=== PATIENT | male | born 1960 | race Caucasian/White ===

== ENCOUNTER 2018-03-22 18:27 | Inpatient (IN) ==
[2018-03-22 19:32] LABS: Basophils # (Auto) 0 K/mcL (0.0-0.3); Basophils % (Auto) 0.1 % (0.0-2.0); Eosinophils # (Auto) 0.5 K/mcL (0.0-0.7); Eosinophils % (Auto) 2.4 % (0.0-7.0); Granulocytes % (Auto) 85.9 % (38.0-78.0); Lymphocytes # (Auto) 0.9 K/mcL (1.5-4.8); Lymphocytes % (Auto) 4.5 % (15.5-49.0); Mean Corpuscular HGB Conc 33.3 g/dL (31.0-36.0); Mean Corpuscular Hemoglobin 30.9 pg (26.0-34.0); Monocytes # (Auto) 1.4 K/mcL (0.1-0.9); Monocytes % (Auto) 7.1 % (1.0-12.0); Platelet Count 204 K/mcL (140-440); RBC 4.67 M/mcL (4.50-5.90)
[2018-03-22 19:45] LABS: Appearance,Urine HAZY; Bacteria,Urine 0 /hpf (0); Bilirubin,Urine NEG (NEG); Color,Urine AMBER; Glucose,Urine (UA) NEGATIVE (NEG); Leukocyte Esterase,Urine 250 /uL (NEG); Mucus,Urine FEW /hpf (0); Protein,Urine 100 mg/dL (NEG); Specific Gravity,Urine 1.018 (1.000-1.035); Urine Blood 0.2 mg/dL (<0.03); Urine Hyaline Cast 5 /lpf (0-2); Urine RBC 10 /hpf (0-1); Urine Squamous Epithelial Cell 1 /hpf (0-4); Urine Transitional Epi Cells 1 /hpf (0-2); Urine WBC > 182 /hpf (0-4)
[2018-03-22 19:53] LABS: ALT/SGPT 20 U/l (0-40); Albumin 4.1 gm/dL (3.2-5.2); Albumin/Globulin Ratio 1.2 (1.0-2.3); Alkaline Phosphatase 54 U/L (39-117); Blood Urea Nitrogen 18 mg/dl (6-20)
[2018-03-22] MEDS ORDERED: 0.9 % SODIUM CHLORIDE 1,000 ML IV ONE ×2 (19:55→21:18)
[2018-03-22] MEDS ORDERED: cefTRIAXone 1 GM VIAL IV ONE ×2 (19:56→21:50)
--- NOTE | 2018-03-22 20:38 | Emergency Department Note ---
Male Urogenital HPI - General Chief complaint: Urogenital-Male Stated complaint: uti Time Seen by Provider: 03/22/18 18:35 Source: patient Mode of arrival: ambulatory Limitations: no limitations - History of Present Illness HPI Narrative: 57-year-old male presents with 3 day history of frequent urination but feeling like he needs to void more and cannot void. He is also been incontinent of urine and has had had to wear depends because the incontinence is so bad. He also has right flank pain. Denies dysuria. Positive chills, unknown fever. He does arrive very diaphoretic. No nausea or vomiting. No abdominal pain. Does like a severe distention in his bladder area. Has never had anything like this previously. Denies shortness of breath or difficulty breathing. States is just very hard to get comfortable. holding the right flank area. Improves with: none Worsens with: none Reports: incontinence. Denies: discharge, swelling, mass, urinary retention - Related Data Home Medications Medication Instructions Recorded Confirmed blood-glucose meter kit See Dose Instructions .ROUTE 07/13/15 03/02/18 .MEDSUPPLY isosorbide mononitrate ER 60 mg 60 mg PO BID tab 07/13/15 03/02/18 tablet,extended release 24 hr losartan 100 1 tab PO QDAY tab 07/13/15 03/02/18 mg-hydrochlorothiazide 25 mg tablet potassium chloride ER 20 mEq 20 meq PO QDAY tab 07/13/15 03/02/18 tablet,extended release(part/cryst) Previous Rx's Medication Instructions Recorded Truetest Test Strips See Dose Instructions .ROUTE 03/17/16 .MEDSUPPLY #100 each NS lancets 30 gauge See Dose Instructions .ROUTE 03/17/16 .MEDSUPPLY #100 each atorvastatin 20 mg tablet 20 mg PO QPM #90 tab 04/20/17 metoprolol tartrate 100 mg tablet 100 mg PO QDAY #90 tab 07/30/17 albuterol sulfate HFA 90 2 puff INHALATION Q4-6H PRN #18 g 09/28/17 mcg/actuation aerosol inhaler Lift Chair #1 ea 09/30/17 pantoprazole 40 mg tablet,delayed 40 mg PO QAM #90 tab 10/15/17 release metformin ER 500 mg 1,000 mg PO QAM #180 tab 02/10/18 tablet,extended release 24 hr gabapentin 300 mg capsule 600 mg PO TID #180 cap 02/22/18 hydrocodone 10 mg-acetaminophen 1 tab PO Q6H PRN #112 tab 03/03/18 325 mg tablet clonazepam 1 mg tablet 1 mg PO .COMPLEX #45 tab 03/19/18 Allergies Allergy/AdvReac Type Severity Reaction Status Date / Time codeine Allergy Unknown Rash Verified 03/02/18 13:06 latex Allergy Unknown Unknown Verified 03/02/18 13:06 morphine Allergy Unknown Rash Verified 03/02/18 13:06 Review of Systems All systems ED: reviewed and negative except as stated. Past Medical History - Past Medical History [facility] Narrative: Medical History (Last Reviewed 03/02/18 @ 13:05 by Kaley Collado CMA) Colon adenomas (Chronic) Neck Pain (Chronic) Onychomycosis (Chronic) Swelling (Chronic) Orthopnea (Chronic) Intentional weight loss (Chronic) Tobacco abuse (Resolved) Sleep apnea (Chronic) Shoulder impingement syndrome (Chronic) Sciatica (Chronic) Rheumatoid arthritis (Chronic) Osteoporosis (Chronic) Osteoarthritis, shoulder (Chronic) Osteoarthritis (Chronic) Obesity (Chronic) Myocardial infarction acute (Inactive) Muscle ache (Chronic) Low back pain (Chronic) Joint pain (Chronic) Insomnia (Chronic) Hypertension, essential (Chronic) Hyperlipidemia (Chronic) Heartburn (Chronic) Gastroesophageal reflux (Chronic) Fatigue (Chronic) Diabetes mellitus, type II (Chronic) Depressive disorder (Chronic) CAD (coronary artery disease) (Chronic) COPD (chronic obstructive pulmonary disease) (Chronic) Anxiety disorder (Chronic) Past Surgical History (Last Reviewed 03/02/18 @ 13:05 by Kaley Collado CMA) History of colonoscopy (Resolved) History of fusion of cervical spine (Resolved) Medical history: Reports: other (poor dentition) Psychiatric history: Reports: no psych history Surgical history ED: Reports: non-contributory - Social History smoking status: Former smoker Drug use: Reports: none Physical Exam Limitations: no limitations General appearance: alert, other (Diaphoretic) Head: atraumatic, normocephalic, normal inspection Eye: Present: normal appearance. Absent: conjunctival injection ENT: mucous membranes moist Neck: Present: normal inspection, trachea midline. Absent: tenderness, lymphadenopathy Chest: Present: normal inspection, symmetric chest wall rise Respiratory: Present: normal lung sounds bilaterally. Absent: respiratory distress, wheezes, accessory muscle use Cardiovascular: Present: regular rate, normal heart sounds Abdominal: Present: soft, normal bowel sounds. Absent: distention, tenderness Back: Present: CVA tenderness (R) Neurological: Present: alert, oriented X3 Psychiatric: Present: normal affect, normal mood Skin: Present: warm, intact, normal color, diaphoresis. Absent: rash Course Course Narrative: Dr. Liz called with radiology results. Patient has a lot of inflammation around the bladder with a severe cystitis as well as an enlarged prostate. [id number] I did speak with Dr. Horne, the hospitalist who agrees to admit the patient. Vital Signs Temperature 98.9 F 03/22/18 18:42 Pulse Rate 92 H 03/22/18 18:42 Respiratory Rate 24 H 03/22/18 18:42 Pulse Oximetry (%) 98 03/22/18 18:42 Temperature 98.9 F 03/22/18 18:42 Pulse Rate 92 H 03/22/18 18:42 Respiratory Rate 24 H 03/22/18 18:42 Pulse Oximetry (%) 98 03/22/18 18:42 Urogenital-Male - Lab Data Lab results reviewed: Yes I reviewed the patient's lab results. Result diagrams: 03/22/18 18:54 03/22/18 18:54 Lab Results 03/22/18 03/22/18 03/22/18 Range/Units 18:40 18:54 18:54 WBC 19.8 H (4.5-11.0) K/mcL RBC 4.67 (4.50-5.90) M/mcL Hgb 14.4 (13.5-16.5) g/dL Hct 43.4 (41.0-55.0) % MCV 93.0 (80.0-100.0) fL MCH 30.9 (26.0-34.0) pg MCHC 33.3 (31.0-36.0) g/dL RDW 13.0 (11.5-14.5) % Plt Count 204 (140-440) K/mcL MPV 8.5 (7.4-10.4) fL Gran % 85.9 H (38.0-78.0) % Lymph % (Auto) 4.5 L (15.5-49.0) % [place] % (Auto) 7.1 (1.0-12.0) % Eos % (Auto) 2.4 (0.0-7.0) % Baso % (Auto) 0.1 (0.0-2.0) % Gran # 17.0 H (1.8-8.0) K/mcL Lymph # (Auto) 0.9 L (1.5-4.8) K/mcL [place] # (Auto) 1.4 H (0.1-0.9) K/mcL Eos # (Auto) 0.5 (0.0-0.7) K/mcL Baso # (Auto) 0 (0.0-0.3) K/mcL VBG Lactic Acid (0.5-2.2) mmol/L Sodium 136 (133-145) mmol/L Potassium 3.6 (3.3-5.1) mmol/L Chloride 94 L (96-108) mmol/L Carbon Dioxide 26 (22-30) mmol/L Anion Gap 16.0 (8-16) BUN 18 (6-20) mg/dl Creatinine 1.3 H (0.7-1.2) mg/dl GFR Calculation 60 Glucose 155 H (70-105) mg/dL Calcium 9.3 (8.6-10.4) mg/dl Total Bilirubin 2.0 H (0.0-1.0) mg/dL AST 15 (0-37) U/l ALT 20 (0-40) U/l Alkaline Phosphatase 54 (39-117) U/L Total Protein 7.5 (5.9-8.4) gm/dL Albumin 4.1 (3.2-5.2) gm/dL Globulin 3.4 (2.2-3.7) gm/dL Albumin/Globulin Ratio 1.2 (1.0-2.3) Urine Color [place] Urine Appearance Hazy Urine pH 5.0 (5.0-9.0) Ur Specific [place] 1.018 (1.000-1.035) Urine Protein 100 A (NEG) mg/dL Urine Glucose (UA) Negative (NEG) mg/dL Urine Ketones Neg (NEG) mg/dL Urine Occult Blood 0.2 A (<0.03) mg/dL Urine Nitrate Neg (NEG) Urine Bilirubin Neg (NEG) mg/dL Urine Urobilinogen 2.0 A (NEG) mg/dL Ur Leukocyte Esterase 250 A (NEG) /uL Urine RBC 10 H (0-1) /hpf Urine WBC > 182 H (0-4) /hpf Ur Squamous Epith Cells 1 (0-4) /hpf Ur Transition Epith Cell 1 (0-2) /hpf Urine Bacteria 0 (0) /hpf Hyaline Casts 5 H (0-2) /lpf Urine Mucus Few (0) /hpf Ur Culture Indicated? Yes 03/22/18 Range/Units 20:08 WBC (4.5-11.0) K/mcL RBC (4.50-5.90) M/mcL Hgb (13.5-16.5) g/dL Hct (41.0-55.0) % MCV (80.0-100.0) fL MCH (26.0-34.0) pg MCHC (31.0-36.0) g/dL RDW (11.5-14.5) % Plt Count (140-440) K/mcL MPV (7.4-10.4) fL Gran % (38.0-78.0) % Lymph % (Auto) (15.5-49.0) % [place] % (Auto) (1.0-12.0) % Eos % (Auto) (0.0-7.0) % Baso % (Auto) (0.0-2.0) % Gran # (1.8-8.0) K/mcL Lymph # (Auto) (1.5-4.8) K/mcL [place] # (Auto) (0.1-0.9) K/mcL Eos # (Auto) (0.0-0.7) K/mcL Baso # (Auto) (0.0-0.3) K/mcL VBG Lactic Acid 2.4 H (0.5-2.2) mmol/L Sodium (133-145) mmol/L Potassium (3.3-5.1) mmol/L Chloride (96-108) mmol/L Carbon Dioxide (22-30) mmol/L Anion Gap (8-16) BUN (6-20) mg/dl Creatinine (0.7-1.2) mg/dl GFR Calculation Glucose (70-105) mg/dL Calcium (8.6-10.4) mg/dl Total Bilirubin (0.0-1.0) mg/dL AST (0-37) U/l ALT (0-40) U/l Alkaline Phosphatase (39-117) U/L Total Protein (5.9-8.4) gm/dL Albumin (3.2-5.2) gm/dL Globulin (2.2-3.7) gm/dL Albumin/Globulin Ratio (1.0-2.3) Urine Color Urine Appearance Urine pH (5.0-9.0) Ur Specific [place] (1.000-1.035) Urine Protein (NEG) mg/dL Urine Glucose (UA) (NEG) mg/dL Urine Ketones (NEG) mg/dL Urine Occult Blood (<0.03) mg/dL Urine Nitrate (NEG) Urine Bilirubin (NEG) mg/dL Urine Urobilinogen (NEG) mg/dL Ur Leukocyte Esterase (NEG) /uL Urine RBC (0-1) /hpf Urine WBC (0-4) /hpf Ur Squamous Epith Cells (0-4) /hpf Ur Transition Epith Cell (0-2) /hpf Urine Bacteria (0) /hpf Hyaline Casts (0-2) /lpf Urine Mucus (0) /hpf Ur Culture Indicated? - Radiology Data Radiology results reviewed: Yes I reviewed the patient's radiology results. Disposition Pt seen by INFUSION THERAPY NURSE/PA only: Yes Clinical Impression: Cystitis, Right flank pain Condition: Fair Referrals: Hadley Urbina MD [Primary Care Provider] - Time of Disposition: 21:25
[2018-03-22] MEDS ORDERED: cefTRIAXone 1 GM VIAL IM ONE (21:18)
[2018-03-22] MEDS ORDERED: LEVOFLOXACIN 750 MG/150 ML BAG IV ONE (21:18)
[2018-03-22] MEDS ORDERED: HYDROcodone/APAP 10/325MG TABLET PO ONE (22:31)
--- NOTE | 2018-03-22 22:45 | Internal Med History&Physical ---
Medical - H&P: [facility] Patient information: Note initiated : 03/22/18 at 10:45 pm Service Date, if different from initiated Date: [] Patient: Clifford Herbert a 57 y/o M admitted on for uti. Chief Complaint: [] Chief complaint: pain and chills History of present illness: Mr. Herbert is a 57 year old M with history of DM type II and morbid obesity who presents with three-day history of righ flank pain/incontinence. symptoms associated with increasing urinary frequency and lower abdominal discomfort. he describes pain as 6 out of 10-8 out of 10 mostly located in the right flank and epigastric area. He denies having prior similar events. He complains of low- grade fever with chills. Initial workup in the ER was significant for white count 20,000 along with tachycardia ,elevated venous lactate and pyuria. CT abdomen revealed cystitis with prostate enlargement possibly causing delayed urinary clearance. Hospitalist service was consulted in light of sepsis. patient was managed in ER per sepsis guidelines and received antibiotics crystalloids blood cultures. At the time of evaluation patient is alert oriented. he endorses to symptoms as above, he denies diarrhea or headache, photophobia, but endorses to myalgia and weakness. review of systems 10 point review systems was performed and is negative except once possible Medical - H&P: PMH Medical history: DM type II Anxiety disorder morbid obesity Neuropathy degenerative joint disease Coronary artery disease hyperlipidemia hypertension Pertinent family history: noncontributory Social history: quit smoking many years ago and lives with Drug use: none Alcohol use: none Medical - H&P: Meds Home Medications Medication Instructions Recorded Confirmed Type isosorbide mononitrate ER 60 mg 60 mg PO BID tab 07/13/15 03/23/18 History tablet,extended release 24 hr losartan 100 1 tab PO HS tab 07/13/15 03/23/18 History mg-hydrochlorothiazide 25 mg tablet potassium chloride ER 20 mEq 20 meq PO QDAY tab 07/13/15 03/23/18 History tablet,extended release(part/cryst) atorvastatin 20 mg tablet 20 mg PO QPM #90 tab 04/20/17 03/22/18 Rx metoprolol tartrate 100 mg tablet 100 mg PO QDAY #90 tab 07/30/17 03/23/18 Rx albuterol sulfate HFA 90 2 puff INHALATION Q4-6H PRN #18 g 10/30/17 04/23/18 Rx mcg/actuation aerosol inhaler metformin ER 500 mg 1,000 mg PO QAM #180 tab 02/10/18 03/23/18 Rx tablet,extended release 24 hr gabapentin 300 mg capsule 600 mg PO TID #180 cap 02/22/18 03/23/18 Rx hydrocodone 10 mg-acetaminophen 1 tab PO Q6H PRN #112 tab 03/03/18 03/23/18 Rx 325 mg tablet clonazePAM [Klonopin] 1 mg PO HS 03/22/18 03/22/18 History Nitroglycerin [Nitrostat] 0.4 mg SL Q5M PRN 03/23/18 03/23/18 History clonazePAM [KlonoPIN] 0.5 mg PO DAILY PRN 03/23/18 03/23/18 History Allergies Allergy/AdvReac Type Severity Reaction Status Date / Time codeine Allergy Intermediate Rash Verified 03/23/18 06:12 latex Allergy Intermediate Unknown Verified 03/23/18 06:12 morphine Allergy Intermediate Rash Verified 03/23/18 06:12 Medical - H&P: Exam - Constitutional Vitals: Temp Pulse Resp BP Pulse Ox 98.9 F 97 H 24 H 125/99 96 03/22/18 18:42 03/22/18 21:32 03/22/18 21:32 03/22/18 21:32 03/22/18 21:32 General appearance: morbidly obese Exam: Alert but anxious Pupils symmetric oral cavity dry No eardischarge Head normocephalic Neck lymphadenopathy S1-S2 regular rhythm tachycardia Systolic murmur nonlabored breathing,clear to auscultation abdomen softMinimally tender right flank and suprapubic area lower extremityno cyanosis clubbing, minimal edema Skin no suspicious lesion psych minimally anxious Neuro nonfocal Medical - H&P: Reslt - Labs CBC & Chem 7: 03/23/18 03:47 03/23/18 03:47 Labs: Short CBC 03/22/18 Range/Units 18:54 WBC 19.8 H (4.5-11.0) K/mcL Hgb 14.4 (13.5-16.5) g/dL Hct 43.4 (41.0-55.0) % Plt Count 204 (140-440) K/mcL BMP 03/22/18 18:54 Sodium 136 Potassium 3.6 Chloride 94 L Carbon Dioxide 26 BUN 18 Creatinine 1.3 H Glucose 155 H Calcium 9.3 Liver Function 03/22/18 Range/Units 18:54 Total Bilirubin 2.0 H (0.0-1.0) mg/dL AST 15 (0-37) U/l ALT 20 (0-40) U/l Alkaline Phosphatase 54 (39-117) U/L Albumin 4.1 (3.2-5.2) gm/dL Urine 03/22/18 Range/Units 18:40 Urine Color [place] Urine Appearance Hazy Urine pH 5.0 (5.0-9.0) Ur Specific [place] 1.018 (1.000-1.035) Urine Protein 100 A (NEG) mg/dL Urine Glucose (UA) Negative (NEG) mg/dL Medical - H&P: A/P (1) Sepsis Current visit: Yes Status: Acute * Sepsis secondary to complicated UTI-continue antibiotic coverage. Await cultures. * Complicated UTI likely secondary to delayed urinary clearance from prostate enlargement.continue antibiotic coverage. Await culture sensitivities * DM type II continue basal prandial insulin * history of coronary artery disease continueStatin/RYAN inhibitor/beta tania/ isosorbide * Anxiety disorder on clonazepam * neuropathy on gabapentin * Degenerative joint disease and hydrocodoneHome dose * Full code Plan * sepsis management per guidelines * antibiotic coverage * Lactate trending * Pre-existing medical condition management as above
[2018-03-22] MEDS ORDERED: LEVOFLOXACIN 750 MG/150 ML BAG IV SCH (23:43)
[2018-03-22] MEDS ORDERED: ACETAMINOPHEN 325 MG TABLET PO PRN (23:43)
[2018-03-22] MEDS ORDERED: MAGNESIUM SULFATE 2 GM/50 ML BAG IV PRN (23:43)
[2018-03-22] MEDS ORDERED: ACETAMINOPHEN 1,000 MG/100 ML BOTTLE IV PRN (23:43)
[2018-03-22] MEDS ORDERED: ONDANSETRON 4 MG/2 ML VIAL IV PRN (23:43)
[2018-03-22] MEDS ORDERED: POTASSIUM CHLORIDE 20 MEQ PACKET PO PRN (23:43)
[2018-03-22] MEDS ORDERED: 0.9 % SODIUM CHLORIDE 1,000 ML IV SCH (23:43)
[2018-03-22] MEDS: 0.9 % SODIUM CHLORIDE 10 ML SYRINGE IV SCH (23:46)
[2018-03-23] MEDS: cefTRIAXone 2 GM in DEXTROSE 5% IN WATER 50 ML IV SCH ×2 (00:15→09:32)
[2018-03-23] MEDS ORDERED: HYDROcodone/APAP 10/325MG TABLET PO PRN ×3 (01:52→10:23)
[2018-03-23] MEDS ORDERED: HYDROcodone/APAP 10/325MG TABLET PO ONE (03:23)
[2018-03-23 05:08] LABS: Mean Cell Volume 93.4 fL (80.0-100.0); Mean Corpuscular Hemoglobin 31.8 pg (26.0-34.0); Platelet Count 169 K/mcL (140-440); RBC 4.18 M/mcL (4.50-5.90); Red Cell Distribution Width 13.2 % (11.5-14.5)
[2018-03-23 05:14] LABS: ALT/SGPT 16 U/l (0-40); Albumin 3.5 gm/dL (3.2-5.2); Albumin/Globulin Ratio 1.1 (1.0-2.3); Alkaline Phosphatase 57 U/L (39-117); Bilirubin,Direct 0.2 mg/dL (0.0-0.3); Blood Urea Nitrogen 18 mg/dl (6-20); Gamma Glutamyl Transpeptidase 46 U/L (8-61); Uric Acid 7.6 mg/dL (2.5-8.0)
[2018-03-23] MEDS: 0.9 % SODIUM CHLORIDE 10 ML SYRINGE IV SCH ×3 (05:17→20:28)
--- NOTE | 2018-03-23 06:25 | XRay Report ---
CLINICAL INFORMATION: Elevated white blood cell count, fever and chills COMPARISON: 10/12/2017 two view chest. FINDINGS: Heart size, mediastinum and pulmonary vessels are unremarkable. There is minimal bibasilar airspace disease which is more likely atelectasis than developing infiltrate. No effusions . The bones and soft tissues tissues are normal IMPRESSION: Mild bibasilar airspace disease - likely atelectasis. If there is strong suspicion for pneumonia, suggest short-term radiographic follow-up Interpreted and Authenticated by: Jordon Liz 03/23/18
[2018-03-23 06:26] LABS: Band Neutrophils % 2 % (0-10); Lymphocytes % 6 % (15-49); Monocytes % (Manual) 11 % (1-12); Platelet Estimate NORMAL (NORMAL); RBC Morphology NORMAL (NORMAL); Segmented Neutrophils % 81 % (38-78)
--- NOTE | 2018-03-23 06:26 | Cat Scan Report ---
CLINICAL INFORMATION: Left flank pain and pyurea COMPARISON: None. TECHNIQUE: 0.625 mm helical slices were obtained from the mid heart through the subtrochanteric regions. Following reconstruction, 2.5 mm sagittal, coronal and axial reformatted images were processed and reviewed at bone and soft tissue windows.The exam was performed using radiation dose optimization techniques including, but not limited to, automated exposure control, adjustment of the mA and/or kV according to patient size and use of iterative reconstruction technique. FINDINGS: Both noncontrasted kidneys are normal and symmetric in size, position, configuration and attenuation: The right is 12.8 x 5.8 cm and the left is 12 x 5 cm. There is no evidence of abscess or other focal lesion in either kidney. There are no stones or hydronephrosis. The urinary bladder shows mild diffuse wall thickening, slight increased attenuation and mild inflammatory stranding in the pericystic fat. Findings suggest cystitis. The prostate is mildly enlarged: 5.4 x 6.1 x 5.3 cm Lung bases show no abnormality - no effusion. Visualized heart is normal in size: There is calcific plaque in the LAD coronary artery. Images through the abdomen show the noncontrasted liver, gallbladder and bile ducts, both adrenal glands, spleen, pancreas and aorta are normal in size, configuration and attenuation without focal lesion. There is no free air, free fluid and no adenopathy. Stomach, small and large bowel are grossly normal. Bone windows show only degenerative change in the lumbar spine IMPRESSION: Mild diffuse thickening and increased enhancement of the urinary bladder wall with inflammation in the adjacent fat. Findings compatible with the clinical diagnosis of cystitis. The prostate is mildly enlarged - especially for age. Patient could potentially have chronic bladder outlet obstruction with urinary stasis predisposing to infection. Interpreted and Authenticated by: Jordon Liz 03/23/18
[2018-03-23] MEDS ORDERED: GABAPENTIN 300 MG CAPSULE PO SCH (09:00)
[2018-03-23] MEDS ORDERED: ISOSORBIDE MONONITRATE 60 MG TAB.XL.24H PO SCH (09:00)
[2018-03-23] MEDS ORDERED: DOCUSATE SODIUM 100 MG CAPSULE PO SCH (09:00)
[2018-03-23] MEDS ORDERED: MULTIVIT,THER IRON,CA,FA & MIN 1 TABLET PO SCH (09:00)
[2018-03-23] MEDS ORDERED: METOPROLOL TARTRATE 50 MG TABLET PO SCH (09:00)
[2018-03-23] MEDS ORDERED: HEPARIN 5,000 UNIT/ML VIAL SQ SCH (09:00)
[2018-03-23] MEDS ORDERED: ALBUTEROL SULFATE 1 PUFF INHALER INH PRN ×2 (09:25→10:23)
[2018-03-23] MEDS ORDERED: clonazePAM 0.5 MG TABLET PO PRN ×2 (09:25→10:23)
[2018-03-23] MEDS ORDERED: NITROGLYCERIN 0.4 MG TAB.SUBL SL PRN ×2 (09:25→10:23)
[2018-03-23] MEDS ORDERED: DEXTROSE 31 GM ORAL.SUSP PO PRN ×2 (09:25→10:23)
[2018-03-23] MEDS ORDERED: DEXTROSE 50% 50 ML VIAL IV PRN ×2 (09:25→10:23)
--- NOTE | 2018-03-23 09:53 | Internal Med Progress Note ---
Medical - PN: Subj Patient information: Note initiated : 03/23/18 at 9:50 am Service Date, if different from initiated Date: [] Patient: Clifford Herbert a 57 y/o M admitted on 03/22/18 for uti. Chief Complaint: [] Interval history: Mr. Herbert is a 57 year old M with history of DM type II and morbid obesity who presents with three-day history of righ flank pain/incontinence. symptoms associated with increasing urinary frequency and lower abdominal discomfort. he describes pain as 6 out of 10-8 out of 10 mostly located in the right flank and epigastric area. He denies having prior similar events. He complains of low- grade fever with chills. Initial workup in the ER was significant for white count 20,000 along with tachycardia ,elevated venous lactate and pyuria. CT abdomen revealed cystitis with prostate enlargement possibly causing delayed urinary clearance. Hospitalist service was consulted in light of sepsis. patient was managed in ER per sepsis guidelines and received antibiotics crystalloids blood cultures. At the time of evaluation patient is alert oriented. he endorses to symptoms as above, he denies diarrhea or headache, photophobia, but endorses to myalgia and weakness. March 23-patient clinically improved. White count down from 20,000-15. Fever MAXIMUM TEMPERATURE 102.4. Abdominal pain improved. Lactate down trended. On broad antibiotic coverage. Cultures pending. Patient stable and transferring to medical floor. - Constitutional Vitals: Vital Signs Temp Pulse Resp BP Pulse Ox 97.6 F 98 H 15 150/90 96 03/23/18 07:19 03/23/18 03:33 03/23/18 09:22 03/23/18 07:19 03/23/18 07:22 Period Temp Pulse Resp BP Sys/Holbrook Pulse Ox Last 24 Hr 97.0 F-102.1 F 92-98 12-24 125-150/47-99 96-99 Intake and Output 03/22/18 03/23/18 03/23/18 21:59 05:59 13:59 Intake Total 1000 / 1000 1510 / 1510 240 / 240 Output Total Balance 1000 / 1000 1509 / 1509 240 / 240 Weight 317 lb 314 lb 6.08 oz Intake & Output: Intake & Output 04/23/18 04/24/18 04/24/18 21:59 05:59 13:59 Intake Total 1000 / 1000 1510 / 1510 240 / 240 Output Total Balance 1000 / 1000 1509 / 1509 240 / 240 Weight 317 lb 314 lb 6.08 oz Intake: IV 1000 / 1000 1150 / 1150 Sodium Chloride 0.9% 1,000 ml @ 1000 / 1000 1000 / 1000 Wide Open IV BOLUS ONE Rx#: [id number] Oral 360 / 360 240 / 240 Output: # of times incontinent of urine Other: Meal Breakfast Percent of Meal Consumed 75% Feeding Ability Assist with Tray Set Up General appearance: no acute distress Exam: alert oriented Nonlabored breathing nondistended abdomen Morbidly obese minimal anxiety Medical - PN: Obj Da - Labs CBC & Chem 7: 03/23/18 03:47 03/23/18 03:47 Labs: Abnormal Lab Results 03/23/18 03/23/18 03/22/18 03:47 03:47 20:08 WBC 16.1 H RBC 4.18 L Hgb 13.3 L Hct 39.0 L Gran % Lymph % (Auto) Gran # Lymph # (Auto) [place] # (Auto) Seg Neutrophils % 81 H Lymphocytes % 6 L WBC Morphology Abnorm A Vacuolated Monocytes 1+ A VBG Lactic Acid 2.4 H Chloride Creatinine 1.3 H Glucose 167 H Phosphorus 2.1 L Total Bilirubin 1.1 H Urine Protein Urine Occult Blood Urine Urobilinogen Ur Leukocyte Esterase Urine RBC Urine WBC Hyaline Casts 03/22/18 03/22/18 03/22/18 18:54 18:54 18:40 WBC 19.8 H RBC Hgb Hct Gran % 85.9 H Lymph % (Auto) 4.5 L Gran # 17.0 H Lymph # (Auto) 0.9 L [place] # (Auto) 1.4 H Seg Neutrophils % Lymphocytes % WBC Morphology Vacuolated Monocytes VBG Lactic Acid Chloride 94 L Creatinine 1.3 H Glucose 155 H Phosphorus Total Bilirubin 2.0 H Urine Protein 100 A Urine Occult Blood 0.2 A Urine Urobilinogen 2.0 A Ur Leukocyte Esterase 250 A Urine RBC 10 H Urine WBC > 182 H Hyaline Casts 5 H Meds: Medications Acetaminophen (Tylenol) 650 mg PO Q4-6HP PRN PRN Reason: PAIN/FEVER > 101 Hydrocodone Bitart/Acetaminophen ([place] 10/325mg) 1 tab PO Q6HP PRN PRN Reason: PAIN LEVEL 3-6 Last Admin: 03/23/18 09:47 Dose: 1 tab Hydrocodone Bitart/Acetaminophen ([place] 10/325mg) 1 tab PO Q6H PRN PRN Reason: Pain Albuterol Sulfate (Ventolin) 2 puff INH Q4-6H PRN PRN Reason: shortness of breath Atorvastatin Calcium (Lipitor) 20 mg PO QPM [facility] Clonazepam (Klonopin) 0.5 mg PO DAILY PRN PRN Reason: Anxiety Clonazepam (Klonopin) 1 mg PO HS [facility] Dextrose (Dextrose 50%) 0 ml IV UD PRN PRN Reason: Hypoglycemia Diagnostic Test (Pha) (Accu-Chek) 1 each FS ACHS [facility] Docusate Sodium (Colace) 100 mg PO BID [facility] Last Admin: 03/23/18 09:32 Dose: 100 mg Gabapentin (Neurontin) 600 mg PO TID [facility] Last Admin: 03/23/18 09:47 Dose: 600 mg Glucose (Insta-Glucose) 15 gm PO PRN PRN PRN Reason: Hypoglycemia Heparin Sodium (Porcine) (Heparin) 5,000 unit SQ Q12 [facility] Last Admin: 03/23/18 09:32 Dose: 5,000 unit Hydrochlorothiazide (Oretic) 25 mg PO HS [facility] Ceftriaxone Sodium 2 gm/ (Dextrose) 50 mls @ 100 mls/hr IV Q24H [facility] Last Admin: 03/23/18 09:32 Dose: 100 mls/hr Levofloxacin (Levaquin) 750 mg in 150 mls @ 100 mls/hr IV Q24H [facility] Last Admin: 03/22/18 23:46 Dose: Not Given Magnesium Sulfate (Magnesium Sulfate) 2 gm in 50 mls @ 50 mls/hr IV UD PRN PRN Reason: MG = or < 1.7 Sodium Chloride (Sodium Chloride 0.9%) 1,000 mls @ 50 mls/hr IV .Q20H [facility] Stop: 03/25/18 11:42 Last Admin: 03/23/18 00:23 Dose: 50 mls/hr Acetaminophen (Ofirmev) 1,000 mg in 100 mls @ 200 mls/hr IV Q6HP PRN PRN Reason: PAIN/FEVER > 101 Insulin Human Lispro (Humalog) 0 unit SQ ACHS [facility] PRN Reason: Protocol Iron Carb/Multivit/[place]ec[place]/Folic Acid (Multivitamin W/Minerals) 1 tab PO DAILY [facility] Last Admin: 03/23/18 09:32 Dose: 1 tab Isosorbide Mononitrate (Imdur) 60 mg PO BID [facility] Last Admin: 03/23/18 09:46 Dose: 60 mg Losartan Potassium (Cozaar) 100 mg PO [facility] Metformin HCl (Glucophage) 1,000 mg PO [facility] Metoprolol Tartrate (Lopressor) 100 mg PO DAILY [facility] Last Admin: 03/23/18 09:45 Dose: 100 mg Nitroglycerin (Nitrostat) 0.4 mg SL Q5M PRN PRN Reason: Chest Pain Ondansetron HCl (Zofran) 4 mg IV Q4-6HP PRN PRN Reason: Nausea And Vomiting Potassium Chloride (Klor-Con) 40 meq PO DAILYP PRN PRN Reason: K+ < 3.5 Potassium Chloride (Kdur) 20 meq PO [facility] Senna/Docusate Sodium (Senna Plus Tablet) 1 tab PO [facility] Sodium Chloride (Saline Flush) 10 ml IV Q8 [facility] Last Admin: 03/23/18 05:17 Dose: 10 ml Medical - PN: A/P - Time Spent With Patient Total time spent is greater than 50% in coordination of care (as documented) at patient's floor/unit and/or counseling patient: 15 - 24 minutes (1) Sepsis Status: Acute Assessment and plan: * Sepsis secondary to complicated UTI-Improving clinically with downtrending leukocytosis to 15,000.continue antibiotic coverage. Await urine and blood cultures. * Complicated UTI -clinical improvement noted. Improved dysuria/incontinence * DM type II continue basal prandial insulin. blood sugars around 150 * history of coronary artery disease continueStatin/RYAN inhibitor/beta tania/ isosorbide * Anxiety disorder on clonazepam * neuropathy on gabapentin * Degenerative joint disease and hydrocodone * Full code Plan * transfer to medical floor * Continue sepsis management per guidelines * antibiotic coverage * Pre-existing medical condition management as above Current Visit: Yes
[2018-03-23] MEDS ORDERED: ACETAMINOPHEN 1,000 MG/100 ML BOTTLE IV PRN (10:23)
[2018-03-23] MEDS ORDERED: POTASSIUM CHLORIDE 20 MEQ PACKET PO PRN (10:23)
[2018-03-23] MEDS ORDERED: ONDANSETRON 4 MG/2 ML VIAL IV PRN (10:23)
[2018-03-23] MEDS ORDERED: MAGNESIUM SULFATE 2 GM/50 ML BAG IV PRN (10:23)
[2018-03-23] MEDS ORDERED: ACETAMINOPHEN 325 MG TABLET PO PRN (10:23)
[2018-03-23] MEDS: 0.9 % SODIUM CHLORIDE 1,000 ML IV SCH (10:50)
[2018-03-23] MEDS ORDERED: INSULIN LISPRO 1 UNIT/0.01 ML UNIT SQ SCH (11:30)
[2018-03-23] MEDS: INSULIN LISPRO 1 UNIT/0.01 ML UNIT SQ SCH ×3 (11:53→20:42)
[2018-03-23] MEDS: GABAPENTIN 300 MG CAPSULE PO SCH ×2 (14:38→20:27)
[2018-03-23] MEDS: LEVOFLOXACIN 750 MG/150 ML BAG IV SCH (17:12)
[2018-03-23] MEDS: HYDROcodone/APAP 10/325MG TABLET PO PRN (17:17)
[2018-03-23] MEDS: clonazePAM 1 MG TABLET PO SCH (20:26)
[2018-03-23] MEDS: HYDROCHLOROTHIAZIDE 25 MG TABLET PO SCH (20:26)
[2018-03-23] MEDS: ATORVASTATIN 20 MG TABLET PO SCH (20:26)
[2018-03-23] MEDS: SENNOSIDES/DOCUSATE SODIUM 1 TAB TABLET PO SCH (20:26)
[2018-03-23] MEDS: ISOSORBIDE MONONITRATE 60 MG TAB.XL.24H PO SCH (20:26)
[2018-03-23] MEDS: HEPARIN 5,000 UNIT/ML VIAL SQ SCH (20:27)
[2018-03-23] MEDS: LOSARTAN 50 MG TABLET PO SCH (20:27)
[2018-03-23] MEDS: DOCUSATE SODIUM 100 MG CAPSULE PO SCH (20:27)
[2018-03-23] MEDS ORDERED: ATORVASTATIN 20 MG TABLET PO SCH (21:00)
[2018-03-23] MEDS ORDERED: LOSARTAN/HCTZ 100/25 TABLET PO SCH (21:00)
[2018-03-23] MEDS ORDERED: HYDROCHLOROTHIAZIDE 25 MG TABLET PO SCH (21:00)
[2018-03-23] MEDS ORDERED: clonazePAM 1 MG TABLET PO SCH (21:00)
[2018-03-23] MEDS ORDERED: SENNOSIDES/DOCUSATE SODIUM 1 TAB TABLET PO SCH (21:00)
[2018-03-23] MEDS ORDERED: LOSARTAN 50 MG TABLET PO SCH (21:00)
[2018-03-24] MEDS: 0.9 % SODIUM CHLORIDE 1,000 ML IV SCH ×3 (00:20→21:40)
[2018-03-24] MEDS: 0.9 % SODIUM CHLORIDE 10 ML SYRINGE IV SCH ×3 (04:50→20:34)
[2018-03-24 06:31] LABS: Mean Cell Volume 92.9 fL (80.0-100.0); Mean Corpuscular HGB Conc 33.8 g/dL (31.0-36.0); Mean Corpuscular Hemoglobin 31.4 pg (26.0-34.0); Platelet Count 182 K/mcL (140-440); RBC 4.11 M/mcL (4.50-5.90); Red Cell Distribution Width 12.9 % (11.5-14.5)
[2018-03-24] MEDS: HYDROcodone/APAP 10/325MG TABLET PO PRN ×2 (06:35→15:50)
[2018-03-24 06:56] LABS: ALT/SGPT 17 U/l (0-40); Albumin 3.6 gm/dL (3.2-5.2); Albumin/Globulin Ratio 1.1 (1.0-2.3); Alkaline Phosphatase 65 U/L (39-117); Bilirubin,Direct < 0.2 mg/dL (0.0-0.3); Blood Urea Nitrogen 18 mg/dl (6-20); Gamma Glutamyl Transpeptidase 48 U/L (8-61)
[2018-03-24] MEDS: metFORMIN 500 MG TAB.XL.24H PO SCH (07:36)
[2018-03-24] MEDS: INSULIN LISPRO 1 UNIT/0.01 ML UNIT SQ SCH ×4 (07:36→20:34)
[2018-03-24] MEDS: POTASSIUM CHLORIDE 20 MEQ TABLET PO SCH (07:37)
[2018-03-24] MEDS ORDERED: POTASSIUM CHLORIDE 20 MEQ TABLET PO SCH (08:00)
[2018-03-24] MEDS ORDERED: metFORMIN 500 MG TAB.XL.24H PO SCH (08:00)
[2018-03-24 08:41] LABS: Lymphocytes % 11 % (15-49); Monocytes % (Manual) 4 % (1-12); Platelet Estimate NORMAL (NORMAL); RBC Morphology NORMAL (NORMAL); Segmented Neutrophils % 85 % (38-78)
[2018-03-24] MEDS ORDERED: TAMSULOSIN 0.4 MG CAPSULE PO ONE (08:44)
[2018-03-24] MEDS: HEPARIN 5,000 UNIT/ML VIAL SQ SCH ×2 (08:51→20:32)
[2018-03-24] MEDS: MULTIVIT,THER IRON,CA,FA & MIN 1 TABLET PO SCH (08:52)
[2018-03-24] MEDS: METOPROLOL TARTRATE 50 MG TABLET PO SCH (08:52)
[2018-03-24] MEDS: ISOSORBIDE MONONITRATE 60 MG TAB.XL.24H PO SCH ×2 (08:52→20:33)
[2018-03-24] MEDS: GABAPENTIN 300 MG CAPSULE PO SCH ×3 (08:53→20:33)
[2018-03-24] MEDS: DOCUSATE SODIUM 100 MG CAPSULE PO SCH ×2 (08:53→20:34)
[2018-03-24] MEDS ORDERED: cefTRIAXone 2 GM VIAL ONE (08:58)
[2018-03-24] MEDS: cefTRIAXone 2 GM in DEXTROSE 5% IN WATER 50 ML IV SCH (09:00)
--- NOTE | 2018-03-24 09:31 | Internal Med Progress Note ---
Medical - PN: Subj Patient information: Note initiated : 03/24/18 at 9:27 am Service Date, if different from initiated Date: [] Patient: Clifford Herbert a 57 y/o M admitted on 03/22/18 for UTI, Sepsis. Chief Complaint: [] Interval history: Mr. Herbert is a 57 year old M with history of DM type II and morbid obesity who presents with three-day history of righ flank pain/incontinence. symptoms associated with increasing urinary frequency and lower abdominal discomfort. he describes pain as 6 out of 10-8 out of 10 mostly located in the right flank and epigastric area. He denies having prior similar events. He complains of low- grade fever with chills. Initial workup in the ER was significant for white count 20,000 along with tachycardia ,elevated venous lactate and pyuria. CT abdomen revealed cystitis with prostate enlargement possibly causing delayed urinary clearance. Hospitalist service was consulted in light of sepsis. patient was managed in ER per sepsis guidelines and received antibiotics crystalloids blood cultures. At the time of evaluation patient is alert oriented. he endorses to symptoms as above, he denies diarrhea or headache, photophobia, but endorses to myalgia and weakness. March 23-patient clinically improved. White count down from 20,000-15. Fever MAXIMUM TEMPERATURE 102.4. Abdominal pain improved. Lactate down trended. On broad antibiotic coverage. Cultures pending. Patient stable and transferring to medical floor. March 24-patient doing remarkably better. Abdominal pain resolved. Afebrile. White count down to 8000 from 19.8.creatinine down from 1.3-1. Cultures negative so far. Stable hemodynamics. On IV antibiotics.anticipate discharge in 24 hours. Can you physical therapy.blood sugars improving to 139 fasting. - Constitutional Vitals: Vital Signs Temp Pulse Resp BP Pulse Ox 96.8 F L 95 H 16 121/77 94 03/24/18 08:00 03/24/18 08:00 03/24/18 08:00 03/24/18 08:00 03/24/18 08:00 Period Temp Pulse Resp BP Sys/Holbrook Pulse Ox Last 24 Hr 96.8 F-99.0 F 82-105 16-22 121-169/71-92 94-96 Intake and Output 03/23/18 03/24/18 03/24/18 21:59 05:59 13:59 Intake Total 1040 / 1040 100 / 100 Output Total 53 / 53 351 / 351 200 / 200 Balance 987 / 987 -251 / -251 -200 / -200 Weight 317 lb Intake & Output: Intake & Output 03/23/18 03/24/18 03/24/18 21:59 05:59 13:59 Intake Total 1040 / 1040 100 / 100 Output Total 53 / 53 351 / 351 200 / 200 Balance 987 / 987 -251 / -251 -200 / -200 Weight 317 lb Intake: Oral 1040 / 1040 100 / 100 Output: Void Amount 50 / 50 350 / 350 200 / 200 # of times incontinent of urine 3 / 3 Other: Meal Dinner Percent of Meal Consumed 100% # Voids 3 1 General appearance: morbidly obese, no acute distress Exam: alert oriented nonlabored breathing Nontender abdomen No anxiety Ambulating Medical - PN: Obj Da - Labs CBC & Chem 7: 03/24/18 04:33 03/24/18 04:33 Labs: Abnormal Lab Results 03/24/18 03/24/18 03/23/18 04:33 04:33 03:47 WBC RBC 4.11 L Hgb 12.9 L Hct 38.2 L Gran % Lymph % (Auto) Gran # Lymph # (Auto) [place] # (Auto) Seg Neutrophils % 85 H Lymphocytes % 11 L WBC Morphology Vacuolated Monocytes VBG Lactic Acid Chloride Creatinine 1.3 H Glucose 139 H 167 H Phosphorus 2.1 L Total Bilirubin 1.1 H Urine Protein Urine Occult Blood Urine Urobilinogen Ur Leukocyte Esterase Urine RBC Urine WBC Hyaline Casts 03/23/18 03/22/18 03/22/18 03:47 20:08 18:54 WBC 16.1 H RBC 4.18 L Hgb 13.3 L Hct 39.0 L Gran % Lymph % (Auto) Gran # Lymph # (Auto) [place] # (Auto) Seg Neutrophils % 81 H Lymphocytes % 6 L WBC Morphology Abnorm A Vacuolated Monocytes 1+ A VBG Lactic Acid 2.4 H Chloride 94 L Creatinine 1.3 H Glucose 155 H Phosphorus Total Bilirubin 2.0 H Urine Protein Urine Occult Blood Urine Urobilinogen Ur Leukocyte Esterase Urine RBC Urine WBC Hyaline Casts 03/22/18 03/22/18 18:54 18:40 WBC 19.8 H RBC Hgb Hct Gran % 85.9 H Lymph % (Auto) 4.5 L Gran # 17.0 H Lymph # (Auto) 0.9 L [place] # (Auto) 1.4 H Seg Neutrophils % Lymphocytes % WBC Morphology Vacuolated Monocytes VBG Lactic Acid Chloride Creatinine Glucose Phosphorus Total Bilirubin Urine Protein 100 A Urine Occult Blood 0.2 A Urine Urobilinogen 2.0 A Ur Leukocyte Esterase 250 A Urine RBC 10 H Urine WBC > 182 H Hyaline Casts 5 H Meds: Medications Acetaminophen (Tylenol) 650 mg PO Q4-6HP PRN PRN Reason: PAIN/FEVER > 101 Hydrocodone Bitart/Acetaminophen ([place] 10/325mg) 1 tab PO Q6H PRN PRN Reason: Pain Last Admin: 03/24/18 06:35 Dose: 1 tab Albuterol Sulfate (Ventolin) 2 puff INH Q4-6H PRN PRN Reason: shortness of breath Atorvastatin Calcium (Lipitor) 20 mg PO QPM [facility] Last Admin: 03/23/18 20:26 Dose: 20 mg Clonazepam (Klonopin) 0.5 mg PO DAILY PRN PRN Reason: Anxiety Clonazepam (Klonopin) 1 mg PO HS [facility] Last Admin: 03/23/18 20:26 Dose: 1 mg Dextrose (Dextrose 50%) 0 ml IV UD PRN PRN Reason: Hypoglycemia Diagnostic Test (Pha) (Accu-Chek) 1 each FS ACHS [facility] Last Admin: 03/24/18 07:31 Dose: 1 each Docusate Sodium (Colace) 100 mg PO BID [facility] Last Admin: 03/24/18 08:53 Dose: 100 mg Gabapentin (Neurontin) 600 mg PO TID [facility] Last Admin: 03/24/18 08:53 Dose: 600 mg Glucose (Insta-Glucose) 15 gm PO PRN PRN PRN Reason: Hypoglycemia Heparin Sodium (Porcine) (Heparin) 5,000 unit SQ Q12 [facility] Last Admin: 03/24/18 08:51 Dose: 5,000 unit Hydrochlorothiazide (Oretic) 25 mg PO HS [facility] Last Admin: 03/23/18 20:26 Dose: 25 mg Ceftriaxone Sodium 2 gm/ (Dextrose) 50 mls @ 100 mls/hr IV Q24H [facility] Last Admin: 03/24/18 09:00 Dose: 100 mls/hr Levofloxacin (Levaquin) 750 mg in 150 mls @ 100 mls/hr IV Q24H [facility] Last Admin: 03/23/18 17:12 Dose: 100 mls/hr Magnesium Sulfate (Magnesium Sulfate) 2 gm in 50 mls @ 50 mls/hr IV UD PRN PRN Reason: MG = or < 1.7 Last Admin: 03/23/18 12:12 Dose: 50 mls/hr Sodium Chloride (Sodium Chloride 0.9%) 1,000 mls @ 50 mls/hr IV .Q20H [facility] Stop: 03/25/18 11:42 Last Admin: 03/24/18 04:50 Dose: Not Given Acetaminophen (Ofirmev) 1,000 mg in 100 mls @ 200 mls/hr IV Q6HP PRN PRN Reason: PAIN/FEVER > 101 Insulin Human Lispro (Humalog) 0 unit SQ ACHS [facility] PRN Reason: Protocol Last Admin: 03/24/18 07:36 Dose: 1 unit Iron Carb/Multivit/Treating Engineer/Folic Acid (Multivitamin W/Minerals) 1 tab PO DAILY [facility] Last Admin: 03/24/18 08:52 Dose: 1 tab Isosorbide Mononitrate (Imdur) 60 mg PO BID [facility] Last Admin: 03/24/18 08:52 Dose: 60 mg Losartan Potassium (Cozaar) 100 mg PO [facility] Last Admin: 03/23/18 20:27 Dose: 100 mg Metformin HCl (Glucophage) 1,000 mg PO [facility] Last Admin: 03/24/18 07:36 Dose: 1,000 mg Metoprolol Tartrate (Lopressor) 100 mg PO DAILY [facility] Last Admin: 03/24/18 08:52 Dose: 100 mg Nitroglycerin (Nitrostat) 0.4 mg SL Q5M PRN PRN Reason: Chest Pain Ondansetron HCl (Zofran) 4 mg IV Q4-6HP PRN PRN Reason: Nausea And Vomiting Potassium Chloride (Klor-Con) 40 meq PO DAILYP PRN PRN Reason: K+ < 3.5 Potassium Chloride (Kdur) 20 meq PO [facility] Last Admin: 03/24/18 07:37 Dose: 20 meq Senna/Docusate Sodium (Senna Plus Tablet) 1 tab PO [facility] Last Admin: 03/23/18 20:26 Dose: 1 tab Sodium Chloride (Saline Flush) 10 ml IV Q8 [facility] Last Admin: 03/24/18 04:50 Dose: Not Given Tamsulosin HCl (Flomax) 0.4 mg PO HS [facility] Medical - PN: A/P - Time Spent With Patient Total time spent is greater than 50% in coordination of care (as documented) at patient's floor/unit and/or counseling patient: 15 - 24 minutes (1) Sepsis Status: Acute Assessment and plan: * Sepsis secondary to complicated UTI-clinical improvement noted. White count down to 8000 from 20 * Complicated UTI -clinically improved. Cultures negative to date. Continue additional 5 days antibiotic * DM type II continue basal prandial insulin. blood sugars around 140 * history of coronary artery disease continue Statin/RYAN inhibitor/beta tania/ isosorbide * Anxiety disorder stable on clonazepam * neuropathy at baseline on gabapentin * Degenerative joint disease and hydrocodone * Full code Plan * continue antibiotics for additional 5 days * pre-existing medical condition management as above * possible discharge in 24 hours Current Visit: Yes
[2018-03-24] MEDS: LEVOFLOXACIN 750 MG/150 ML BAG IV SCH (10:35)
[2018-03-24] MEDS: LOSARTAN 50 MG TABLET PO SCH (20:33)
[2018-03-24] MEDS: HYDROCHLOROTHIAZIDE 25 MG TABLET PO SCH (20:33)
[2018-03-24] MEDS: SENNOSIDES/DOCUSATE SODIUM 1 TAB TABLET PO SCH (20:33)
[2018-03-24] MEDS: clonazePAM 1 MG TABLET PO SCH (20:33)
[2018-03-24] MEDS: ATORVASTATIN 20 MG TABLET PO SCH (20:33)
[2018-03-24] MEDS ORDERED: TAMSULOSIN 0.4 MG CAPSULE PO SCH (21:00)
[2018-03-25] MEDS: 0.9 % SODIUM CHLORIDE 1,000 ML IV SCH (06:19)
[2018-03-25] MEDS: 0.9 % SODIUM CHLORIDE 10 ML SYRINGE IV SCH (06:19)
[2018-03-25 06:42] LABS: Mean Cell Volume 93.2 fL (80.0-100.0); Mean Corpuscular HGB Conc 33.7 g/dL (31.0-36.0); Mean Corpuscular Hemoglobin 31.3 pg (26.0-34.0); Platelet Count 197 K/mcL (140-440); RBC 4.08 M/mcL (4.50-5.90); Red Cell Distribution Width 13.1 % (11.5-14.5)
[2018-03-25 07:03] LABS: ALT/SGPT 26 U/l (0-40); Albumin 3.4 gm/dL (3.2-5.2); Alkaline Phosphatase 58 U/L (39-117); Bilirubin,Direct < 0.2 mg/dL (0.0-0.3); Blood Urea Nitrogen 19 mg/dl (6-20); Gamma Glutamyl Transpeptidase 56 U/L (8-61); Uric Acid 6.9 mg/dL (2.5-8.0)
[2018-03-25] MEDS: INSULIN LISPRO 1 UNIT/0.01 ML UNIT SQ SCH ×2 (08:05→11:29)
[2018-03-25] MEDS: POTASSIUM CHLORIDE 20 MEQ TABLET PO SCH (08:07)
[2018-03-25] MEDS: metFORMIN 500 MG TAB.XL.24H PO SCH (08:08)
[2018-03-25] MEDS: HEPARIN 5,000 UNIT/ML VIAL SQ SCH (08:25)
[2018-03-25] MEDS: METOPROLOL TARTRATE 50 MG TABLET PO SCH (08:26)
[2018-03-25] MEDS: ISOSORBIDE MONONITRATE 60 MG TAB.XL.24H PO SCH (08:27)
[2018-03-25] MEDS: GABAPENTIN 300 MG CAPSULE PO SCH (08:27)
[2018-03-25] MEDS: HYDROcodone/APAP 10/325MG TABLET PO PRN (08:28)
[2018-03-25] MEDS: MULTIVIT,THER IRON,CA,FA & MIN 1 TABLET PO SCH (08:30)
[2018-03-25] MEDS: DOCUSATE SODIUM 100 MG CAPSULE PO SCH (08:30)
[2018-03-25] MEDS: cefTRIAXone 2 GM in DEXTROSE 5% IN WATER 50 ML IV SCH (08:55)
--- NOTE | 2018-03-25 09:16 | Discharge Summary ---
Medical - DS: Prov Patient information: Note initiated : 03/25/18 at 9:13 am Service Date, if different from initiated Date: [] Patient: Clifford Herbert 57 y/o M admitted on 03/22/18 for UTI, Sepsis. Chief Complaint: [] Date of admission: 03/22/18 23:34 Discharge date: 03/25/18 Primary care physician: Hadley Urbina Consults: 03/22/18 21:32 Consult to Physician [CONS] Stat Comment: Consulting Provider: Andres Rodriguez Reason For Exam: Physician to Consult Medical - DS: Meds - Discharge Medications Prescriptions: Ciprofloxacin HCl [Cipro] 500 mg PO BID #10 tab Tamsulosin [Flomax] 0.4 mg PO HS #30 cap Active and Home Medications: Home Medications isosorbide mononitrate ER 60 mg tablet,extended release 24 hr 60 mg PO BID tab 07/13/15 [History Confirmed 03/23/18 Last Taken 03/22/18 08:00] losartan 100 mg-hydrochlorothiazide 25 mg tablet 1 tab PO HS tab 07/13/15 [ History Confirmed 03/23/18 Last Taken 03/22/18 08:00] potassium chloride ER 20 mEq tablet,extended release(part/cryst) 20 meq PO QDAY tab 07/13/15 [History Confirmed 03/23/18 Last Taken 03/22/18 08:00] atorvastatin 20 mg tablet 20 mg PO QPM #90 tab 04/20/17 [Rx Confirmed 03/22/18 Last Taken 03/21/18 20:00] metoprolol tartrate 100 mg tablet 100 mg PO QDAY #90 tab 07/30/17 [Rx Confirmed 03/23/18 Last Taken 03/22/18 08:00] albuterol sulfate HFA 90 mcg/actuation aerosol inhaler 2 puff INHALATION Q4-6H PRN #18 g 09/28/17 [Rx Confirmed 03/22/18 Last Taken Unknown] metformin ER 500 mg tablet,extended release 24 hr 1,000 mg PO QAM #180 tab 02/10 [Rx Confirmed 03/23/18 Last Taken 03/22/18 08:00] gabapentin 300 mg capsule 600 mg PO TID #180 cap 02/22/18 [Rx Confirmed Last Taken 03/22/18 10:00] hydrocodone 10 mg-acetaminophen 325 mg tablet 1 tab PO Q6H PRN #112 tab [Rx Confirmed 03/23/18 Last Taken 03/22/18 22:40] clonazePAM [Klonopin] 1 mg PO HS 03/22/18 [History Confirmed 03/22/18 Last Taken 03/21/18 20:00] Nitroglycerin [Nitrostat] 0.4 mg SL Q5M PRN 03/23/18 [History Confirmed Last Taken Unknown] clonazePAM [Klonopin] 0.5 mg PO DAILY PRN 03/23/18 [History Confirmed 03/23/18 Last Taken Unknown] Ciprofloxacin HCl [Cipro] 500 mg PO BID #10 tab 03/25/18 [Rx Last Taken Unknown] Tamsulosin [Flomax] 0.4 mg PO HS #30 cap 03/25/18 [Rx Last Taken Unknown] Medical - DS: Hosp Hospital course: DISCHARGE DIAGNOSIS * Sepsis clinically resolved. White count normalized. * Complicated Escherichia coli UTI -current resolved. Continue medication 5 days oral ciprofloxacin * DM type II continue basal prandial insulin. blood sugars abdomen: * history of coronary artery disease continue Statin/RYAN inhibitor/beta tania/ isosorbide * Anxiety disorder stable on clonazepam * neuropathy at baseline on gabapentin * Degenerative joint disease and hydrocodone [facility] Mr. Herbert is a 57 year old M with history of DM type II and morbid obesity who presents with three-day history of righ flank pain/incontinence. symptoms associated with increasing urinary frequency and lower abdominal discomfort. he describes pain as 6 out of 10-8 out of 10 mostly located in the right flank and epigastric area. He denies having prior similar events. He complains of low- grade fever with chills. Initial workup in the ER was significant for white count 20,000 along with tachycardia ,elevated venous lactate and pyuria. CT abdomen revealed cystitis with prostate enlargement possibly causing delayed urinary clearance. Hospitalist service was consulted in light of sepsis. patient was managed in ER per sepsis guidelines and received antibiotics crystalloids blood cultures. At the time of evaluation patient is alert oriented. he endorses to symptoms as above, he denies diarrhea or headache, photophobia, but endorses to myalgia and weakness. March 23-patient clinically improved. White count down from 20,000-15. Fever MAXIMUM TEMPERATURE 102.4. Abdominal pain improved. Lactate down trended. On broad antibiotic coverage. Cultures pending. Patient stable and transferring to medical floor. March 24-patient doing remarkably better. Abdominal pain resolved. Afebrile. White count down to 8000 from 19.8.creatinine down from 1.3-1. Cultures negative so far. Stable hemodynamics. On IV antibiotics.anticipate discharge in 24 hours. Can you physical therapy.blood sugars improving to 139 fasting. March 25-patient discharging home. Clinically improved. Sepsis resolved. Cultures pansensitive Escherichia coli. Continue additional 5 days oral ciprofloxacin. Urinary retention much improved on Flomax. Follow up primary care physician and urology as outpatient. Discharge diagnosis: . - Time Spent with Patient Total time spent providing and/or coordinating discharge services: Greater than 30 minutes Medical - DS: Exam - Constitutional Vitals: Vital Signs Temp Pulse Pulse Resp BP Pulse Ox 03/25/18 07:22 98.6 F 80 80 16 138/82 96 03/25/18 07:04 80 03/25/18 04:00 98.5 F 96 H 20 128/77 95 03/25/18 00:00 97.8 F 96 H 18 102/63 97 03/24/18 19:59 97.9 F 79 18 131/82 96 03/24/18 16:00 97.9 F 82 20 117/78 96 03/24/18 11:55 97.3 F 20 145/88 97 Intake and Output 03/24/18 03/25/18 03/25/18 21:59 05:59 13:59 Intake Total 2200 / 2200 650 / 650 Output Total 900 / 900 Balance 2200 / 2200 650 / 650 -900 / -900 Intake: IV 1000 / 1000 Sodium Chloride 0.9% 1,000 ml @ 1000 / 1000 50 mls/hr IV .Q20H [facility] Rx#: [id number] Oral 1200 / 1200 650 / 650 Output: Void Amount 900 / 900 Other: Meal Dinner Percent of Meal Consumed 75% Feeding Ability Independent # Voids 1 1 1 Weight 316 lb Medical - DS: Data Labs on day of discharge: Labs from last 24 hours 03/25/18 03/25/18 04:46 04:46 WBC 6.2 RBC 4.08 L Hgb 12.8 L Hct 38.0 L MCV 93.2 MCH 31.3 MCHC 33.7 RDW 13.1 Plt Count 197 MPV 8.5 Total Counted Pending Band Neutrophils % Not Reportable Platelet Estimate Pending RBC Morphology Pending Sodium 136 Potassium 3.3 Chloride 96 Carbon Dioxide 25 Anion Gap 15.0 BUN 19 Creatinine 1.0 GFR Calculation 83 Glucose 147 H Uric Acid 6.9 Calcium 8.8 Phosphorus 3.2 Magnesium 1.9 Total Bilirubin 0.7 Direct Bilirubin < 0.2 GGT 56 AST 37 ALT 26 Alkaline Phosphatase 58 Lactate Dehydrogenase 220 Total Protein 6.9 Albumin 3.4 Globulin 3.5 Albumin/Globulin Ratio 1.0 Triglycerides 194 H Preliminary micro results at discharge 03/22/18 20:08 Blood Culture - Preliminary Blood 03/22/18 20:14 Blood Culture - Preliminary Blood Medical - DS: A/P - Patient/Caregiver Discharge Instructions Activity: increase activity as tolerated Diet: Consistent Carbohydrate Additional Instructions: Follow-up PCP in 5 days follow-up urology for evaluation of urinary retention/BPH I recommend primary care physician to check CBC BMP UA as a posthospital follow- up in 2 weeks. Antibiotics for additional 5 days Continue aggressive bowel regimen to prevent constipation Continue fall precautions Return to ER if worsening fever chills shortness of breath, diarrhea, bleeding Review risk and side effect profile of medications including antibiotics. Side effect may include mild to severe reaction including rash, diarrhea, cdiff and even which can be prevented by close follow-up with PCP and monitoring for side effects Continue diet and activity as advised Discussed importance of medication adherence Please review medication list with patient prior to discharge Please schedule follow-up with PCP/Providers prior to discharge and provide printouts Portions of this chart may have been created with [employer] voice recognition software. Occasional wrong-word or ?sound-like? substitutions may have occurred due to the inherent limitations of voice recognition software. Please read the chart carefully and recognize, using context, where the substitutions have occurred. CC- PCP Prescriptions: Ciprofloxacin HCl [Cipro] 500 mg PO BID #10 tab Tamsulosin [Flomax] 0.4 mg PO HS #30 cap - Problem Maintenance (1) Sepsis Status: Acute Qualifiers: Sepsis type: Escherichia coli Qualified Code(s): A41.51 - Sepsis due to Escherichia coli [E. coli] - Follow up Plan Follow up with: Hadley Urbina MD [Primary Care Provider] - Luis Felipe Paris MD [Physician] - Disposition: Home, Self-Care Prognosis: Fair Rehab Potential: Fair I certify that the patient requires SNF services: No Overall status at discharge: patient is progressing back to baseline
[2018-03-25] MEDS: LEVOFLOXACIN 750 MG/150 ML BAG IV SCH (09:45)
[2018-03-25 10:00] LABS: Basophils % (Manual) 1 % (0-2); Lymphocytes % 12 % (15-49); Monocytes % (Manual) 14 % (1-12); Platelet Estimate NORMAL (NORMAL); RBC Morphology NORMAL (NORMAL); Segmented Neutrophils % 71 % (38-78)
== END 2018-03-25 12:00 | disposition home or self-care (01) | DRG 872 ==
LOC: ED 18:27 → ICU 23:34 → MEDSUR 03-23 11:24
PROVIDERS: ADMIT Internal Medicine; ATTEND Internal Medicine

== ENCOUNTER 2022-10-18 13:41 | Inpatient (IN) ==
[2022-10-18] MEDS ORDERED: IOPAMIDOL 100 ML BOTTLE IV ONE (13:42)
[2022-10-18] MEDS ORDERED: LACTATED RINGERS 1,000 ML IV ONE (13:57)
[2022-10-18] MEDS ORDERED: PIPERACILLIN SODIUM/TAZOBACTAM 4.5 GM in DEXTROSE 5% IN WATER 50 ML IV ONE (13:58)
[2022-10-18] MEDS ORDERED: VANCOMYCIN 1,000 MG in 0.9 % SODIUM CHLORIDE 250 ML IV ONE (13:58)
[2022-10-18] MEDS ORDERED: 0.9 % SODIUM CHLORIDE 1,000 ML IV ONE (14:01)
[2022-10-18 14:07] LABS: POC INR 1.2 (0.8-1.2); POC Pro Time 14.4 (11.9-14.5)
--- NOTE | 2022-10-18 14:21 | Cat Scan Report ---
CLINICAL INFORMATION: Code stroke COMPARISON: None. TECHNIQUE: 2.5 mm helical slices were obtained in the skull base to vertex. Following reconstruction, axial reformatted images were reviewed at bone and parenchymal windows. The exam was performed using radiation dose optimization techniques including, but not limited to, automated exposure control, adjustment of the mA and/or kV according to patient size and use of iterative reconstruction technique. FINDINGS: The ventricles, sulci, fissures, and cisterns are symmetrically enlarged compatible with mild age-related atrophy. No extra-axial fluid collections are identified. Mild patchy chronic ischemic changes, in the deep cerebral white matter, are expected for age. There is no hemorrhage, mass effect, or edema. Bone windows show no osseous abnormality. IMPRESSION: Mild atrophy and chronic ischemic changes in the deep cerebral white matter-expected for age. No acute findings Interpreted and Authenticated by: Jordon Liz 10/18/22
--- NOTE | 2022-10-18 14:39 | XRay Report ---
CLINICAL INFORMATION: Weakness COMPARISON: 05/05/2022 TECHNIQUE: Portable FINDINGS: The heart size, mediastinum and pulmonary vessels are unremarkable. The lungs are clear. There are no effusions. The bones and soft tissues are within normal limits. IMPRESSION: Normal chest. Interpreted and Authenticated by: Jordon Liz 10/18/22
[2022-10-18 14:49] LABS: Basophils # (Auto) 0.03 K/mcL (0.00-0.30); Basophils % (Auto) 0.2 % (0.0-2.0); Eosinophils # (Auto) 0 K/mcL (0.00-0.70); Eosinophils % (Auto) 0 % (0.0-7.0); Hematocrit 41.5 % (40.1-51.0); Lymphocytes # (Auto) 0.38 K/mcL (1.50-4.80); Lymphocytes % (Auto) 1.9 % (15.5-49.0); Mean Cell Volume 87.7 fL (80.0-100.0); Mean Corpuscular HGB Conc 33.7 g/dL (31.0-36.0); Monocytes # (Auto) 0.82 K/mcL (0.10-0.90); Monocytes % (Auto) 4.1 % (1.0-12.0); Neutrophils % (Auto) 93.1 % (38.0-78.0); Platelet Count 190 K/mcL (140-440); RBC 4.73 M/mcL (4.63-6.08); Red Cell Distribution Width 12.5 % (11.5-14.5)
--- NOTE | 2022-10-18 14:57 | Cat Scan Report ---
CLINICAL INFORMATION: Code stroke COMPARISON: None. TECHNIQUE: 80 cc of Isovue-300 were injected intravenously followed by 40 cc of normal saline flush. Using SmartPrep, 0.625 helical slices were obtained from the thoracic aortic arch through the [place]. Following reconstruction, 2.5 mm sagittal, coronal and axial reformatted images were processed. MIPS , 3-D volume rendering and CPR images were also constructed. The exam was performed using radiation dose optimization techniques including, but not limited to, automated exposure control, adjustment of the mA and/or kV according to patient size and use of iterative reconstruction technique. FINDINGS: The thoracic aortic arch is normal diameter with minimal intimal thickening and conventional aortic branching. The brachiocephalic, both subclavian, both common, internal and external carotid and both vertebral arteries are widely patent without significant abnormality. No soft tissue abnormality. Anterior fusion changes C4-5 and C6-7 are solid. At C3-4 moderate broad disc protrusion and facet arthropathy result in moderate bilateral lateral recess and central canal narrowing. At the C6-7 fusion level, there is severe left IV foraminal narrowing with impingement of the exiting left C7 nerve root. Moderate central canal stenosis IMPRESSION: Thoracic aortic arch brachycephalic subclavian carotid and vertebral arteries are widely patent. Degenerative stenosis in the cervical spine-as described Interpreted and Authenticated by: Jordon Liz 10/18/22
--- NOTE | 2022-10-18 14:59 | Emergency Department Note ---
Weakness HPI General Chief complaint: Weakness Stated complaint: weakness Time Seen by Provider: 10/18/22 13:57 Source: patient and EMS Mode of arrival: EMS History of Present Illness HPI Narrative: 62-year-old male with a history of COPD, CAD, diabetes, venous stasis, lower extremity edema, chronic back pain presents the ED with generalized weakness concern for possible stroke. Last known well was about 10 PM yesterday. History obtained from mostly the family member at bedside. Patient woke up this morning already feeling weak, he made it to his bathroom and sit on the toilet but then was even weaker and unable to get up, EMS were called they came to the house helped him up and back to bed, they noted he was leaning somewhat to the left but patient did not want to come to the ER at that time. They subsequently left however they were called back to the house for progression of his weakness this afternoon and was conveyed to the ER. Here in the ER initially patient is oriented x2-3 but really not able to answer detailed questions but does easily answer yes or no questions. He denies fever, chest pain, shortness of breath, abdominal pain nausea vomiting diarrhea. He does endorse generalized whole body weakness, he is unsure if he is particularly more weak on one side or the other. Denies any vision change. Patient does have obvious erythema and induration to his left leg, patient denies any new leg pain he was not aware of these findings denies any acute complaints to his leg. Related Data Home Medications Medication Instructions Recorded Confirmed isosorbide mononitrate 60 mg 60 mg PO BID 07/13/15 10/18/22 tablet,extended release 24 hr potassium chloride 20 mEq 20 meq PO QDAY 07/13/15 10/18/22 tablet,extended release(part/cryst) aspirin 81 mg tablet,delayed 81 mg PO DAILY 01/18/19 09/01/22 release amlodipine 10 mg tablet 10 mg PO QDAY 01/08/22 10/18/22 losartan 100 mg tablet 100 mg PO QDAY 01/08/22 10/18/22 furosemide 20 mg tablet 20 mg PO QDAY 04/17/22 09/01/22 famotidine 40 mg tablet 40 mg PO QDAY 10/18/22 10/18/22 metoprolol tartrate 50 mg tablet 50 mg PO BID 10/18/22 10/18/22 Previous Rx's Medication Instructions Recorded atorvastatin 20 mg tablet 20 mg PO QPM #90 tabs 05/24/18 naloxone 4 mg/actuation nasal spray 1 spray intranasal Q2-3M PRN 07/06/19 opioid overdose #2 ea nebulizer machine #1 ea 11/24/19 nebulizer accessories #1 ea 02/02/20 ipratropium 0.5 mg-albuterol 3 mg 3 ml inhalation Q6H PRN shortness 10/23/20 (2.5 mg base)/3 mL nebulization of breath or wheezing #180 mL soln Compression stockings #2 ea 12/31/20 hydralazine 25 mg tablet 25 mg PO BID #180 tabs 01/08/22 nitroglycerin 0.4 mg sublingual 0.4 mg sublingual Q5M PRN Chest 01/08/22 tablet Pain #7 tabs ipratropium bromide 0.02 % 0.5 mg (2.5 mL) inhalation Q6H PRN 02/18/22 solution for inhalation shortness of breath or wheezing #75 mL albuterol sulfate 90 mcg/actuation 2 puff inhalation Q4-6HP PRN 05/28/22 aerosol inhaler Wheezing #8.5 grams Diabetic shoes #1 ea 08/07/22 tamsulosin 0.4 mg capsule 0.8 mg PO QDAY BPH #60 caps 08/26/22 metformin 500 mg tablet,extended 1,000 mg PO QAM #180 tabs 09/17/22 release 24 hr diclofenac sodium 75 mg 75 mg PO BID #180 tabs 09/23/22 tablet,delayed release oxycodone-acetaminophen 7.5 mg-325 1 tab PO Q4H PRN pain #168 tabs 10/07/22 mg tablet gabapentin 300 mg capsule 600 mg PO TID #180 caps 10/14/22 Allergies Allergy/AdvReac Type Severity Reaction Status Date / Time codeine Allergy Intermediate Rash Verified 09/01/22 09:24 latex Allergy Intermediate Unknown Verified 09/01/22 09:24 morphine Allergy Intermediate Rash Verified 09/01/22 09:24 Review of Systems ROS ROS Narrative: Narrative: All systems ED: reviewed and negative except as stated. [facility] Narr[facility] Patient History Narrative: Narrative: Medical/Surgical/Family History All Active Problems (Updated 10/18/22 @ 15:36 by Luisito Aguirre DO) Sepsis (Acute) Cellulitis of left leg (Acute) Encephalopathy acute (Acute) Ulcer of left fifth toe due to diabetes mellitus (Acute) Anxiety disorder (Chronic) COPD (chronic obstructive pulmonary disease) (Chronic) CAD (coronary artery disease) (Chronic) Depressive disorder (Chronic) Diabetes mellitus, type II (Chronic) Fatigue (Chronic) Gastroesophageal reflux (Chronic) Heartburn (Chronic) Hyperlipidemia (Chronic) Hypertension, essential (Chronic) Insomnia (Chronic) Joint pain (Chronic) Low back pain (Chronic) Muscle ache (Chronic) Obesity (Chronic) Osteoarthritis (Chronic) Osteoarthritis, shoulder (Chronic) Osteoporosis (Chronic) Rheumatoid arthritis (Chronic) Sciatica (Chronic) Shoulder impingement syndrome (Chronic) Sleep apnea (Chronic) History of colonoscopy (Chronic) Intentional weight loss (Chronic) Orthopnea (Chronic) Swelling (Chronic) Neck Pain (Chronic) Bilateral shoulder pain (Chronic) Colon adenomas (Chronic) Spinal stenosis (Chronic) Foraminal stenosis of lumbar region (Chronic) Gastroparesis (Chronic) Metabolic syndrome (Chronic) Joint pain (Chronic) Recurrent bacterial cystitis (Acute) Morbid obesity with BMI of 40.0-44.9, adult (Chronic) Major depressive disorder, recurrent severe without psychotic features (Chronic) 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) Pain and swelling of left lower extremity (Acute) Chronic use of opiate for therapeutic purpose (Chronic) Acute exacerbation of chronic obstructive airways disease (Acute) Respiratory distress (Acute) Dental infection (Acute) Contusion of hand (Acute) Abrasion of multiple sites of left upper arm (Acute) Neck injury (Acute) Cervical disc disorder with radiculopathy (Acute) Hx of fusion of cervical spine (Acute) Lower urinary tract symptoms (LUTS) (Acute) Prostate cancer screening (Acute) H/O cervical spine surgery (Acute) H/O cervical discectomy (Chronic ~11/02/20) Cellulitis (Acute) Bilateral lower extremity edema (Acute) Acute dyspnea (Acute) Ulcer of left heel (Acute) Cervical disc disease (Chronic) BPH loc w urin obs/LUTS (Acute) Fall (Acute) Generalized weakness (Acute) Multiple falls (Acute) COVID-19 virus infection (Acute) Obesity with alveolar hypoventilation and body mass index (BMI) of 40 or greater (Acute) Cough (Acute) Pharyngitis (Acute) Elevated PSA, less than 10 ng/ml (Acute) Medical History Anxiety disorder Bilateral shoulder pain CAD (coronary artery disease) 1998 chronically occluded RCA. No anginal symptoms currently. Medically optimized. Follows with cardiology. Cellulitis of left lower extremity Responded to Bactrim, after failing Keflex Chest pain Pain at rest. Nitro improved pain. Chronic use of opiate for therapeutic purpose Colon adenomas 02/10/17-3 year follow-up COPD (chronic obstructive pulmonary disease) Mild without hypoxia Uses duo nebs as needed Cystitis Dental abscess Dental infection Depressive disorder Diabetes mellitus, type II Since 02/14/2015 Well-controlled on metformin ER 1000 mg daily. Diabetic foot exam today. No numbness, but does have a lot of callus. Palpable pulses. He follows with podiatry about every 2 months. Weight loss, exercise, and diabetic diet recommended. Diabetic eye exam up-to-date Fatigue Foraminal stenosis of lumbar region Worst at L4-S1 Gastroesophageal reflux Gastroparesis On EGD 12/08/17 Greater trochanteric bursitis of right hip Heartburn Hyperlipidemia Hypertension, essential Typically well controlled on hydralazine 25 mg twice daily, isosorbide 60 mg twice daily, metoprolol tartrate 100 mg daily, losartan 100 mg daily, hydrochlorothiazide 25 mg daily, and amlodipine 10 mg daily A little bit low today. He has been monitoring blood pressure at home, but forgot to bring his logs in Insomnia Intentional weight loss 31 pounds since August Joint pain Joint pain Leukocytosis Low back pain Mild pain radiating to limbs, but pain is mostly in the back. Major depressive disorder, recurrent severe without psychotic features Metabolic syndrome Morbid obesity with BMI of 40.0-44.9, adult Muscle ache Myocardial infarction acute 1998 Neck injury Neck Pain Prior fusion Obesity Onychomycosis nails are cut very short Orthopnea Osteoarthritis Osteoarthritis cervical spine 1991 ACDF Osteoarthritis, shoulder LT LOC Osteoporosis LS Pain and swelling of left lower extremity likely cellulitis Panic disorder with agoraphobia Recurrent bacterial cystitis Rheumatoid arthritis H/O Right flank pain Sciatica right Sepsis Shoulder impingement syndrome bilateral Sleep apnea CPAP not tolerated Spinal stenosis Worst at L2-3 Swelling lower extremities likely due to amlodipine Tobacco abuse Former smoker Urinary tract infection UTI (urinary tract infection) Surgical History Abnormal findings on esophagogastroduodenoscopy (EGD) 12/08/17 Gastroparesis. Dysphagia. Suspect esophageal dysmotility. H/O cervical discectomy (~11/02/20) History of colonoscopy per phone call from GI clinic colonoscopy due 12/31/2014. 02/10/17 adenomas. 3 year follow up. History of fusion of cervical spine [address] Kemp History of neck surgery 11/2020 Family History Father Anemia Rheumatoid arthritis Dementia Family history of arthritis Gout Essential hypertension Acute myocardial infarction Osteoarthritis Mother Chronic Kidney Disease Family history of arthritis Mother Family history of arthritis Essential hypertension Disorder of liver Migraine Other Bilateral shoulder pain Colon adenomas Foraminal stenosis of lumbar region Greater trochanteric bursitis of right hip Neck Pain Onychomycosis Orthopnea Sepsis Spinal stenosis Swelling Social History Smoking Status: Former smoker Alcohol Intake Frequency: does not drink Substance Use: former substance user and marijuana Exam Narrative Narrative: Narrative: Constitutional: Normally developed, obese, patient is ill-appearing initial blood pressure is mildly hypotensive in the 90s. No tachycardia Head: Normocephalic, atraumatic, Eyes: No Icterus, PERRLA EOMI, visual [place] intact ENT: Moist mucus membranes, Neck: Supple, Cardiac: Bradycardic heart sounds, palpable radial pulses, 2+ lower extremity edema Pulmonary: Normal respiratory effort. Coarse breath sounds diminished at the bases Gastrointestinal: Abdomen soft, non-distended, non-tender, Musculoskeletal: No gross deformities, patient has bilateral lower extremity edema he has venous stasis to left lower extremity he has significant erythema and induration to the left lower extremity consistent with cellulitis to his lower leg and then appears to have proximal lymphangitic streaking up his medial thigh but not all the way to the groin. No crepitus no necrosis. Skin: warm, dry Neuro: Arousable to voice, orientedx2-3, patient has generalized weakness, both legs unable to raise off bed against gravity, both arms he has no drift in his right upper extremity left upper extremity has mild drift does not hit bed. No [id number] ataxia, PERRLA, extraocular movements intact. Initially does appear to have some slight left lower facial droop and perhaps a bit of dysarthria no obvious aphasia. No extinction. Symmetric sensation. I calculate an initial NIH of 11 Course Vital Signs Vital signs: Vital Signs Temperature 37.2 C 10/18/22 13:42 Pulse Rate 61 10/18/22 13:42 Respiratory Rate 16 10/18/22 13:42 Blood Pressure 91/79 10/18/22 13:42 Pulse Oximetry (%) 97 10/18/22 13:42 Oxygen Delivery Method 10/18/22 13:42 Temperature 37.8 C H 10/18/22 14:01 Pulse Rate 98 H 10/18/22 16:46 Respiratory Rate 19 10/18/22 16:46 Blood Pressure 111/66 10/18/22 16:46 Pulse Oximetry (%) 95 10/18/22 16:46 Oxygen Delivery Method 10/18/22 14:45 MDM MDM Narrative Medical decision making narrative: Narrative: 62-year-old male who presents as above last known well was 10 PM last night primary issue is generalized weakness. However was initial concern for possible CVA as his weakness seemed mildly asymmetric more so on the left. Given the time sensitive nature we did proceed down initial code stroke protocol. Patient is well outside the tPA window but theoretically if he had an LVO he may potentially be a thrombectomy patient. However overall picture I suspect this is more likely encephalopathy secondary to non-neurologic cause such as sepsis or metabolic derangement etc. So simultaneously given the obvious cellulitis to his left lower extremity we did start him on septic work-up and management with broad-spectrum antibiotics vancomycin, Zosyn. Gave him 1 L of IV fluids as he is already very edematous, concern for volume overload. So did not receive 30 cc/kg. We we will obtain blood cultures, urine and chest x-ray as well as his stroke work-up. Did speak with stroke neurologist/telemetry neurologist who also agrees with this plan. Subsequently after patient was back from the scanner the family member showed up and was able to provide more thorough history as detailed in the HPI Reevaluation when he is back from the scanner he is receiving some IV fluids he already seems improved he is more alert and perked up, the initial left lower facial droop seems resolved. His presenting hypotension has now resolved. CBC does show leukocytosis of 20, no anemia, coags within normal CT head is negative for bleed or acute process, CT angio head and neck negative for acute thrombosis or other pathology per radiologist and telestroke neurologist. Once again spoke with telestroke neurologist. This is unlikely stroke, this is likely encephalopathy secondary to primary cause such as sepsis etc. Continue non- stroke management Blood gas shows normal pH 7.41 with mild lactic acidosis 2.6. PCO2 of 44, PO2 of 32 with a bicarb of 28 LFTs no significant abnormality nor bilirubin Chest x-ray no acute finding Electrolytes no significant abnormality trop neg [id number] urine small blood, negative for infection Twelve-lead EKG we have repeated twice, patient is tremulous/difficult to obtain however EKG at 1509 sinus tachycardic 97 SD QRS within normal QTC is calculated as prolonged 531 however I think a lot of this is artifact, when you look at the lead V4, V5, V6 with less artifact looks less like prolonged QT but will obtain mag level otherwise does have PVCs, ventricular trigeminy pattern no STEMI criteria 1545: Repeat exam patient feels much better he is now briskly alert and oriented, the slight facial droop has resolved, he no longer has any drift to his left upper extremity. Still weak bilaterally to his lower extremities but some movement against gravity on both sides. Repeat NIH is 4, simply with IV fluids and antibiotics. VSS, well perfused. will give 500cc further bolus. Will speak with hospitalist for sepsis/cellulitis. We will also obtain duplex ultrasound to evaluate for DVT in that left leg Hospitalist was agreeable to admitting, oxygen equipment technician reports no evidence of DVT or obvious soft tissue abscess on duplex ultrasound Critical Care Time Total CriticalCare time was at least 45 minutes, excluding separately reportable procedures. There was a high probability of clinically significant/life threatening deterioration in the patient's condition which required my urgent intervention. Lab Data Result diagrams: 10/18/22 14:06 Labs: Lab Results 10/18/22 10/18/22 10/18/22 Range/Units 14:04 14:06 14:06 WBC 20.0 H (4.5-11.0) K/mcL RBC 4.73 (4.63-6.08) M/mcL Hgb 14.0 (13.7-17.5) g/dL Hct 41.5 (40.1-51.0) % POC Hct (41-55) MCV 87.7 (80.0-100.0) fL MCH 29.6 (26.0-34.0) pg MCHC 33.7 (31.0-36.0) g/dL RDW 12.5 (11.5-14.5) % Plt Count 190 (140-440) K/mcL MPV 10.0 (8.8-12.5) fL Immature Gran % (Auto) 0.7 H (0.0-0.5) % Neut % (Auto) 93.1 H (38.0-78.0) % Lymph % (Auto) 1.9 L (15.5-49.0) % [place] % (Auto) 4.1 (1.0-12.0) % Eos % (Auto) 0 (0.0-7.0) % Baso % (Auto) 0.2 (0.0-2.0) % Lymph # (Auto) 0.38 L (1.50-4.80) K/mcL [place] # (Auto) 0.82 (0.10-0.90) K/mcL Eos # (Auto) 0 (0.00-0.70) K/mcL Baso # (Auto) 0.03 (0.00-0.30) K/mcL Immature Gran # 0.13 H (0.00-0.05) K/mcl Absolute Neutrophils 18.62 H (1.80-8.00) K/mcL POC PT 14.4 (11.9-14.5) POC INR 1.2 (0.8-1.2) APTT 35.9 (20.0-37.0) sec POC VBG pH (7.32-7.42) POC VBG pCO2 at Temp (41-51) POC VBG pO2 (25-40) POC VBG HCO3 (24-28) POC VBG Total CO2 (25-29) POC Venous O2 Sat (40-70) POC VBG Base Excess (-2-2) VBG Lactic Acid (0.5-2) POC Sodium (133-145) POC Potassium (3.3-5.1) POC Chloride (96-108) POC Total CO2 (22-30) POC BUN (6-20) POC Creatinine (0.6-1.2) POC Glucose (70-105) POC WB Ioniz Calcium (1.16-1.32) Magnesium (1.6-2.5) mg/dL Total Bilirubin (0.1-1.0) mg/dL Direct Bilirubin (<0.3) mg/dL AST (<40) U/L ALT (<40) U/L Alkaline Phosphatase (39-117) U/L Total Protein (5.9-8.4) gm/dL Albumin (3.2-5.2) gm/dL Globulin (2.2-3.7) gm/dL Urine Color Urine Appearance (Clear) Urine pH (5.0-9.0) Ur Specific [place] (1.000-1.035) Urine Protein (Negative) mg/dL Urine Glucose (UA) (Negative) mg/dL Urine Ketones (Negative) mg/dL Urine Occult Blood (Negative) zack/mcL Urine Nitrate (Negative) Urine Bilirubin (Negative) mg/dL Urine Urobilinogen mg/dL Ur Leukocyte Esterase (Negative) /uL Urine RBC (0-3) /hpf Urine WBC (0-4) /hpf Ur Squamous Epith Cells (0-4) /hpf Urine Bacteria (0) /hpf Hyaline Casts (0-2) /lph Broad Casts (0-0) /lph Urine Mucus (None) /hpf Ur Culture Indicated? POC Troponin I (0.00-0.08) 10/18/22 10/18/22 10/18/22 Range/Units 14:06 14:07 15:00 WBC (4.5-11.0) K/mcL RBC (4.63-6.08) M/mcL Hgb (13.7-17.5) g/dL Hct (40.1-51.0) % POC Hct (41-55) MCV (80.0-100.0) fL MCH (26.0-34.0) pg MCHC (31.0-36.0) g/dL RDW (11.5-14.5) % Plt Count (140-440) K/mcL MPV (8.8-12.5) fL Immature Gran % (Auto) (0.0-0.5) % Neut % (Auto) (38.0-78.0) % Lymph % (Auto) (15.5-49.0) % [place] % (Auto) (1.0-12.0) % Eos % (Auto) (0.0-7.0) % Baso % (Auto) (0.0-2.0) % Lymph # (Auto) (1.50-4.80) K/mcL [place] # (Auto) (0.10-0.90) K/mcL Eos # (Auto) (0.00-0.70) K/mcL Baso # (Auto) (0.00-0.30) K/mcL Immature Gran # (0.00-0.05) K/mcl Absolute Neutrophils (1.80-8.00) K/mcL POC PT (11.9-14.5) POC INR (0.8-1.2) APTT (20.0-37.0) sec POC VBG pH 7.41 (7.32-7.42) POC VBG pCO2 at Temp 44.0 (41-51) POC VBG pO2 32 (25-40) POC VBG HCO3 28.2 H (24-28) POC VBG Total CO2 29.0 (25-29) POC Venous O2 Sat 62.0 (40-70) POC VBG Base Excess 4.0 H* (-2-2) VBG Lactic Acid 2.6 H (0.5-2) POC Sodium (133-145) POC Potassium (3.3-5.1) POC Chloride (96-108) POC Total CO2 (22-30) POC BUN (6-20) POC Creatinine (0.6-1.2) POC Glucose (70-105) POC WB Ioniz Calcium (1.16-1.32) Magnesium (1.6-2.5) mg/dL Total Bilirubin 0.6 (0.1-1.0) mg/dL Direct Bilirubin 0.2 (<0.3) mg/dL AST 52 H (<40) U/L ALT 15 (<40) U/L Alkaline Phosphatase 75 (39-117) U/L Total Protein 7.1 (5.9-8.4) gm/dL Albumin 3.9 (3.2-5.2) gm/dL Globulin 3.2 (2.2-3.7) gm/dL Urine Color Yellow Urine Appearance Clear (Clear) Urine pH 6.0 (5.0-9.0) Ur Specific [place] 1.015 (1.000-1.035) Urine Protein Trace A (Negative) mg/dL Urine Glucose (UA) Negative (Negative) mg/dL Urine Ketones Negative (Negative) mg/dL Urine Occult Blood Small A (Negative) zack/mcL Urine Nitrate Negative (Negative) Urine Bilirubin Negative (Negative) mg/dL Urine Urobilinogen Normal mg/dL Ur Leukocyte Esterase Negative (Negative) /uL Urine RBC 1 (0-3) /hpf Urine WBC 3 (0-4) /hpf Ur Squamous Epith Cells 1 (0-4) /hpf Urine Bacteria None (0) /hpf Hyaline Casts 1 (0-2) /lph Broad Casts 1 H (0-0) /lph Urine Mucus Few A (None) /hpf Ur Culture Indicated? No POC Troponin I (0.00-0.08) 10/18/22 10/18/22 10/18/22 Range/Units 15:18 15:20 16:05 WBC (4.5-11.0) K/mcL RBC (4.63-6.08) M/mcL Hgb (13.7-17.5) g/dL Hct (40.1-51.0) % POC Hct 38.0 L (41-55) MCV (80.0-100.0) fL MCH (26.0-34.0) pg MCHC (31.0-36.0) g/dL RDW (11.5-14.5) % Plt Count (140-440) K/mcL MPV (8.8-12.5) fL Immature Gran % (Auto) (0.0-0.5) % Neut % (Auto) (38.0-78.0) % Lymph % (Auto) (15.5-49.0) % [place] % (Auto) (1.0-12.0) % Eos % (Auto) (0.0-7.0) % Baso % (Auto) (0.0-2.0) % Lymph # (Auto) (1.50-4.80) K/mcL [place] # (Auto) (0.10-0.90) K/mcL Eos # (Auto) (0.00-0.70) K/mcL Baso # (Auto) (0.00-0.30) K/mcL Immature Gran # (0.00-0.05) K/mcl Absolute Neutrophils (1.80-8.00) K/mcL POC PT (11.9-14.5) POC INR (0.8-1.2) APTT (20.0-37.0) sec POC VBG pH (7.32-7.42) POC VBG pCO2 at Temp (41-51) POC VBG pO2 (25-40) POC VBG HCO3 (24-28) POC VBG Total CO2 (25-29) POC Venous O2 Sat (40-70) POC VBG Base Excess (-2-2) VBG Lactic Acid (0.5-2) POC Sodium 137 (133-145) POC Potassium 4.0 (3.3-5.1) POC Chloride 99 (96-108) POC Total CO2 27.0 (22-30) POC BUN 16 (6-20) POC Creatinine 0.9 (0.6-1.2) POC Glucose 131 H (70-105) POC WB Ioniz Calcium 1.17 (1.16-1.32) Magnesium 1.6 (1.6-2.5) mg/dL Total Bilirubin (0.1-1.0) mg/dL Direct Bilirubin (<0.3) mg/dL AST (<40) U/L ALT (<40) U/L Alkaline Phosphatase (39-117) U/L Total Protein (5.9-8.4) gm/dL Albumin (3.2-5.2) gm/dL Globulin (2.2-3.7) gm/dL Urine Color Urine Appearance (Clear) Urine pH (5.0-9.0) Ur Specific [place] (1.000-1.035) Urine Protein (Negative) mg/dL Urine Glucose (UA) (Negative) mg/dL Urine Ketones (Negative) mg/dL Urine Occult Blood (Negative) zack/mcL Urine Nitrate (Negative) Urine Bilirubin (Negative) mg/dL Urine Urobilinogen mg/dL Ur Leukocyte Esterase (Negative) /uL Urine RBC (0-3) /hpf Urine WBC (0-4) /hpf Ur Squamous Epith Cells (0-4) /hpf Urine Bacteria (0) /hpf Hyaline Casts (0-2) /lph Broad Casts (0-0) /lph Urine Mucus (None) /hpf Ur Culture Indicated? POC Troponin I < 0.02 (0.00-0.08) Discharge Plan Patient/Caregiver Discharge Instructions Pt seen by [employer] INSTALLER/PA only: No Clinical Impression: Sepsis, Cellulitis of left leg, Encephalopathy acute Patient Disposition: Xfer Acute Care Hospital Condition: Serious Follow up with: Jordon Clark DO [Primary Care Provider] - Prescriptions: No Action atorvastatin 20 mg tablet 20 mg PO QPM Qty: 90 3RF (DME) nebulizer accessories Kit See Rx Instructions .ROUTE .MEDSUPPLY Qty: 1 0RF Rx Instructions: Use daily as needed ipratropium-albuterol 0.5 mg-3 mg(2.5 mg base)/3 mL solution for nebulization 3 ml INHALATION Q6H PRN (Reason: shortness of breath or wheezing) Qty: 180 3RF (DME) Compression stockings 20 mmHg Qty: 2 0RF Rx Instructions: 20 mmHg compression hose, appropriate size for patient hydralazine 25 mg tablet 25 mg PO BID Qty: 180 3RF albuterol sulfate 90 mcg/actuation HFA aerosol inhaler 2 puff inhalation Q4-6HP PRN (Reason: Wheezing) Qty: 8.5 5RF (DME) Diabetic shoes See Rx Instructions .Route .MEDSUPPLY Qty: 1 0RF Rx Instructions: As directed, order to [facility] tamsulosin 0.4 mg capsule 0.8 mg PO QDAY Qty: 60 11RF metformin 500 mg tablet extended release 24 hr 1,000 mg PO QAM Qty: 180 3RF diclofenac sodium 75 mg tablet,delayed release (DR/EC) 75 mg PO BID Qty: 180 1RF oxycodone-acetaminophen 7.5-325 mg tablet 1 tab PO Q4H PRN (Reason: pain) Qty: 168 0RF gabapentin 300 mg capsule 600 mg PO TID Qty: 180 5RF isosorbide mononitrate 60 mg tablet extended release 24 hr 60 mg PO BID Label Comments: stated takes two tabs in Am, unsure if the dose is 30 =60mg or 60= 120mg Rx Instructions: swallow whole with glass of water; do not crush/chew/dissolve/cut/break potassium chloride 20 mEq tablet,ER particles/crystals 20 meq PO QDAY Label Comments: with food naloxone 4 mg/actuation spray,non-aerosol 1 spray INTRANASAL Q2-3M PRN (Reason: opioid overdose) Qty: 2 1RF Rx Instructions: 1 dose into ONE nostril; alternate nostrils w each dose until assistance arrives (DME) nebulizer machine Qty: 1 0RF Rx Instructions: As directed amlodipine 10 mg tablet 10 mg PO QDAY nitroglycerin 0.4 mg tablet, sublingual 0.4 mg sublingual Q5M PRN (Reason: Chest Pain) Qty: 7 1RF losartan 100 mg tablet 100 mg PO QDAY ipratropium bromide 0.02 % solution 0.5 mg inhalation Q6H PRN (Reason: shortness of breath or wheezing) Qty: 75 0RF aspirin 81 MG tablet,delayed release (DR/EC) 81 mg PO DAILY metoprolol tartrate 50 mg tablet 50 mg PO BID famotidine 40 mg Tablet 40 mg PO QDAY furosemide 20 mg tablet 20 mg PO QDAY
--- NOTE | 2022-10-18 15:00 | Cat Scan Report ---
CLINICAL INFORMATION: Code stroke COMPARISON: None. TECHNIQUE: 80 cc of Isovue-370 were injected intravenously , and using SmartPrep to maximize cerebral arterial opacification, 0.625 mm helical slices were obtained from the skull base through the cerebral vertex. Following reconstruction , sagittal, coronal and axial reformatted images were processed and reviewed at multiple windows and levels. 3D volume rendered and MIP images were acquired at a independent workstation. The exam was performed using radiation dose optimization techniques including, but not limited to, automated exposure control, adjustment of the mA and/or kV according to patient size and use of iterative reconstruction technique. FINDINGS: The intracranial internal carotid, vertebral, basilar, anterior, middle and posterior cerebral arteries and their branches are well-opacified and normal in contour and caliber without significant stenosis, occlusion or other pathology. Superficial/deep cerebral veins and deep venous sinuses are widely patent IMPRESSION: Normal exam Interpreted and Authenticated by: Jordon Liz 10/18/22
[2022-10-18 15:07] LABS: ALT/SGPT 15 U/L (<40); AST/SGOT 52 U/L (<40); Albumin 3.9 gm/dL (3.2-5.2); Alkaline Phosphatase 75 U/L (39-117); Bilirubin,Direct 0.2 mg/dL (<0.3); Bilirubin,Total 0.6 mg/dL (0.1-1.0); Globulin 3.2 gm/dL (2.2-3.7)
[2022-10-18 15:22] LABS: POC Calcium, Ionized 1.17 (1.16-1.32); POC Creatinine 0.9 (0.6-1.2)
[2022-10-18 15:48] LABS: Appearance,Urine CLEAR (Clear); Bilirubin,Urine NEGATIVE (Negative); Color,Urine YELLOW; Culture Indicated,Urine No; Glucose,Urine (UA) NEGATIVE (Negative); Ketones,Urine NEGATIVE (Negative); Leukocyte Esterase,Urine NEGATIVE /uL (Negative); Mucus,Urine FEW /hpf; Nitrate,Urine NEGATIVE (Negative); Protein,Urine TRACE mg/dL (Negative); Specific Gravity,Urine 1.015 (1.000-1.035); Urine Blood SMALL ery/mcL (Negative); Urine Broad Cast 1 /lph (0-0); Urine Hyaline Cast 1 /lph (0-2); Urine RBC 1 /hpf (0-3); Urine Squamous Epithelial Cell 1 /hpf (0-4); Urine WBC 3 /hpf (0-4); Urobilinogen,Urine Normal
[2022-10-18] MEDS ORDERED: 0.9 % SODIUM CHLORIDE 500 ML IV ONE (15:58)
--- NOTE | 2022-10-18 17:27 | Internal Med History&Physical ---
HPI History of Present Illness Patient information: Note initiated : 10/18/22 at 5:23 pm Service Date, if different from initiated Date: [] Patient: Clifford Herbert 62 y/o M admitted on for weakness. Chief Complaint: [] History of present illness: Mr. Herbert is a 62 year old male with multiple comorbidities who presented to the emergency department for concern of a stroke. In the emergency department, the patient underwent an initial stroke work-up with noncontrast CT head, CTA head and neck which was unremarkable. The patient was found to be septic secondary to left lower extremity cellulitis. He was started on IV fluid and IV antibiotics, hospital medicine was consulted for admission. Review of systems: Unable to obtain due to altered mental status Physical exam Head: Atraumatic, normal inspection. Eyes: normal appearance, no scleral icterus. Neck: full ROM Respiratory: no respiratory distress. Cardiovascular: normal rate and rhythm, S1, S2. GI/Abdominal: soft, nontender, no guarding. Extremities: Left lower extremity wound, healing wound on plantar aspect of left foot, bilateral lower extremity pitting edema. Neurological: CN II-XII intact, intact motor, intact sensation. Psychiatric: Impaired cognition Skin: Warmth, redness, tenderness in left lower extremity extending from wound, down to foot and up to groin. PFSH PFSH All Active Problems (Updated 10/18/22 @ 15:36 by Luisito Aguirre DO) Sepsis (Acute) Cellulitis of left leg (Acute) Encephalopathy acute (Acute) Ulcer of left fifth toe due to diabetes mellitus (Acute) Anxiety disorder (Chronic) COPD (chronic obstructive pulmonary disease) (Chronic) CAD (coronary artery disease) (Chronic) Depressive disorder (Chronic) Diabetes mellitus, type II (Chronic) Fatigue (Chronic) Gastroesophageal reflux (Chronic) Heartburn (Chronic) Hyperlipidemia (Chronic) Hypertension, essential (Chronic) Insomnia (Chronic) Joint pain (Chronic) Low back pain (Chronic) Muscle ache (Chronic) Obesity (Chronic) Osteoarthritis (Chronic) Osteoarthritis, shoulder (Chronic) Osteoporosis (Chronic) Rheumatoid arthritis (Chronic) Sciatica (Chronic) Shoulder impingement syndrome (Chronic) Sleep apnea (Chronic) History of colonoscopy (Chronic) Intentional weight loss (Chronic) Orthopnea (Chronic) Swelling (Chronic) Neck Pain (Chronic) Bilateral shoulder pain (Chronic) Colon adenomas (Chronic) Spinal stenosis (Chronic) Foraminal stenosis of lumbar region (Chronic) Gastroparesis (Chronic) Metabolic syndrome (Chronic) Joint pain (Chronic) Recurrent bacterial cystitis (Acute) Morbid obesity with BMI of 40.0-44.9, adult (Chronic) Major depressive disorder, recurrent severe without psychotic features (Chronic) 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) Pain and swelling of left lower extremity (Acute) Chronic use of opiate for therapeutic purpose (Chronic) Acute exacerbation of chronic obstructive airways disease (Acute) Respiratory distress (Acute) Dental infection (Acute) Contusion of hand (Acute) Abrasion of multiple sites of left upper arm (Acute) Neck injury (Acute) Cervical disc disorder with radiculopathy (Acute) Hx of fusion of cervical spine (Acute) Lower urinary tract symptoms (LUTS) (Acute) Prostate cancer screening (Acute) H/O cervical spine surgery (Acute) H/O cervical discectomy (Chronic ~11/02/20) Cellulitis (Acute) Bilateral lower extremity edema (Acute) Acute dyspnea (Acute) Ulcer of left heel (Acute) Cervical disc disease (Chronic) BPH loc w urin obs/LUTS (Acute) Fall (Acute) Generalized weakness (Acute) Multiple falls (Acute) COVID-19 virus infection (Acute) Obesity with alveolar hypoventilation and body mass index (BMI) of 40 or greater (Acute) Cough (Acute) Pharyngitis (Acute) Elevated PSA, less than 10 ng/ml (Acute) Medical History Anxiety disorder Bilateral shoulder pain CAD (coronary artery disease) 1998 chronically occluded RCA. No anginal symptoms currently. Medically optimized. Follows with cardiology. Cellulitis of left lower extremity Responded to Bactrim, after failing Keflex Chest pain Pain at rest. Nitro improved pain. Chronic use of opiate for therapeutic purpose Colon adenomas 02/10/17-3 year follow-up COPD (chronic obstructive pulmonary disease) Mild without hypoxia Uses duo nebs as needed Cystitis Dental abscess Dental infection Depressive disorder Diabetes mellitus, type II Since 02/14/2015 Well-controlled on metformin ER 1000 mg daily. Diabetic foot exam today. No numbness, but does have a lot of callus. Palpable pulses. He follows with podiatry about every 2 months. Weight loss, exercise, and diabetic diet recommended. Diabetic eye exam up-to-date Fatigue Foraminal stenosis of lumbar region Worst at L4-S1 Gastroesophageal reflux Gastroparesis On EGD 12/08/17 Greater trochanteric bursitis of right hip Heartburn Hyperlipidemia Hypertension, essential Typically well controlled on hydralazine 25 mg twice daily, isosorbide 60 mg twice daily, metoprolol tartrate 100 mg daily, losartan 100 mg daily, hydrochlorothiazide 25 mg daily, and amlodipine 10 mg daily A little bit low today. He has been monitoring blood pressure at home, but forgot to bring his logs in Insomnia Intentional weight loss 31 pounds since August Joint pain Joint pain Leukocytosis Low back pain Mild pain radiating to limbs, but pain is mostly in the back. Major depressive disorder, recurrent severe without psychotic features Metabolic syndrome Morbid obesity with BMI of 40.0-44.9, adult Muscle ache Myocardial infarction acute 1998 Neck injury Neck Pain Prior fusion Obesity Onychomycosis nails are cut very short Orthopnea Osteoarthritis Osteoarthritis cervical spine 1991 ACDF Osteoarthritis, shoulder LT LOC Osteoporosis LS Pain and swelling of left lower extremity likely cellulitis Panic disorder with agoraphobia Recurrent bacterial cystitis Rheumatoid arthritis H/O Right flank pain Sciatica right Sepsis Shoulder impingement syndrome bilateral Sleep apnea CPAP not tolerated Spinal stenosis Worst at L2-3 Swelling lower extremities likely due to amlodipine Tobacco abuse Former smoker Urinary tract infection UTI (urinary tract infection) Surgical History Abnormal findings on esophagogastroduodenoscopy (EGD) 12/08/17 Gastroparesis. Dysphagia. Suspect esophageal dysmotility. H/O cervical discectomy (~11/02/20) History of colonoscopy per phone call from GI clinic colonoscopy due 12/31/2014. 02/10/17 adenomas. 3 year follow up. History of fusion of cervical spine [address] Kemp History of neck surgery 11/2020 Family History Father Anemia Rheumatoid arthritis Dementia Family history of arthritis Gout Essential hypertension Acute myocardial infarction Osteoarthritis Mother Chronic Kidney Disease Family history of arthritis Mother Family history of arthritis Essential hypertension Disorder of liver Migraine Other Bilateral shoulder pain Colon adenomas Foraminal stenosis of lumbar region Greater trochanteric bursitis of right hip Neck Pain Onychomycosis Orthopnea Sepsis Spinal stenosis Swelling Social History household members: spouse housing: house lives independently: Yes marital status: education level: high school service: Yes occupational status: disabled smoking status: Former smoker alcohol intake frequency: does not drink substance use type: former substance user and marijuana MEDS/ALLERGIES Home Medications and Allergies Home Medications Medication Instructions Recorded Confirmed Type isosorbide mononitrate 60 mg 60 mg PO BID 07/13/15 10/18/22 History tablet,extended release 24 hr potassium chloride 20 mEq 20 meq PO QDAY 07/13/15 10/18/22 History tablet,extended release(part/cryst) atorvastatin 20 mg tablet 20 mg PO QPM #90 tabs 05/24/18 10/18/22 Rx aspirin 81 mg tablet,delayed 81 mg PO DAILY 01/18/19 09/01/22 History release naloxone 4 mg/actuation nasal spray 1 spray intranasal Q2-3M PRN 07/06/19 09/01/22 Rx opioid overdose #2 ea nebulizer machine #1 ea 11/24/19 09/01/22 Rx nebulizer accessories #1 ea 02/02/20 09/01/22 Rx ipratropium 0.5 mg-albuterol 3 mg 3 ml inhalation Q6H PRN shortness 10/23/20 09/01/22 Rx (2.5 mg base)/3 mL nebulization of breath or wheezing #180 mL soln Compression stockings #2 ea 12/31/20 09/01/22 Rx amlodipine 10 mg tablet 10 mg PO QDAY 01/08/22 10/18/22 History hydralazine 25 mg tablet 25 mg PO BID #180 tabs 01/08/22 10/18/22 Rx losartan 100 mg tablet 100 mg PO QDAY 01/08/22 10/18/22 History nitroglycerin 0.4 mg sublingual 0.4 mg sublingual Q5M PRN Chest 01/08/22 09/01/22 Rx tablet Pain #7 tabs ipratropium bromide 0.02 % 0.5 mg (2.5 mL) inhalation Q6H PRN 02/18/22 09/01/22 Rx solution for inhalation shortness of breath or wheezing #75 mL furosemide 20 mg tablet 20 mg PO QDAY 04/17/22 09/01/22 History albuterol sulfate 90 mcg/actuation 2 puff inhalation Q4-6HP PRN 05/28/22 10/18/22 Rx aerosol inhaler Wheezing #8.5 grams Diabetic shoes #1 ea 08/07/22 09/01/22 Rx tamsulosin 0.4 mg capsule 0.8 mg PO QDAY BPH #60 caps 08/26/22 10/18/22 Rx metformin 500 mg tablet,extended 1,000 mg PO QAM #180 tabs 09/17/22 10/18/22 Rx release 24 hr diclofenac sodium 75 mg 75 mg PO BID #180 tabs 09/23/22 Rx tablet,delayed release oxycodone-acetaminophen 7.5 mg-325 1 tab PO Q4H PRN pain #168 tabs 10/07/22 10/18/22 Rx mg tablet gabapentin 300 mg capsule 600 mg PO TID #180 caps 10/14/22 10/18/22 Rx famotidine 40 mg tablet 40 mg PO QDAY 10/18/22 10/18/22 History metoprolol tartrate 50 mg tablet 50 mg PO BID 10/18/22 10/18/22 History Allergies Allergy/AdvReac Type Severity Reaction Status Date / Time codeine Allergy Intermediate Rash Verified 09/01/22 09:24 latex Allergy Intermediate Unknown Verified 09/01/22 09:24 morphine Allergy Intermediate Rash Verified 09/01/22 09:24 EXAM Constitutional Vitals: Temp Pulse Resp BP Pulse Ox O2 Del Method 100.0 F H 103 H 19 129/70 98 10/18/22 14:01 10/18/22 17:16 10/18/22 17:16 10/18/22 17:16 10/18/22 17:16 10/18/22 14:45 DATA Data Completed and Pending Labs: Labs from last 24 hours 10/18/22 10/18/22 10/18/22 16:05 15:20 15:18 WBC RBC Hgb Hct POC Hct 38.0 L MCV MCH MCHC RDW Plt Count MPV Immature Gran % (Auto) Neut % (Auto) Lymph % (Auto) [place] % (Auto) Eos % (Auto) Baso % (Auto) Lymph # (Auto) [place] # (Auto) Eos # (Auto) Baso # (Auto) Immature Gran # Absolute Neutrophils POC PT POC INR APTT POC VBG pH POC VBG pCO2 at Temp POC VBG pO2 POC VBG HCO3 POC VBG Total CO2 POC Venous O2 Sat POC VBG Base Excess VBG Lactic Acid POC Sodium 137 POC Potassium 4.0 POC Chloride 99 POC Total CO2 27.0 POC BUN 16 POC Creatinine 0.9 POC Glucose 131 H POC WB Ioniz Calcium 1.17 Magnesium 1.6 Total Bilirubin Direct Bilirubin AST ALT Alkaline Phosphatase Total Protein Albumin Globulin Urine Color Urine Appearance Urine pH Ur Specific [place] Urine Protein Urine Glucose (UA) Urine Ketones Urine Occult Blood Urine Nitrate Urine Bilirubin Urine Urobilinogen Ur Leukocyte Esterase Urine RBC Urine WBC Ur Squamous Epith Cells Urine Bacteria Hyaline Casts Broad Casts Urine Mucus Ur Culture Indicated? POC Troponin I < 0.02 10/18/22 10/18/22 10/18/22 15:00 14:07 14:06 WBC RBC Hgb Hct POC Hct MCV MCH MCHC RDW Plt Count MPV Immature Gran % (Auto) Neut % (Auto) Lymph % (Auto) [place] % (Auto) Eos % (Auto) Baso % (Auto) Lymph # (Auto) [place] # (Auto) Eos # (Auto) Baso # (Auto) Immature Gran # Absolute Neutrophils POC PT POC INR APTT POC VBG pH 7.41 POC VBG pCO2 at Temp 44.0 POC VBG pO2 32 POC VBG HCO3 28.2 H POC VBG Total CO2 29.0 POC Venous O2 Sat 62.0 POC VBG Base Excess 4.0 H* VBG Lactic Acid 2.6 H POC Sodium POC Potassium POC Chloride POC Total CO2 POC BUN POC Creatinine POC Glucose POC WB Ioniz Calcium Magnesium Total Bilirubin 0.6 Direct Bilirubin 0.2 AST 52 H ALT 15 Alkaline Phosphatase 75 Total Protein 7.1 Albumin 3.9 Globulin 3.2 Urine Color Yellow Urine Appearance Clear Urine pH 6.0 Ur Specific [place] 1.015 Urine Protein Trace A Urine Glucose (UA) Negative Urine Ketones Negative Urine Occult Blood Small A Urine Nitrate Negative Urine Bilirubin Negative Urine Urobilinogen Normal Ur Leukocyte Esterase Negative Urine RBC 1 Urine WBC 3 Ur Squamous Epith Cells 1 Urine Bacteria None Hyaline Casts 1 Broad Casts 1 H Urine Mucus Few A Ur Culture Indicated? No POC Troponin I 10/18/22 10/18/22 10/18/22 14:06 14:06 14:04 WBC 20.0 H RBC 4.73 Hgb 14.0 Hct 41.5 POC Hct MCV 87.7 MCH 29.6 MCHC 33.7 RDW 12.5 Plt Count 190 MPV 10.0 Immature Gran % (Auto) 0.7 H Neut % (Auto) 93.1 H Lymph % (Auto) 1.9 L [place] % (Auto) 4.1 Eos % (Auto) 0 Baso % (Auto) 0.2 Lymph # (Auto) 0.38 L [place] # (Auto) 0.82 Eos # (Auto) 0 Baso # (Auto) 0.03 Immature Gran # 0.13 H Absolute Neutrophils 18.62 H POC PT 14.4 POC INR 1.2 APTT 35.9 POC VBG pH POC VBG pCO2 at Temp POC VBG pO2 POC VBG HCO3 POC VBG Total CO2 POC Venous O2 Sat POC VBG Base Excess VBG Lactic Acid POC Sodium POC Potassium POC Chloride POC Total CO2 POC BUN POC Creatinine POC Glucose POC WB Ioniz Calcium Magnesium Total Bilirubin Direct Bilirubin AST ALT Alkaline Phosphatase Total Protein Albumin Globulin Urine Color Urine Appearance Urine pH Ur Specific [place] Urine Protein Urine Glucose (UA) Urine Ketones Urine Occult Blood Urine Nitrate Urine Bilirubin Urine Urobilinogen Ur Leukocyte Esterase Urine RBC Urine WBC Ur Squamous Epith Cells Urine Bacteria Hyaline Casts Broad Casts Urine Mucus Ur Culture Indicated? POC Troponin I A/P Narrative A/P Narrative: Assessment:62-year-old male with multiple comorbidities admitted for sepsis secondary to left lower extremity cellulitis. Patient has a left lower extremity wound secondary to venous stasis dermatitis which is the reason for cellulitis. #Sepsis secondary to left lower extremity cellulitis #Left lower extremity wounds secondary to venous stasis #Multiple risk factors for MRSA #Volume overload, suspect due to heart failure #Encephalopathy secondary to sepsis #Type 2 diabetes mellitus #Coronary artery disease, stable #Hypertension #Hyperlipidemia #Chronic back pain on long-term opioid #Obstructive sleep apnea not on CPAP #Obesity with BMI 40 Plan -Vancomycin IV and ceftriaxone for now. -Received IV fluids in the ED, monitor volume status. -Repeat lactic acid until downtrending. -Follow blood cultures x2. -MRSA nasal PCR. -Follow CBC and IPP. -Check hemoglobin A1c. -Check BNP, urine protein creatinine ratio. -Follow-up left lower extremity venous duplex. -Humalog SSIlow dose. -Analgesics as needed. -The patient will require diuresis after sepsis physiology resolves. -Home medication reconciliation, continue important meds. -Consistent carbohydrate diet. -PT and OT consult. -bus driver/monitor. -Consider TTE. -DVT prophylaxis: Lovenox -CODE STATUS: Full -Disposition: Home when stable. Consider SGLT2 inhibitor if it is covered by insurance. Time Spent With Patient Time: Total time spent is greater than 50% in coordination of care (as documented) at patient's floor/unit and/or counseling patient:
[2022-10-18] MEDS ORDERED: DEXTROSE 50% 50 ML VIAL IV PRN (17:43)
[2022-10-18] MEDS ORDERED: ONDANSETRON 4 MG/2 ML VIAL IV PRN (17:43)
[2022-10-18] MEDS ORDERED: NON FORMULARY MEDICATION 1 DOSE MISCELL (Oxycodone-Acetaminophen 7.5-325 mg tablet) PO PRN (17:43)
[2022-10-18] MEDS ORDERED: NITROGLYCERIN 0.4 MG TAB.SUBL SL PRN (17:43)
[2022-10-18] MEDS ORDERED: LACTULOSE 20 GM/30 ML ORAL.SOL PO PRN (17:43)
[2022-10-18] MEDS ORDERED: IPRATROPIUM/ALBUTEROL 3 ML AMPUL.NEB NEB PRN (17:43)
[2022-10-18] MEDS ORDERED: ACETAMINOPHEN 325 MG TABLET PO PRN (17:43)
[2022-10-18] MEDS ORDERED: DEXTROSE 31 GM ORAL.SUSP PO PRN (17:43)
[2022-10-18] MEDS ORDERED: SENNOSIDES 1 TABLET PO PRN (17:43)
[2022-10-18] MEDS ORDERED: VANCOMYCIN PER PHARMACY IV SCH (17:43)
[2022-10-18 18:20] LABS: Hemoglobin A1C 5.3 % Hgb (4.0-6.0)
[2022-10-18 18:24] LABS: Creatinine, Spot Urine 157.4 mg/dL (39.0-259.0); Pro:Crea Ratio 0.18 (<0.20)
[2022-10-18] MEDS ORDERED: KETOROLAC 15 MG/ML VIAL IV PRN (18:27)
[2022-10-18] MEDS ORDERED: VANCOMYCIN 500 MG in 0.9 % SODIUM CHLORIDE 100 ML IV ONE (18:30)
[2022-10-18] MEDS: cefTRIAXone 2 GM in DEXTROSE 5% IN WATER 50 ML IV SCH (19:35)
[2022-10-18] MEDS ORDERED: cefTRIAXone 2 GM VIAL ONE (19:42)
[2022-10-18] MEDS: HYDROCODONE/APAP 7.5/325MG TABLET PO PRN (19:53)
[2022-10-18] MEDS: INSULIN LISPRO 1 UNIT/0.01 ML UNIT SQ SCH (20:52)
[2022-10-18] MEDS: GABAPENTIN 300 MG CAPSULE PO SCH (21:12)
[2022-10-18] MEDS: hydrALAZINE 25 MG TABLET PO SCH (21:12)
[2022-10-18] MEDS: ATORVASTATIN 20 MG TABLET PO SCH (21:12)
[2022-10-18] MEDS: ISOSORBIDE MONONITRATE 60 MG TAB.XL.24H PO SCH (21:12)
[2022-10-18] MEDS: 0.9 % SODIUM CHLORIDE 10 ML SYRINGE IV SCH (21:12)
[2022-10-18] MEDS: DOCUSATE SODIUM 100 MG CAPSULE PO SCH (21:12)
[2022-10-18] MEDS: METOPROLOL TARTRATE 50 MG TABLET PO SCH (21:12)
[2022-10-19] MEDS: VANCOMYCIN 1,500 MG in 0.9 % SODIUM CHLORIDE 500 ML IV SCH ×3 (02:34→20:56)
--- NOTE | 2022-10-19 04:51 | Ultrasound Report ---
CLINICAL INFORMATION: Left lower extremity edema and pain COMPARISON: None. FINDINGS: The common femoral, superficial femoral, and popliteal veins are easily compressible and show normal venous blood flow on color and spectral Doppler. The paired calf veins, lesser saphenous and greater saphenous veins could not be visualized due to edema. IMPRESSION: No evidence of deep vein thrombosis in the thigh region. The calf veins were not visualized Interpreted and Authenticated by: Jordon Liz 10/19/22
[2022-10-19] MEDS: 0.9 % SODIUM CHLORIDE 10 ML SYRINGE IV SCH ×3 (06:03→20:56)
[2022-10-19 06:40] LABS: Basophils # (Auto) 0.04 K/mcL (0.00-0.30); Basophils % (Auto) 0.3 % (0.0-2.0); Eosinophils # (Auto) 0.01 K/mcL (0.00-0.70); Eosinophils % (Auto) 0.1 % (0.0-7.0); Hematocrit 38.2 % (40.1-51.0); Hemoglobin 12.9 g/dL (13.7-17.5); Lymphocytes % (Auto) 6.5 % (15.5-49.0); Mean Cell Volume 90.5 fL (80.0-100.0); Mean Corpuscular HGB Conc 33.8 g/dL (31.0-36.0); Mean Platelet Volume 10.1 fL (8.8-12.5); Monocytes # (Auto) 1.13 K/mcL (0.10-0.90); Monocytes % (Auto) 7.3 % (1.0-12.0); Platelet Count 178 K/mcL (140-440); RBC 4.22 M/mcL (4.63-6.08); Red Cell Distribution Width 12.9 % (11.5-14.5); WBC 15.5 K/mcL (4.5-11.0)
[2022-10-19 06:51] LABS: ALT/SGPT 17 U/L (<40); AST/SGOT 61 U/L (<40); Albumin 3.2 gm/dL (3.2-5.2); Albumin/Globulin Ratio 1.2 (1.0-2.3); Alkaline Phosphatase 64 U/L (39-117); Bilirubin,Direct < 0.2 mg/dL (0-0.3); Bilirubin,Total 0.5 mg/dL (0.1-1.0); Blood Urea Nitrogen 15 mg/dL (8-23); Calcium 8.5 mg/dL (8.6-10.4); Carbon Dioxide 23 mmol/L (22-30); Chloride 102 mmol/L (96-108); Globulin 2.7 gm/dL (2.2-3.7); Glomerular Filtration Rate 91; Glucose 117 mg/dL (70-105); Lactate Dehydrogenase 187 U/L (135-225); Phosphorous 2.7 mg/dL (2.5-4.5); Triglycerides 82 mg/dL (<150); Uric Acid 5.5 mg/dL (2.5-8.0)
[2022-10-19] MEDS: INSULIN LISPRO 1 UNIT/0.01 ML UNIT SQ SCH ×4 (07:27→20:28)
[2022-10-19] MEDS: DOCUSATE SODIUM 100 MG CAPSULE PO SCH ×2 (09:03→20:55)
[2022-10-19] MEDS: ASPIRIN 81 MG TAB.CHEW PO SCH (09:03)
[2022-10-19] MEDS: ENOXAPARIN 40 MG/0.4 ML SYRINGE SQ SCH (09:04)
[2022-10-19] MEDS: TAMSULOSIN 0.4 MG CAPSULE PO SCH (09:04)
[2022-10-19] MEDS: FAMOTIDINE 20 MG TABLET PO SCH (09:05)
[2022-10-19] MEDS: GABAPENTIN 300 MG CAPSULE PO SCH ×3 (09:05→20:55)
[2022-10-19] MEDS: cefTRIAXone 2 GM in DEXTROSE 5% IN WATER 50 ML IV SCH (09:22)
[2022-10-19] MEDS: hydrALAZINE 25 MG TABLET PO SCH (09:24)
[2022-10-19] MEDS: ISOSORBIDE MONONITRATE 60 MG TAB.XL.24H PO SCH (09:24)
[2022-10-19] MEDS: METOPROLOL TARTRATE 50 MG TABLET PO SCH (09:24)
[2022-10-19] MEDS: METOPROLOL TARTRATE 25 MG TABLET PO SCH ×2 (09:46→20:54)
[2022-10-19] MEDS: ISOSORBIDE MONONITRATE 30 MG TAB.XL.24H PO SCH ×2 (09:46→20:54)
--- NOTE | 2022-10-19 14:19 | Internal Med Progress Note ---
SUBJECTIVE Subjective Patient information: Note initiated : 10/19/22 at 2:17 pm Service Date, if different from initiated Date: [] Patient: Clifford Herbert 62 y/o M admitted on 10/18/22 for weakness. Chief Complaint: [] Interval history: Mr. Herbert is a 62 year old male with multiple comorbidities who presented to the emergency department for concern of a stroke. In the emergency department, the patient underwent an initial stroke work-up with noncontrast CT head, CTA head and neck which was unremarkable. The patient was found to be septic secondary to left lower extremity cellulitis. He was started on IV fluid and IV antibiotics, hospital medicine was consulted for admission. 10/19 Patient had fevers overnight, hemodynamically stable with soft BP, leukocytosis improving, lactic acid normal. Cellulitis improved since admission. Reduced home beta-tania, Imdur, holding home amlodipine, hydralazine, losartan. Continues on vancomycin IV and ceftriaxone. Blood cultures pending. NT proBNP elevated at 940, urine protein creatinine ratio was normal. Left lower extremity venous duplex was negative for DVT in thigh region, the calf veins were not visualized. Transthoracic echocardiogram ordered. Physical exam Head: Atraumatic, normal inspection. Eyes: normal appearance, no scleral icterus. Neck: full ROM Respiratory: no respiratory distress. Cardiovascular: normal rate and rhythm, S1, S2. GI/Abdominal: soft, nontender, no guarding. Extremities: Left lower extremity wound, healing wound on plantar aspect of left foot, bilateral lower extremity pitting edema. Neurological: CN II-XII intact, intact motor, intact sensation. Psychiatric: Impaired cognition Skin: Warmth, redness, tenderness in left lower extremity extending from wound, down to foot and up to groin. Constitutional Vitals: Vital Signs Temp Pulse Resp BP Pulse Ox O2 Del Method O2 Flow Rate 99.1 F H 79 17 120/70 99 2 10/19/22 12:01 10/19/22 13:38 10/19/22 12:09 10/19/22 12:01 10/19/22 12:09 10/19/22 12:01 10/19/22 12:01 Period Temp Pulse Resp BP Sys/Holbrook Pulse Ox O2 Del Method O2 Flow Rate Last 24 Hr 97.8 F-102.2 F 76-109 13-36 107-151/52-103 92-99 Nasal Cannula-Room Air 2-3 Intake and Output 10/19/22 10/19/22 10/19/22 03:59 11:59 19:59 Intake Total 650 530 500 Output Total 325 126 Balance 325 404 500 Intake & Output: Intake & Output 10/19/22 10/19/22 10/19/22 03:59 11:59 19:59 Intake Total 650 530 500 Output Total 325 126 Balance 325 404 500 Intake: IV 650 50 500 Vancomycin 500 mg In Sodium 100 Chloride 0.9% 100 ml @ 100 mls/ hr IV ONCE ONE Rx#:[id number] Vancomycin 1,500 mg In Sodium 500 500 Chloride 0.9% 500 ml @ 333.3 mls/hr IV Q12H [facility] Rx#: [id number] Rocephin 2 gm In Dextrose 5% in 50 50 Water 50 ml @ 100 mls/hr IV Q24H [facility] Rx#:[id number] Oral 480 Output: Void Amount 325 125 # of times incontinent of urine 1 Other: Meal Dinner Percent of Meal Consumed 50% Urine Appearance Clear Clear Urine Color Light [place] Light [place] # Voids 1 # of times incontinent of 2 Bowels OBJ DATA Labs CBC & Chem 7: 10/19/22 05:25 10/19/22 05:25 Labs: Abnormal Lab Results 10/19/22 10/19/22 10/18/22 05:25 05:25 17:22 WBC 15.5 H RBC 4.22 L Hgb 12.9 L Hct 38.2 L POC Hct Immature Gran % (Auto) 0.8 H Neut % (Auto) 85.0 H Lymph % (Auto) 6.5 L Lymph # (Auto) 1.00 L [place] # (Auto) 1.13 H Immature Gran # 0.12 H Absolute Neutrophils 13.19 H POC VBG pO2 23 L POC VBG HCO3 POC VBG Base Excess 3.0 H VBG Lactic Acid Glucose 117 H POC Glucose Calcium 8.5 L AST 61 H NT-Pro-B Natriuret Pep 940.0 H Urine Protein Urine Occult Blood Broad Casts Urine Mucus 10/18/22 10/18/22 10/18/22 15:18 15:00 14:07 WBC RBC Hgb Hct POC Hct 38.0 L Immature Gran % (Auto) Neut % (Auto) Lymph % (Auto) Lymph # (Auto) [place] # (Auto) Immature Gran # Absolute Neutrophils POC VBG pO2 POC VBG HCO3 28.2 H POC VBG Base Excess 4.0 H* VBG Lactic Acid 2.6 H Glucose POC Glucose 131 H Calcium AST NT-Pro-B Natriuret Pep Urine Protein Trace A Urine Occult Blood Small A Broad Casts 1 H Urine Mucus Few A 10/18/22 10/18/22 14:06 14:06 WBC 20.0 H RBC Hgb Hct POC Hct Immature Gran % (Auto) 0.7 H Neut % (Auto) 93.1 H Lymph % (Auto) 1.9 L Lymph # (Auto) 0.38 L [place] # (Auto) Immature Gran # 0.13 H Absolute Neutrophils 18.62 H POC VBG pO2 POC VBG HCO3 POC VBG Base Excess VBG Lactic Acid Glucose POC Glucose Calcium AST 52 H NT-Pro-B Natriuret Pep Urine Protein Urine Occult Blood Broad Casts Urine Mucus Meds: Medications Acetaminophen (Acetaminophen 325 Mg Tablet) 650 mg PO Q6HP PRN; Protocol PRN Reason: Per Pain Protocol/Fever > 101 Last Admin: 10/19/22 02:34 Dose: 650 mg Hydrocodone Bitart/Acetaminophen (Hydrocodone/Apap 7.5/325mg Tablet) 1 tab PO Q4HP PRN; Protocol PRN Reason: Per Pain Protocol Last Admin: 10/18/22 19:53 Dose: 1 tab Albuterol/Ipratropium (Ipratropium/Albuterol 3 Ml Ampul.Neb) 3 ml NEB Q4HP PRN PRN Reason: shortness of breath or wheezing Aspirin (Aspirin 81 Mg Tab.Chew) 81 mg PO DAILY [facility] Last Admin: 10/19/22 09:03 Dose: 81 mg Atorvastatin Calcium (Atorvastatin 20 Mg Tablet) 20 mg PO QPM [facility] Last Admin: 10/18/22 21:12 Dose: 20 mg Dextrose (Dextrose 50% 50 Ml Vial) 0 ml IV UD PRN PRN Reason: Per Sliding Scale Diagnostic Test (Pha) (Accu-Chek 1 Each Strip) 1 each FS ACHS [facility] Last Admin: 10/19/22 11:43 Dose: 1 each Docusate Sodium (Docusate Sodium 100 Mg Capsule) 100 mg PO BID [facility] Last Admin: 10/19/22 09:03 Dose: 100 mg Enoxaparin Sodium (Enoxaparin 40 Mg/0.4 Ml Syringe) 40 mg SQ DAILY [facility] Last Admin: 10/19/22 09:04 Dose: 40 mg Famotidine (Famotidine 20 Mg Tablet) 40 mg PO QDAY [facility] Last Admin: 10/19/22 09:05 Dose: 40 mg Gabapentin (Gabapentin 300 Mg Capsule) 600 mg PO TID [facility] Last Admin: 10/19/22 09:05 Dose: 600 mg Glucose (Dextrose 31 Gm Oral.Susp) 15 gm PO PRN PRN PRN Reason: Hypoglycemia Ceftriaxone Sodium 2 gm/ (Dextrose) 50 mls @ 100 mls/hr IV Q24H [facility]; Protocol Last Infusion: 10/19/22 09:55 Dose: Infused Vancomycin HCl 1,500 mg/ (Sodium Chloride) 500 mls @ 333.3 mls/hr IV Q12H [facility] Last Infusion: 10/19/22 13:07 Dose: Infused Insulin Human Lispro (Insulin Lispro 1 Unit/0.01 Ml Unit) 0 unit SQ ACHS [facility]; Protocol Last Admin: 10/19/22 11:43 Dose: Not Given Isosorbide Mononitrate (Isosorbide Mononitrate 30 Mg Tab.Xl.24h) 30 mg PO BID [facility] Last Admin: 10/19/22 09:46 Dose: 30 mg Ketorolac Tromethamine (Ketorolac 15 Mg/Ml Vial) 15 mg IV Q6HP PRN PRN Reason: Pain Stop: 10/20/22 18:26 Lactulose (Lactulose 20 Gm/30 Ml Oral.Simona) 10 gm PO DAILYP PRN PRN Reason: Constipation Metoprolol Tartrate (Metoprolol Tartrate 25 Mg Tablet) 12.5 mg PO BID [facility] Last Admin: 10/19/22 09:46 Dose: 12.5 mg Nitroglycerin (Nitroglycerin 0.4 Mg Tab.Subl) 0.4 mg SL Q5MINP PRN PRN Reason: Chest Pain Ondansetron HCl (Ondansetron 4 Mg/2 Ml Vial) 4 mg IV Q4HP PRN; Protocol PRN Reason: Nausea And Vomiting Senna (Sennosides 1 Tablet) 2 tab PO HSP PRN PRN Reason: Constipation Sodium Chloride (0.9 % Sodium Chloride 10 Ml Syringe) 10 ml IV Q8 [facility] Last Admin: 10/19/22 13:11 Dose: 10 ml Tamsulosin HCl (Tamsulosin 0.4 Mg Capsule) 0.8 mg PO QDAY [facility] Last Admin: 10/19/22 09:04 Dose: 0.8 mg Vancomycin HCl (Vancomycin Per Pharmacy) 1 order IV [facility]; Protocol A/P Narrative A/P Narrative: Assessment:62-year-old male with multiple comorbidities admitted for sepsis secondary to left lower extremity cellulitis. Patient has a left lower extremity wound secondary to venous stasis dermatitis which is the reason for cellulitis. #Sepsis secondary to left lower extremity cellulitis #Left lower extremity wounds secondary to venous stasis #Multiple risk factors for MRSA #Volume overload, suspect due to heart failure #Encephalopathy secondary to sepsis #Type 2 diabetes mellitus #Coronary artery disease, stable #Hypertension #Hyperlipidemia #Chronic back pain on long-term opioid #Obstructive sleep apnea not on CPAP #Obesity with BMI 40 Plan -Vancomycin IV and ceftriaxone for now. -Hold off on further IV fluids due to volume overload. -Follow blood cultures x2. -Follow CBC and IPP. -Transthoracic echocardiogram. -Humalog SSIlow dose. -Analgesics as needed. -The patient will probably require diuresis after sepsis physiology resolves. -Continue home Aspirin, atorvastatin, Pepcid, Neurontin, Flomax, nitro SL as needed. -Continue reduced doses of home metoprolol, Imdur. -Holding home Norvasc, hydralazine, losartan for soft BP. -Consistent carbohydrate diet. -PT and OT consult. -desk monitor. -DVT prophylaxis: Lovenox -CODE STATUS: Full -Disposition: Home when stable. Consider higher dose of loop diuretic at discharge. Consider SGLT2 inhibitor if it is covered by insurance. Time Spent With Patient Time: Total time spent is greater than 50% in coordination of care (as documented) at patient's floor/unit and/or counseling patient:
[2022-10-19] MEDS: ATORVASTATIN 20 MG TABLET PO SCH (20:54)
[2022-10-19] MEDS: HYDROCODONE/APAP 7.5/325MG TABLET PO PRN (20:55)
[2022-10-20] MEDS: 0.9 % SODIUM CHLORIDE 10 ML SYRINGE IV SCH ×3 (05:24→21:12)
[2022-10-20 06:09] LABS: Basophils # (Auto) 0.05 K/mcL (0.00-0.30); Basophils % (Auto) 0.5 % (0.0-2.0); Eosinophils # (Auto) 0.18 K/mcL (0.00-0.70); Eosinophils % (Auto) 1.8 % (0.0-7.0); Hematocrit 35.3 % (40.1-51.0); Hemoglobin 11.8 g/dL (13.7-17.5); Lymphocytes # (Auto) 1.44 K/mcL (1.50-4.80); Lymphocytes % (Auto) 14.3 % (15.5-49.0); Mean Cell Volume 88.9 fL (80.0-100.0); Mean Corpuscular HGB Conc 33.4 g/dL (31.0-36.0); Monocytes # (Auto) 0.93 K/mcL (0.10-0.90); Monocytes % (Auto) 9.2 % (1.0-12.0); Neutrophils % (Auto) 73.7 % (38.0-78.0); Platelet Count 174 K/mcL (140-440); RBC 3.97 M/mcL (4.63-6.08); WBC 10.1 K/mcL (4.5-11.0)
[2022-10-20 06:36] LABS: ALT/SGPT 14 U/L (<40); AST/SGOT 38 U/L (<40); Albumin 2.9 gm/dL (3.2-5.2); Alkaline Phosphatase 60 U/L (39-117); Bilirubin,Direct < 0.2 mg/dL (0-0.3); Bilirubin,Total 0.5 mg/dL (0.1-1.0); Blood Urea Nitrogen 16 mg/dL (8-23); Calcium 8.6 mg/dL (8.6-10.4); Carbon Dioxide 25 mmol/L (22-30); Chloride 104 mmol/L (96-108); Globulin 2.9 gm/dL (2.2-3.7); Glomerular Filtration Rate 95; Glucose 115 mg/dL (70-105); Lactate Dehydrogenase 185 U/L (135-225); Phosphorous 2.4 mg/dL (2.5-4.5); Triglycerides 112 mg/dL (<150); Uric Acid 5.4 mg/dL (2.5-8.0)
[2022-10-20] MEDS: HYDROCODONE/APAP 7.5/325MG TABLET PO PRN ×2 (06:44→13:26)
[2022-10-20] MEDS: INSULIN LISPRO 1 UNIT/0.01 ML UNIT SQ SCH ×4 (08:11→20:27)
--- NOTE | 2022-10-20 08:11 | Magnetic Resonance Report ---
History: Code stroke on 10/18/22 with persistent weakness TECHNIQUE: Stroke protocol was performed. FINDINGS: The T2 FLAIR sequences reveal the presence of multiple small scattered high signal lesions in the white matter, predominantly involving the frontal and parietal lobes with milder involvement in the posterior temporal and occipital lobes. These have no restricted diffusion or mass effect. There is no evidence of an infarct, hemorrhage or neoplasm. Mild generalized atrophy is present. The ventricles are prominent but proportionate to the atrophy. No abnormal extra-axial fluid collection is present. Allowing for differences in technique, there is been little change from the head CT performed on 10/18/22. IMPRESSION: Age-related degenerative changes and no evidence of infarct or hemorrhage Interpreted and Authenticated by: Blake Molina 10/20/22
[2022-10-20] MEDS: ASPIRIN 81 MG TAB.CHEW PO SCH (08:18)
[2022-10-20] MEDS: METOPROLOL TARTRATE 25 MG TABLET PO SCH ×2 (08:18→21:11)
[2022-10-20] MEDS: DOCUSATE SODIUM 100 MG CAPSULE PO SCH ×2 (08:18→21:12)
[2022-10-20] MEDS: TAMSULOSIN 0.4 MG CAPSULE PO SCH (08:18)
[2022-10-20] MEDS: ISOSORBIDE MONONITRATE 30 MG TAB.XL.24H PO SCH ×2 (08:18→21:11)
[2022-10-20] MEDS: ENOXAPARIN 40 MG/0.4 ML SYRINGE SQ SCH (08:19)
[2022-10-20] MEDS: FAMOTIDINE 20 MG TABLET PO SCH (08:19)
[2022-10-20] MEDS: GABAPENTIN 300 MG CAPSULE PO SCH ×3 (08:19→21:11)
[2022-10-20] MEDS: cefTRIAXone 2 GM in DEXTROSE 5% IN WATER 50 ML IV SCH (08:20)
--- NOTE | 2022-10-20 08:35 | Internal Med Progress Note ---
SUBJECTIVE Subjective Patient information: Note initiated : 10/20/22 at 8:32 am Service Date, if different from initiated Date: [] Patient: Clifford Herbert 62 y/o M admitted on 10/18/22 for weakness. Chief Complaint: [] Interval history: Mr. Herbert is a 62 year old male with multiple comorbidities who presented to the emergency department for concern of a stroke. In the emergency department, the patient underwent an initial stroke work-up with noncontrast CT head, CTA head and neck which was unremarkable. The patient was found to be septic secondary to left lower extremity cellulitis. He was started on IV fluid and IV antibiotics, hospital medicine was consulted for admission. 10/19 Patient had fevers overnight, hemodynamically stable with soft BP, leukocytosis improving, lactic acid normal. Cellulitis improved since admission. Reduced home beta-tania, Imdur, holding home amlodipine, hydralazine, losartan. Continues on vancomycin IV and ceftriaxone. Blood cultures pending. NT proBNP elevated at 940, urine protein creatinine ratio was normal. Left lower extremity venous duplex was negative for DVT in thigh region, the calf veins were not visualized. Transthoracic echocardiogram ordered. 10/20 The patient is alert and oriented today, mild facial droop noted. MRI brain ordered. Cellulitis improving on antibiotics. Transthoracic echocardiogram report pending. The patient did not tolerate CPAP well overnight. Physical exam Head: Atraumatic, normal inspection. Eyes: normal appearance, no scleral icterus. Neck: full ROM Respiratory: no respiratory distress. Cardiovascular: normal rate and rhythm, S1, S2. GI/Abdominal: soft, nontender, no guarding. Extremities: Left lower extremity wound, healing wound on plantar aspect of left foot, bilateral lower extremity pitting edema. Neurological: Mild facial droop, CN II-XII intact, intact motor, intact sensation. Psychiatric: Normal mood, normal cognition. Skin: Warmth, redness, tenderness in left lower extremity extending from wound, down to foot and up to groin. Constitutional Vitals: Vital Signs Temp Pulse Resp BP Pulse Ox O2 Del Method O2 Flow Rate 99.4 F H 84 22 123/54 94 2 10/20/22 04:01 10/20/22 06:00 10/20/22 06:00 10/20/22 04:01 10/20/22 06:00 10/20/22 04:01 10/20/22 00:01 Period Temp Pulse Resp BP Sys/[place] Pulse Ox O2 Del Method O2 Flow Rate Last 24 Hr 99.1 F-99.9 F 76-93 7-36 108-130/54-70 90-99 Nasal Cannula- Room Air 2-3 Intake and Output 10/19/22 10/20/22 10/20/22 19:59 03:59 11:59 Intake Total 740 500 Output Total 1100 750 Balance -360 -250 Weight 129.773 kg Intake & Output: Intake & Output 10/19/22 10/20/22 10/20/22 19:59 03:59 11:59 Intake Total 740 500 Output Total 1100 750 Balance -360 -250 Weight 129.773 kg Intake: IV 500 500 Vancomycin 1,500 mg In Sodium 500 500 Chloride 0.9% 500 ml @ 333.3 mls/hr IV Q12H [facility] Rx#: [id number] Oral 240 Output: Void Amount 1100 750 Other: Meal Lunch Percent of Meal Consumed 100% Feeding Ability Assist with Tray Set Up Urine Appearance Clear Clear Urine Color Pale Pale OBJ DATA Labs CBC & Chem 7: 10/20/22 05:18 10/20/22 05:18 Labs: Abnormal Lab Results 10/20/22 10/20/22 10/19/22 05:18 05:18 05:25 WBC RBC 3.97 L Hgb 11.8 L Hct 35.3 L POC Hct Immature Gran % (Auto) Neut % (Auto) Lymph % (Auto) 14.3 L Lymph # (Auto) 1.44 L [place] # (Auto) 0.93 H Immature Gran # Absolute Neutrophils POC VBG pO2 POC VBG HCO3 POC VBG Base Excess VBG Lactic Acid Glucose 115 H 117 H POC Glucose Calcium 8.5 L Phosphorus 2.4 L AST 61 H NT-Pro-B Natriuret Pep 940.0 H Total Protein 5.8 L Albumin 2.9 L Urine Protein Urine Occult Blood Broad Casts Urine Mucus 10/19/22 10/18/22 10/18/22 05:25 17:22 15:18 WBC 15.5 H RBC 4.22 L Hgb 12.9 L Hct 38.2 L POC Hct 38.0 L Immature Gran % (Auto) 0.8 H Neut % (Auto) 85.0 H Lymph % (Auto) 6.5 L Lymph # (Auto) 1.00 L [place] # (Auto) 1.13 H Immature Gran # 0.12 H Absolute Neutrophils 13.19 H POC VBG pO2 23 L POC VBG HCO3 POC VBG Base Excess 3.0 H VBG Lactic Acid Glucose POC Glucose 131 H Calcium Phosphorus AST NT-Pro-B Natriuret Pep Total Protein Albumin Urine Protein Urine Occult Blood Broad Casts Urine Mucus 10/18/22 10/18/22 10/18/22 15:00 14:07 14:06 WBC RBC Hgb Hct POC Hct Immature Gran % (Auto) Neut % (Auto) Lymph % (Auto) Lymph # (Auto) [place] # (Auto) Immature Gran # Absolute Neutrophils POC VBG pO2 POC VBG HCO3 28.2 H POC VBG Base Excess 4.0 H* VBG Lactic Acid 2.6 H Glucose POC Glucose Calcium Phosphorus AST 52 H NT-Pro-B Natriuret Pep Total Protein Albumin Urine Protein Trace A Urine Occult Blood Small A Broad Casts 1 H Urine Mucus Few A 10/18/22 14:06 WBC 20.0 H RBC Hgb Hct POC Hct Immature Gran % (Auto) 0.7 H Neut % (Auto) 93.1 H Lymph % (Auto) 1.9 L Lymph # (Auto) 0.38 L [place] # (Auto) Immature Gran # 0.13 H Absolute Neutrophils 18.62 H POC VBG pO2 POC VBG HCO3 POC VBG Base Excess VBG Lactic Acid Glucose POC Glucose Calcium Phosphorus AST NT-Pro-B Natriuret Pep Total Protein Albumin Urine Protein Urine Occult Blood Broad Casts Urine Mucus Meds: Medications Acetaminophen (Acetaminophen 325 Mg Tablet) 650 mg PO Q6HP PRN; Protocol PRN Reason: Per Pain Protocol/Fever > 101 Last Admin: 10/19/22 02:34 Dose: 650 mg Hydrocodone Bitart/Acetaminophen (Hydrocodone/Apap 7.5/325mg Tablet) 1 tab PO Q4HP PRN; Protocol PRN Reason: Per Pain Protocol Last Admin: 10/20/22 06:44 Dose: 1 tab Albuterol/Ipratropium (Ipratropium/Albuterol 3 Ml Ampul.Neb) 3 ml NEB Q4HP PRN PRN Reason: shortness of breath or wheezing Aspirin (Aspirin 81 Mg Tab.Chew) 81 mg PO DAILY [facility] Last Admin: 10/20/22 08:18 Dose: 81 mg Atorvastatin Calcium (Atorvastatin 20 Mg Tablet) 20 mg PO QPM [facility] Last Admin: 10/19/22 20:54 Dose: 20 mg Dextrose (Dextrose 50% 50 Ml Vial) 0 ml IV UD PRN PRN Reason: Per Sliding Scale Diagnostic Test (Pha) (Accu-Chek 1 Each Strip) 1 each FS ACHS [facility] Last Admin: 10/20/22 08:11 Dose: 1 each Docusate Sodium (Docusate Sodium 100 Mg Capsule) 100 mg PO BID [facility] Last Admin: 10/20/22 08:18 Dose: 100 mg Enoxaparin Sodium (Enoxaparin 40 Mg/0.4 Ml Syringe) 40 mg SQ DAILY [facility] Last Admin: 10/20/22 08:19 Dose: 40 mg Famotidine (Famotidine 20 Mg Tablet) 40 mg PO QDAY [facility] Last Admin: 10/20/22 08:19 Dose: 40 mg Gabapentin (Gabapentin 300 Mg Capsule) 600 mg PO TID [facility] Last Admin: 10/20/22 08:19 Dose: 600 mg Glucose (Dextrose 31 Gm Oral.Susp) 15 gm PO PRN PRN PRN Reason: Hypoglycemia Ceftriaxone Sodium 2 gm/ (Dextrose) 50 mls @ 100 mls/hr IV Q24H [facility]; Protocol Last Admin: 10/20/22 08:20 Dose: 100 mls/hr Vancomycin HCl 1,500 mg/ (Sodium Chloride) 500 mls @ 333.3 mls/hr IV Q12H [facility] Last Infusion: 10/19/22 23:57 Dose: Infused Insulin Human Lispro (Insulin Lispro 1 Unit/0.01 Ml Unit) 0 unit SQ [facility]; Protocol Last Admin: 10/20/22 08:11 Dose: Not Given Isosorbide Mononitrate (Isosorbide Mononitrate 30 Mg Tab.Xl.24h) 30 mg PO BID [facility] Last Admin: 10/20/22 08:18 Dose: 30 mg Ketorolac Tromethamine (Ketorolac 15 Mg/Ml Vial) 15 mg IV Q6HP PRN PRN Reason: Pain Stop: 10/20/22 18:26 Lactulose (Lactulose 20 Gm/30 Ml Oral.Simona) 10 gm PO DAILYP PRN PRN Reason: Constipation Metoprolol Tartrate (Metoprolol Tartrate 25 Mg Tablet) 12.5 mg PO BID [facility] Last Admin: 10/20/22 08:18 Dose: 12.5 mg Nitroglycerin (Nitroglycerin 0.4 Mg Tab.Subl) 0.4 mg SL Q5MINP PRN PRN Reason: Chest Pain Ondansetron HCl (Ondansetron 4 Mg/2 Ml Vial) 4 mg IV Q4HP PRN; Protocol PRN Reason: Nausea And Vomiting Senna (Sennosides 1 Tablet) 2 tab PO HSP PRN PRN Reason: Constipation Sodium Chloride (0.9 % Sodium Chloride 10 Ml Syringe) 10 ml IV Q8 [facility] Last Admin: 10/20/22 05:24 Dose: 10 ml Tamsulosin HCl (Tamsulosin 0.4 Mg Capsule) 0.8 mg PO QDAY [facility] Last Admin: 10/20/22 08:18 Dose: 0.8 mg Vancomycin HCl (Vancomycin Per Pharmacy) 1 order IV UD [facility]; Protocol A/P Narrative A/P Narrative: Assessment:62-year-old male with multiple comorbidities admitted for sepsis secondary to left lower extremity cellulitis. Patient has a left lower extremity wound secondary to venous stasis dermatitis which is the reason for cellulitis. #Sepsis secondary to left lower extremity cellulitis #Left lower extremity wounds secondary to venous stasis #Multiple risk factors for MRSA #Mild volume overload #Facial droop, concern for stroke #Resolved encephalopathy secondary to sepsis #Type 2 diabetes mellitus #Coronary artery disease, stable #Hypertension #Hyperlipidemia #Chronic back pain on long-term opioid #Obstructive sleep apnea not on CPAP #Obesity with BMI 40 Plan -Vancomycin IV and ceftriaxone for now, if blood cultures negative at 48 hours consider de-escalation. -Follow blood cultures x2. -Follow CBC and IPP. -Transthoracic echocardiogram. -Humalog SSIlow dose. -Analgesics as needed. -MRI brain to evaluate for possible stroke, noncontrast CT head, CTA head and neck work-up in the ED was negative. -Continue home Aspirin, atorvastatin, Pepcid, Neurontin, Flomax, nitro SL as needed. -Continue reduced doses of home metoprolol, Imdur. -Holding home Norvasc, hydralazine, losartan, lasix for now for low normal blood pressure. -Consistent carbohydrate diet. -PT and OT consult. -quality assurance monitor body. -DVT prophylaxis: Lovenox -CODE STATUS: Full -Disposition: Home when stable. Consider higher dose of oral lasix at discharge. Time Spent With Patient Time: Total time spent is greater than 50% in coordination of care (as documented) at patient's floor/unit and/or counseling patient:
[2022-10-20] MEDS: VANCOMYCIN 1,500 MG in 0.9 % SODIUM CHLORIDE 500 ML IV SCH ×2 (10:44→21:12)
[2022-10-20] MEDS: oxyCODONE/APAP 5/325MG TABLET PO PRN ×2 (16:44→21:10)
[2022-10-20] MEDS: ATORVASTATIN 20 MG TABLET PO SCH (21:11)
[2022-10-21] MEDS: 0.9 % SODIUM CHLORIDE 10 ML SYRINGE IV SCH ×3 (05:04→20:28)
[2022-10-21 07:27] LABS: Basophils # (Auto) 0.05 K/mcL (0.00-0.30); Basophils % (Auto) 0.7 % (0.0-2.0); Eosinophils # (Auto) 0.41 K/mcL (0.00-0.70); Eosinophils % (Auto) 5.4 % (0.0-7.0); Hemoglobin 11.4 g/dL (13.7-17.5); Lymphocytes # (Auto) 1.36 K/mcL (1.50-4.80); Mean Cell Volume 88.8 fL (80.0-100.0); Mean Corpuscular HGB Conc 33.5 g/dL (31.0-36.0); Mean Platelet Volume 10.1 fL (8.8-12.5); Monocytes # (Auto) 0.66 K/mcL (0.10-0.90); Monocytes % (Auto) 8.8 % (1.0-12.0); Neutrophils % (Auto) 66.6 % (38.0-78.0); Platelet Count 178 K/mcL (140-440); RBC 3.83 M/mcL (4.63-6.08); WBC 7.5 K/mcL (4.5-11.0)
[2022-10-21] MEDS: METOPROLOL TARTRATE 25 MG TABLET PO SCH ×2 (08:20→20:28)
[2022-10-21] MEDS: ENOXAPARIN 40 MG/0.4 ML SYRINGE SQ SCH (08:20)
[2022-10-21] MEDS: GABAPENTIN 300 MG CAPSULE PO SCH ×3 (08:20→20:27)
[2022-10-21] MEDS: TAMSULOSIN 0.4 MG CAPSULE PO SCH (08:20)
[2022-10-21] MEDS: DOCUSATE SODIUM 100 MG CAPSULE PO SCH ×2 (08:20→20:27)
[2022-10-21] MEDS: ISOSORBIDE MONONITRATE 30 MG TAB.XL.24H PO SCH ×2 (08:20→20:27)
[2022-10-21] MEDS: ASPIRIN 81 MG TAB.CHEW PO SCH (08:21)
[2022-10-21] MEDS: INSULIN LISPRO 1 UNIT/0.01 ML UNIT SQ SCH ×4 (08:21→20:27)
[2022-10-21] MEDS: FAMOTIDINE 20 MG TABLET PO SCH (08:21)
[2022-10-21 08:28] LABS: ALT/SGPT 17 U/L (<40); AST/SGOT 39 U/L (<40); Albumin 3.2 gm/dL (3.2-5.2); Albumin/Globulin Ratio 1.2 (1.0-2.3); Alkaline Phosphatase 67 U/L (39-117); Bilirubin,Direct < 0.2 mg/dL (0-0.3); Bilirubin,Total 0.3 mg/dL (0.1-1.0); Blood Urea Nitrogen 19 mg/dL (8-23); Calcium 8.7 mg/dL (8.6-10.4); Carbon Dioxide 27 mmol/L (22-30); Chloride 104 mmol/L (96-108); Globulin 2.6 gm/dL (2.2-3.7); Glomerular Filtration Rate 100; Glucose 102 mg/dL (70-105); Lactate Dehydrogenase 204 U/L (135-225); Phosphorous 3.1 mg/dL (2.5-4.5); Triglycerides 129 mg/dL (<150); Uric Acid 5.1 mg/dL (2.5-8.0)
[2022-10-21] MEDS: cefTRIAXone 2 GM in DEXTROSE 5% IN WATER 50 ML IV SCH (08:30)
[2022-10-21] MEDS: VANCOMYCIN 1,500 MG in 0.9 % SODIUM CHLORIDE 500 ML IV SCH ×2 (10:07→20:27)
--- NOTE | 2022-10-21 12:21 | Internal Med Progress Note ---
SUBJECTIVE Subjective Patient information: Note initiated : 10/21/22 at 12:13 pm Service Date, if different from initiated Date: [] Patient: Clifford Herbert 62 y/o M admitted on 10/18/22 for weakness. Chief Complaint: [] Interval history: Mr. Herbert is a 62 year old male with multiple comorbidities who presented to the emergency department for concern of a stroke. In the emergency department, the patient underwent an initial stroke work-up with noncontrast CT head, CTA head and neck which was unremarkable. The patient was found to be septic secondary to left lower extremity cellulitis. He was started on IV fluid and IV antibiotics, hospital medicine was consulted for admission. 10/19 Patient had fevers overnight, hemodynamically stable with soft BP, leukocytosis improving, lactic acid normal. Cellulitis improved since admission. Reduced home beta-tania, Imdur, holding home amlodipine, hydralazine, losartan. Continues on vancomycin IV and ceftriaxone. Blood cultures pending. NT proBNP elevated at 940, urine protein creatinine ratio was normal. Left lower extremity venous duplex was negative for DVT in thigh region, the calf veins were not visualized. Transthoracic echocardiogram ordered. 10/20 The patient is alert and oriented today, mild facial droop noted. MRI brain ordered. Cellulitis improving on antibiotics. Transthoracic echocardiogram report pending. The patient did not tolerate CPAP well overnight. 10/21-patient doing a lot better. WBC down to 7.5, cultures negative so far, lower EXTR lymphedema/cellulitis much improved, potassium 3.2 on replacement, phosphorus 3.1 improved with replacement. Cultures negative so far. Stable hemodynamics. MRI brain unremarkable for acute process, echocardiogram normal EF, Doppler US lower extremity no evidence of PT OT angiogram head neck normal exam. S Constitutional Vitals: Vital Signs Temp Pulse Resp BP Pulse Ox O2 Del Method O2 Flow Rate 97.6 F 69 16 135/76 95 2 10/21/22 03:24 10/21/22 03:24 10/21/22 03:24 10/21/22 03:24 10/21/22 03:24 10/21/22 03:24 10/20/22 00:01 Period Temp Pulse Resp BP Sys/[place] Pulse Ox O2 Del Method O2 Flow Rate Last 24 Hr 97.6 F-98.2 F 64-76 14-16 135-140/70-82 95-97 Room Air-Room Air Intake and Output 10/21/22 10/21/22 10/21/22 03:59 11:59 19:59 Intake Total 800 550 Output Total 250 500 Balance 550 50 Weight 133.356 kg Alert oriented Obese with BMI 40 Left lower extremity redness and erythema improving from ankle to mid thigh Lymphedema noted No joint swelling Intake & Output: Intake & Output 10/21/22 10/21/22 10/21/22 03:59 11:59 19:59 Intake Total 800 550 Output Total 250 500 Balance 550 50 Weight 133.356 kg Intake: IV 500 550 Vancomycin 1,500 mg In Sodium 500 500 Chloride 0.9% 500 ml @ 333.3 mls/hr IV Q12H [facility] Rx#: [id number] Rocephin 2 gm In Dextrose 5% in 50 Water 50 ml @ 100 mls/hr IV Q24H [facility] Rx#:[id number] Oral 300 Output: Void Amount 250 500 Other: Urine Appearance Clear Clear Urine Color Dark Yellow Yellow Urine Odor Normal OBJ DATA Labs CBC & Chem 7: 10/21/22 05:31 10/21/22 05:31 Labs: Abnormal Lab Results 10/21/22 10/21/22 10/20/22 05:31 05:31 05:18 WBC RBC 3.83 L Hgb 11.4 L Hct 34.0 L POC Hct Immature Gran % (Auto) Neut % (Auto) Lymph % (Auto) Lymph # (Auto) 1.36 L [place] # (Auto) Immature Gran # Absolute Neutrophils POC VBG pO2 POC VBG HCO3 POC VBG Base Excess VBG Lactic Acid Potassium 3.2 L Glucose 115 H POC Glucose Calcium Phosphorus 2.4 L AST NT-Pro-B Natriuret Pep Total Protein 5.8 L 5.8 L Albumin 2.9 L Urine Protein Urine Occult Blood Broad Casts Urine Mucus 10/20/22 10/19/22 10/19/22 05:18 05:25 05:25 WBC 15.5 H RBC 3.97 L 4.22 L Hgb 11.8 L 12.9 L Hct 35.3 L 38.2 L POC Hct Immature Gran % (Auto) 0.8 H Neut % (Auto) 85.0 H Lymph % (Auto) 14.3 L 6.5 L Lymph # (Auto) 1.44 L 1.00 L [place] # (Auto) 0.93 H 1.13 H Immature Gran # 0.12 H Absolute Neutrophils 13.19 H POC VBG pO2 POC VBG HCO3 POC VBG Base Excess VBG Lactic Acid Potassium Glucose 117 H POC Glucose Calcium 8.5 L Phosphorus AST 61 H NT-Pro-B Natriuret Pep 940.0 H Total Protein Albumin Urine Protein Urine Occult Blood Broad Casts Urine Mucus 10/18/22 10/18/22 10/18/22 17:22 15:18 15:00 WBC RBC Hgb Hct POC Hct 38.0 L Immature Gran % (Auto) Neut % (Auto) Lymph % (Auto) Lymph # (Auto) [place] # (Auto) Immature Gran # Absolute Neutrophils POC VBG pO2 23 L POC VBG HCO3 POC VBG Base Excess 3.0 H VBG Lactic Acid Potassium Glucose POC Glucose 131 H Calcium Phosphorus AST NT-Pro-B Natriuret Pep Total Protein Albumin Urine Protein Trace A Urine Occult Blood Small A Broad Casts 1 H Urine Mucus Few A 10/18/22 10/18/22 10/18/22 14:07 14:06 14:06 WBC 20.0 H RBC Hgb Hct POC Hct Immature Gran % (Auto) 0.7 H Neut % (Auto) 93.1 H Lymph % (Auto) 1.9 L Lymph # (Auto) 0.38 L [place] # (Auto) Immature Gran # 0.13 H Absolute Neutrophils 18.62 H POC VBG pO2 POC VBG HCO3 28.2 H POC VBG Base Excess 4.0 H* VBG Lactic Acid 2.6 H Potassium Glucose POC Glucose Calcium Phosphorus AST 52 H NT-Pro-B Natriuret Pep Total Protein Albumin Urine Protein Urine Occult Blood Broad Casts Urine Mucus Meds: Medications Acetaminophen (Acetaminophen 325 Mg Tablet) 650 mg PO Q6HP PRN; Protocol PRN Reason: Per Pain Protocol/Fever > 101 Last Admin: 10/19/22 02:34 Dose: 650 mg Albuterol/Ipratropium (Ipratropium/Albuterol 3 Ml Ampul.Neb) 3 ml NEB Q4HP PRN PRN Reason: shortness of breath or wheezing Last Admin: 10/21/22 03:35 Dose: 3 ml Aspirin (Aspirin 81 Mg Tab.Chew) 81 mg PO DAILY ROMEL Last Admin: 10/21/22 08:21 Dose: 81 mg Atorvastatin Calcium (Atorvastatin 20 Mg Tablet) 20 mg PO QPM [facility] Last Admin: 10/20/22 21:11 Dose: 20 mg Dextrose (Dextrose 50% 50 Ml Vial) 0 ml IV UD PRN PRN Reason: Per Sliding Scale Diagnostic Test (Pha) (Accu-Chek 1 Each Strip) 1 each FS ACHS [facility] Last Admin: 10/21/22 08:21 Dose: 1 each Docusate Sodium (Docusate Sodium 100 Mg Capsule) 100 mg PO BID [facility] Last Admin: 10/21/22 08:20 Dose: 100 mg Enoxaparin Sodium (Enoxaparin 40 Mg/0.4 Ml Syringe) 40 mg SQ DAILY [facility] Last Admin: 10/21/22 08:20 Dose: 40 mg Famotidine (Famotidine 20 Mg Tablet) 40 mg PO QDAY [facility] Last Admin: 10/21/22 08:21 Dose: 40 mg Gabapentin (Gabapentin 300 Mg Capsule) 600 mg PO TID [facility] Last Admin: 10/21/22 08:20 Dose: 600 mg Glucose (Dextrose 31 Gm Oral.Susp) 15 gm PO PRN PRN PRN Reason: Hypoglycemia Ceftriaxone Sodium 2 gm/ (Dextrose) 50 mls @ 100 mls/hr IV Q24H [facility]; Protocol Last Infusion: 10/21/22 09:26 Dose: Infused Vancomycin HCl 1,500 mg/ (Sodium Chloride) 500 mls @ 333.3 mls/hr IV Q12H [facility] Last Infusion: 10/21/22 11:48 Dose: Infused Insulin Human Lispro (Insulin Lispro 1 Unit/0.01 Ml Unit) 0 unit SQ [facility]; Protocol Last Admin: 10/21/22 08:21 Dose: Not Given Isosorbide Mononitrate (Isosorbide Mononitrate 30 Mg Tab.Xl.24h) 30 mg PO BID [facility] Last Admin: 10/21/22 08:20 Dose: 30 mg Lactulose (Lactulose 20 Gm/30 Ml Oral.Simona) 10 gm PO DAILYP PRN PRN Reason: Constipation Metoprolol Tartrate (Metoprolol Tartrate 25 Mg Tablet) 12.5 mg PO BID [facility] Last Admin: 10/21/22 08:20 Dose: 12.5 mg Nitroglycerin (Nitroglycerin 0.4 Mg Tab.Subl) 0.4 mg SL Q5MINP PRN PRN Reason: Chest Pain Ondansetron HCl (Ondansetron 4 Mg/2 Ml Vial) 4 mg IV Q4HP PRN; Protocol PRN Reason: Nausea And Vomiting Oxycodone/Acetaminophen (Oxycodone/Apap 5/325mg Tablet) 0 tab PO Q4HP PRN; Protocol PRN Reason: Per Pain Protocol Last Admin: 10/20/22 21:10 Dose: 1 tab Senna (Sennosides 1 Tablet) 2 tab PO HSP PRN PRN Reason: Constipation Sodium Chloride (0.9 % Sodium Chloride 10 Ml Syringe) 10 ml IV Q8 [facility] Last Admin: 10/21/22 05:04 Dose: 10 ml Tamsulosin HCl (Tamsulosin 0.4 Mg Capsule) 0.8 mg PO QDAY [facility] Last Admin: 10/21/22 08:20 Dose: 0.8 mg Vancomycin HCl (Vancomycin Per Pharmacy) 1 order IV UD [facility]; Protocol A/P Narrative A/P Narrative: Assessment:62-year-old male with multiple comorbidities admitted for sepsis secondary to left lower extremity cellulitis. Patient has a left lower extremity wound secondary to venous stasis dermatitis which is the reason for cellulitis. * Severe sepsis secondary to left lower extremity cellulitis, clinically improving on antibiotic coverage Rocephin/vancomycin. Cultures negative so far. Continue limb elevation * Left lower EXTR cellulitis/chronic wounds/venous stasis, negative US DVT. Improving on antibiotics. Continue diuretics * Acute encephalopathy/but ruled out with negative MRI/CT angiogram head neck and resolution of symptoms * DM type II sliding-scale insulin/BG diet * History of CAD on aspirin, statin, beta-tania, isosorbide, echocardiogram EF 70% * Hypertension, systolics at goal, ARB/Norvasc on hold due to sepsis * HLD on statin * Chronic back pain on opioids * History of CYNTHIA not on CPAP Plan * Continue antibiotics and de-escalate in 24 hours * Pre-existing medical condition management as above * Ambulation/PT OT * Prophylaxis Lovenox * Discharge likely home in 24 to 48 hours Time Spent With Patient Time: Total time spent is greater than 50% in coordination of care (as documented) at patient's floor/unit and/or counseling patient: Total time spent with greater than 50% in coordination of care (as documented) at patient's floor/unit and/or counseling patient:: 25 - 35 minutes
[2022-10-21] MEDS: oxyCODONE/APAP 5/325MG TABLET PO PRN ×2 (15:31→20:33)
[2022-10-21] MEDS: ATORVASTATIN 20 MG TABLET PO SCH (20:27)
[2022-10-22] MEDS: oxyCODONE/APAP 5/325MG TABLET PO PRN ×2 (03:17→08:47)
[2022-10-22] MEDS: 0.9 % SODIUM CHLORIDE 10 ML SYRINGE IV SCH (05:10)
[2022-10-22 06:55] LABS: Basophils # (Auto) 0.04 K/mcL (0.00-0.30); Basophils % (Auto) 0.6 % (0.0-2.0); Eosinophils # (Auto) 0.53 K/mcL (0.00-0.70); Eosinophils % (Auto) 7.7 % (0.0-7.0); Hematocrit 34.5 % (40.1-51.0); Hemoglobin 11.8 g/dL (13.7-17.5); Lymphocytes # (Auto) 1.01 K/mcL (1.50-4.80); Lymphocytes % (Auto) 14.6 % (15.5-49.0); Mean Cell Volume 88.9 fL (80.0-100.0); Mean Corpuscular HGB Conc 34.2 g/dL (31.0-36.0); Mean Platelet Volume 9.6 fL (8.8-12.5); Monocytes # (Auto) 0.82 K/mcL (0.10-0.90); Monocytes % (Auto) 11.9 % (1.0-12.0); Neutrophils % (Auto) 64.8 % (38.0-78.0); Platelet Count 187 K/mcL (140-440); RBC 3.88 M/mcL (4.63-6.08); Red Cell Distribution Width 13.1 % (11.5-14.5); WBC 6.9 K/mcL (4.5-11.0)
[2022-10-22 07:16] LABS: ALT/SGPT 18 U/L (<40); AST/SGOT 31 U/L (<40); Albumin 3.6 gm/dL (3.2-5.2); Albumin/Globulin Ratio 1.3 (1.0-2.3); Alkaline Phosphatase 65 U/L (39-117); Bilirubin,Direct < 0.2 mg/dL (0-0.3); Bilirubin,Total 0.4 mg/dL (0.1-1.0); Blood Urea Nitrogen 15 mg/dL (8-23); Calcium 8.8 mg/dL (8.6-10.4); Carbon Dioxide 28 mmol/L (22-30); Chloride 100 mmol/L (96-108); Globulin 2.7 gm/dL (2.2-3.7); Glomerular Filtration Rate 100; Glucose 110 mg/dL (70-105); Lactate Dehydrogenase 210 U/L (135-225); Phosphorous 3.8 mg/dL (2.5-4.5); Triglycerides 125 mg/dL (<150); Uric Acid 5.3 mg/dL (2.5-8.0)
[2022-10-22] MEDS: INSULIN LISPRO 1 UNIT/0.01 ML UNIT SQ SCH (07:20)
--- NOTE | 2022-10-22 07:43 | Discharge Summary ---
Discharge Provider Provider IMPORTANT FOLLOW-UP INFORMATION FOR PCP: Patient information: Note initiated : 10/22/22 at 7:40 am Service Date, if different from initiated Date: [] Patient: Clifford Herbert 62 y/o M admitted on 10/18/22 for weakness. Chief Complaint: [] Date of admission: 10/18/22 17:35 Discharge date: 10/22/22 Primary care physician: Jordon Clark DO Consults: 10/18/22 Consult to Physician [CONS] Stat Comment: Consulting Provider: Ferdinand Myles Reason For Exam: Physician to Consult 10/18/22 13:57 Consult to Physician [CONS] Stat Comment: Consulting Provider: Telestroke-Broussard Reason For Exam: Physician to Consult COURSE Hospital Course Hospital course: Discharge diagnosis * Severe sepsis secondary to left lower extremity cellulitis, clinically improving on antibiotic coverage Rocephin/vancomycin. Cultures negative so far. Transition to oral third-generation cephalosporin, discharging home with continued outpatient follow-up with PCP * Left lower EXTR cellulitis/chronic wounds/venous stasis, negative US DVT. Continue diuretics/follow-up with outpatient lymphedema clinic * Acute encephalopathy/but ruled out with negative MRI/CT angiogram head neck and resolution of symptoms * DM type II sliding-scale insulin/BG diet * History of CAD on aspirin, statin, beta-tania, isosorbide, echocardiogram EF 70% * Hypertension, systolics at goal, ARB/Norvasc on hold due to sepsis * HLD on statin * Chronic back pain on opioids * History of CYNTHIA not on CPAP Brief hospital course Mr. Herbert is a 62 year old male with multiple comorbidities who presented to the emergency department for concern of a stroke. In the emergency department, the patient underwent an initial stroke work-up with noncontrast CT head, CTA head and neck which was unremarkable. The patient was found to be septic secondary to left lower extremity cellulitis. He was started on IV fluid and IV antibiotics, hospital medicine was consulted for admission. 10/19 Patient had fevers overnight, hemodynamically stable with soft BP, leukocytosis improving, lactic acid normal. Cellulitis improved since admission. Reduced home beta-tania, Imdur, holding home amlodipine, hydralazine, losartan. Continues on vancomycin IV and ceftriaxone. Blood cultures pending. NT proBNP elevated at 940, urine protein creatinine ratio was normal. Left lower extremity venous duplex was negative for DVT in thigh region, the calf veins were not visualized. Transthoracic echocardiogram ordered. 10/20 The patient is alert and oriented today, mild facial droop noted. MRI brain ordered. Cellulitis improving on antibiotics. Transthoracic echocardiogram report pending. The patient did not tolerate CPAP well overnight. 10/21-patient doing a lot better. WBC down to 7.5, cultures negative so far, lower EXTR lymphedema/cellulitis much improved, potassium 3.2 on replacement, phosphorus 3.1 improved with replacement. Cultures negative so far. Stable hemodynamics. MRI brain unremarkable for acute process, echocardiogram normal EF, Doppler US lower extremity no evidence of PT OT angiogram head neck normal exam. 10/22-patient doing well. No overnight events. No concerns per staff. Feels a lot better. Lower extremity swelling redness much improved. Requesting discharge. Discharge diagnosis: . Time Spent with Patient Time attestation: Total time spent providing and/or coordinating discharge services: Time spent: Greater than 30 minutes EXAM Constitutional Vitals: Temp Pulse Resp BP Pulse Ox O2 Del Method O2 Flow Rate 98.1 F 78 16 155/85 96 2 10/22/22 03:10 10/22/22 03:10 10/22/22 03:10 10/22/22 03:10 10/22/22 03:10 10/22/22 03:10 10/20/22 00:01 alert oriented Nonlabored breathing Lower EXTR lymphedema/erythema much improved No anxiety Discharge Data Data Completed and Pending Labs on day of discharge: Labs from last 24 hours 10/22/22 10/22/22 10/21/22 05:32 05:32 08:28 WBC 6.9 RBC 3.88 L Hgb 11.8 L Hct 34.5 L MCV 88.9 MCH 30.4 MCHC 34.2 RDW 13.1 Plt Count 187 MPV 9.6 Immature Gran % (Auto) 0.4 Neut % (Auto) 64.8 Lymph % (Auto) 14.6 L [place] % (Auto) 11.9 Eos % (Auto) 7.7 H Baso % (Auto) 0.6 Lymph # (Auto) 1.01 L [place] # (Auto) 0.82 Eos # (Auto) 0.53 Baso # (Auto) 0.04 Immature Gran # 0.03 Absolute Neutrophils 4.47 Sodium 137 Potassium 3.3 Chloride 100 Carbon Dioxide 28 Anion Gap 9.0 BUN 15 Creatinine 0.7 GFR Calculation 100 Glucose 110 H Uric Acid 5.3 Calcium 8.8 Phosphorus 3.8 Magnesium 1.8 Total Bilirubin 0.4 Direct Bilirubin < 0.2 GGT 49 AST 31 ALT 18 Alkaline Phosphatase 65 Lactate Dehydrogenase 210 Total Protein 6.3 Albumin 3.6 Globulin 2.7 Albumin/Globulin Ratio 1.3 Triglycerides 125 Vancomycin Trough 16.6 10/21/22 05:31 WBC RBC Hgb Hct MCV MCH MCHC RDW Plt Count MPV Immature Gran % (Auto) Neut % (Auto) Lymph % (Auto) [place] % (Auto) Eos % (Auto) Baso % (Auto) Lymph # (Auto) [place] # (Auto) Eos # (Auto) Baso # (Auto) Immature Gran # Absolute Neutrophils Sodium 140 Potassium 3.2 L Chloride 104 Carbon Dioxide 27 Anion Gap 9.0 BUN 19 Creatinine 0.7 GFR Calculation 100 Glucose 102 Uric Acid 5.1 Calcium 8.7 Phosphorus 3.1 Magnesium 1.8 Total Bilirubin 0.3 Direct Bilirubin < 0.2 GGT 44 AST 39 ALT 17 Alkaline Phosphatase 67 Lactate Dehydrogenase 204 Total Protein 5.8 L Albumin 3.2 Globulin 2.6 Albumin/Globulin Ratio 1.2 Triglycerides 129 Vancomycin Trough Preliminary micro results at discharge 10/18/22 14:48 Blood Culture - Preliminary Blood 10/18/22 14:30 Blood Culture - Preliminary Blood Discharge Plan Patient/Caregiver Discharge Instructions Activity: increase activity as tolerated Diet: Consistent Carbohydrate Activity Restrictions/Additional Instructions: Continue oral cefdinir for additional 5 days Limb elevation Diuretics Follow-up PCP in 5 to 7 days Outpatient lymphedema clinic follow-up Prescriptions: New cefdinir 300 mg capsule 300 mg PO BID Qty: 10 0RF Continued atorvastatin 20 mg tablet 20 mg PO QPM Qty: 90 3RF (DME) nebulizer accessories Kit See Rx Instructions .ROUTE .MEDSUPPLY Qty: 1 0RF Rx Instructions: Use daily as needed ipratropium-albuterol 0.5 mg-3 mg(2.5 mg base)/3 mL solution for nebulization 3 ml INHALATION Q6H PRN (Reason: shortness of breath or wheezing) Qty: 180 3RF (DME) Compression stockings 20 mmHg Qty: 2 0RF Rx Instructions: 20 mmHg compression hose, appropriate size for patient hydralazine 25 mg tablet 25 mg PO BID Qty: 180 3RF albuterol sulfate 90 mcg/actuation HFA aerosol inhaler 2 puff inhalation Q4-6HP PRN (Reason: Wheezing) Qty: 8.5 5RF (DME) Diabetic shoes See Rx Instructions .Route .MEDSUPPLY Qty: 1 0RF Rx Instructions: As directed, order to [facility] tamsulosin 0.4 mg capsule 0.8 mg PO QDAY Qty: 60 11RF metformin 500 mg tablet extended release 24 hr 1,000 mg PO QAM Qty: 180 3RF diclofenac sodium 75 mg tablet,delayed release (DR/EC) 75 mg PO BID Qty: 180 1RF oxycodone-acetaminophen 7.5-325 mg tablet 1 tab PO Q4H PRN (Reason: pain) Qty: 168 0RF gabapentin 300 mg capsule 600 mg PO TID Qty: 180 5RF isosorbide mononitrate 60 mg tablet extended release 24 hr 60 mg PO BID Label Comments: stated takes two tabs in Am, unsure if the dose is 30 =60mg or 60= 120mg Rx Instructions: swallow whole with glass of water; do not crush/chew/dissolve/cut/break potassium chloride 20 mEq tablet,ER particles/crystals 20 meq PO QDAY Label Comments: with food (DME) nebulizer machine Qty: 1 0RF Rx Instructions: As directed amlodipine 10 mg tablet 10 mg PO QDAY losartan 100 mg tablet 100 mg PO QDAY ipratropium bromide 0.02 % solution 0.5 mg inhalation Q6H PRN (Reason: shortness of breath or wheezing) Qty: 75 0RF aspirin 81 MG tablet,delayed release (DR/EC) 81 mg PO DAILY metoprolol tartrate 50 mg tablet 50 mg PO BID famotidine 40 mg Tablet 40 mg PO QDAY furosemide 20 mg tablet 20 mg PO QDAY Follow Up Plan Follow up with: Jordon Clark DO [Primary Care Provider] - Patient Disposition: Home, Self-Care Prognosis: Serious Rehab Potential: Fair I certify that the patient requires SNF services: No Overall status at discharge: patient is progressing back to baseline Discharge Orders: Discharge Order (Routine); Ordered 10/22/22 Ordered By: Andres Rodriguez
[2022-10-22] MEDS: cefTRIAXone 2 GM in DEXTROSE 5% IN WATER 50 ML IV SCH (08:32)
[2022-10-22] MEDS: ASPIRIN 81 MG TAB.CHEW PO SCH (08:33)
[2022-10-22] MEDS: TAMSULOSIN 0.4 MG CAPSULE PO SCH (08:33)
[2022-10-22] MEDS: FAMOTIDINE 20 MG TABLET PO SCH (08:33)
[2022-10-22] MEDS: ISOSORBIDE MONONITRATE 30 MG TAB.XL.24H PO SCH (08:34)
[2022-10-22] MEDS: DOCUSATE SODIUM 100 MG CAPSULE PO SCH (08:34)
[2022-10-22] MEDS: GABAPENTIN 300 MG CAPSULE PO SCH (08:34)
[2022-10-22] MEDS: ENOXAPARIN 40 MG/0.4 ML SYRINGE SQ SCH (08:34)
[2022-10-22] MEDS: METOPROLOL TARTRATE 25 MG TABLET PO SCH (08:35)
[2022-10-22] MEDS: VANCOMYCIN 1,500 MG in 0.9 % SODIUM CHLORIDE 500 ML IV SCH (09:05)
== END 2022-10-22 10:50 | disposition home or self-care (01) | DRG 871 ==
LOC: ED 13:41 → ICU 17:35 → MEDSUR 10-20 12:50
PROVIDERS: ADMIT Internal Medicine; ATTEND Internal Medicine

== ENCOUNTER 2023-01-05 09:52 | Inpatient (IN) ==
[2023-01-05] MEDS ORDERED: 0.9 % SODIUM CHLORIDE 1,000 ML IV ONE ×2 (10:02→11:43)
[2023-01-05] MEDS ORDERED: ACETAMINOPHEN 325 MG TABLET PO ONE (10:03)
--- NOTE | 2023-01-05 10:14 | Emergency Department Note ---
Weakness HPI General Chief complaint: Shortness of Breath/Dyspnea Stated complaint: shortness of breath Time Seen by Provider: 01/05/23 09:58 Source: patient and EMS Mode of arrival: EMS Limitations: physical limitation History of Present Illness HPI Narrative: Narrative: The patient presents with a couple days of generalized weakness. He denies any diarrhea or vomiting. He denies any cough. He does feel slightly short of breath. He denies chest or abdominal pain. He complains of generalized weakness. He denies focal weakness. He was found by paramedics to be incontinent of urine. Patient is unaware that he has a fever. Related Data Home Medications Medication Instructions Recorded Confirmed isosorbide mononitrate 60 mg 60 mg PO BID 07/13/15 11/04/22 tablet,extended release 24 hr potassium chloride 20 mEq 20 meq PO QDAY 07/13/15 11/04/22 tablet,extended release(part/cryst) aspirin 81 mg tablet,delayed 81 mg PO DAILY 01/18/19 11/04/22 release amlodipine 10 mg tablet 10 mg PO QDAY 01/08/22 11/04/22 losartan 100 mg tablet 100 mg PO QDAY 01/08/22 11/04/22 furosemide 20 mg tablet 20 mg PO QDAY 04/17/22 11/04/22 famotidine 40 mg tablet 40 mg PO QDAY 10/18/22 11/04/22 metoprolol tartrate 50 mg tablet 50 mg PO BID 10/18/22 11/04/22 Previous Rx's Medication Instructions Recorded atorvastatin 20 mg tablet 20 mg PO QPM #90 tabs 05/24/18 nebulizer machine #1 ea 11/24/19 nebulizer accessories #1 ea 02/02/20 ipratropium 0.5 mg-albuterol 3 mg 3 ml inhalation Q6H PRN shortness 10/23/20 (2.5 mg base)/3 mL nebulization of breath or wheezing #180 mL soln Compression stockings #2 ea 12/31/20 ipratropium bromide 0.02 % 0.5 mg (2.5 mL) inhalation Q6H PRN 02/18/22 solution for inhalation shortness of breath or wheezing #75 mL Diabetic shoes #1 ea 08/07/22 tamsulosin 0.4 mg capsule 0.8 mg PO QDAY BPH #60 caps 08/26/22 metformin 500 mg tablet,extended 1,000 mg PO QAM #180 tabs 09/17/22 release 24 hr diclofenac sodium 75 mg 75 mg PO BID #180 tabs 09/23/22 tablet,delayed release gabapentin 300 mg capsule 600 mg PO TID #180 caps 10/14/22 albuterol sulfate 90 mcg/actuation 2 puff inhalation Q4-6HP PRN 11/12/22 aerosol inhaler Wheezing #8.5 grams hydralazine 25 mg tablet 25 mg PO BID #180 tabs 12/17/22 oxycodone-acetaminophen 7.5 mg-325 1 tab PO Q4H PRN pain #168 tabs 12/30/22 mg tablet Allergies Allergy/AdvReac Type Severity Reaction Status Date / Time codeine Allergy Intermediate Rash Verified 01/05/23 09:59 latex Allergy Intermediate Unknown Verified 01/05/23 09:59 morphine Allergy Intermediate Rash Verified 01/05/23 09:59 Review of Systems ROS ROS Narrative: Narrative: All systems ED: reviewed and negative except as stated. PFS Narrative Patient History Narrative: Narrative: Medical/Surgical/Family History All Active Problems (Updated 01/05/23 @ 13:03 by Pedro Luis Mitchell MD) Sepsis (Acute) Acute UTI (Acute) Lymphedema of left lower extremity (Acute) Sepsis (Acute) Ulcer of left fifth toe due to diabetes mellitus (Acute) Anxiety disorder (Chronic) COPD (chronic obstructive pulmonary disease) (Chronic) CAD (coronary artery disease) (Chronic) Depressive disorder (Chronic) Diabetes mellitus, type II (Chronic) Fatigue (Chronic) Gastroesophageal reflux (Chronic) Heartburn (Chronic) Hyperlipidemia (Chronic) Hypertension, essential (Chronic) Insomnia (Chronic) Joint pain (Chronic) Low back pain (Chronic) Muscle ache (Chronic) Obesity (Chronic) Osteoarthritis (Chronic) Osteoarthritis, shoulder (Chronic) Osteoporosis (Chronic) Rheumatoid arthritis (Chronic) Sciatica (Chronic) Shoulder impingement syndrome (Chronic) Sleep apnea (Chronic) History of colonoscopy (Chronic) Intentional weight loss (Chronic) Orthopnea (Chronic) Swelling (Chronic) Neck Pain (Chronic) Bilateral shoulder pain (Chronic) Colon adenomas (Chronic) Spinal stenosis (Chronic) Foraminal stenosis of lumbar region (Chronic) Gastroparesis (Chronic) Metabolic syndrome (Chronic) Joint pain (Chronic) Recurrent bacterial cystitis (Acute) Morbid obesity with BMI of 40.0-44.9, adult (Chronic) Major depressive disorder, recurrent severe without psychotic features (Chronic) 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) Pain and swelling of left lower extremity (Acute) Chronic use of opiate for therapeutic purpose (Chronic) Acute exacerbation of chronic obstructive airways disease (Acute) Respiratory distress (Acute) Dental infection (Acute) Contusion of hand (Acute) Abrasion of multiple sites of left upper arm (Acute) Neck injury (Acute) Cervical disc disorder with radiculopathy (Acute) Hx of fusion of cervical spine (Acute) Lower urinary tract symptoms (LUTS) (Acute) Prostate cancer screening (Acute) H/O cervical spine surgery (Acute) H/O cervical discectomy (Chronic ~11/02/20) Cellulitis (Acute) Bilateral lower extremity edema (Acute) Acute dyspnea (Acute) Ulcer of left heel (Acute) Cervical disc disease (Chronic) BPH loc w urin obs/LUTS (Acute) Fall (Acute) Generalized weakness (Acute) Multiple falls (Acute) COVID-19 virus infection (Acute) Obesity with alveolar hypoventilation and body mass index (BMI) of 40 or greater (Acute) Cough (Acute) Pharyngitis (Acute) Elevated PSA, less than 10 ng/ml (Acute) Medical History Anxiety disorder Bilateral shoulder pain CAD (coronary artery disease) 1998 chronically occluded RCA. No anginal symptoms currently. Medically optimized. Follows with cardiology. Cellulitis of left lower extremity Responded to Bactrim, after failing Keflex Chest pain Pain at rest. Nitro improved pain. Chronic use of opiate for therapeutic purpose Colon adenomas 02/10/17-3 year follow-up COPD (chronic obstructive pulmonary disease) Mild without hypoxia Uses duo nebs as needed Cystitis Dental abscess Dental infection Depressive disorder Diabetes mellitus, type II Since 02/14/2015 Well-controlled on metformin ER 1000 mg daily. Diabetic foot exam today. No numbness, but does have a lot of callus. Palpable pulses. He follows with podiatry about every 2 months. Weight loss, exercise, and diabetic diet recommended. Diabetic eye exam up-to-date Fatigue Foraminal stenosis of lumbar region Worst at L4-S1 Gastroesophageal reflux Gastroparesis On EGD 12/08/17 Greater trochanteric bursitis of right hip Heartburn Hyperlipidemia Hypertension, essential Typically well controlled on hydralazine 25 mg twice daily, isosorbide 60 mg twice daily, metoprolol tartrate 100 mg daily, losartan 100 mg daily, hydrochlorothiazide 25 mg daily, and amlodipine 10 mg daily A little bit low today. He has been monitoring blood pressure at home, but forgot to bring his logs in Insomnia Intentional weight loss 31 pounds since August Joint pain Joint pain Leukocytosis Low back pain Mild pain radiating to limbs, but pain is mostly in the back. Major depressive disorder, recurrent severe without psychotic features Metabolic syndrome Morbid obesity with BMI of 40.0-44.9, adult Muscle ache Myocardial infarction acute 1998 Neck injury Neck Pain Prior fusion Obesity Onychomycosis nails are cut very short Orthopnea Osteoarthritis Osteoarthritis cervical spine 1991 ACDF Osteoarthritis, shoulder LT LOC Osteoporosis LS Pain and swelling of left lower extremity likely cellulitis Panic disorder with agoraphobia Recurrent bacterial cystitis Rheumatoid arthritis H/O Right flank pain Sciatica right Sepsis Shoulder impingement syndrome bilateral Sleep apnea CPAP not tolerated Spinal stenosis Worst at L2-3 Swelling lower extremities likely due to amlodipine Tobacco abuse Former smoker Urinary tract infection UTI (urinary tract infection) Surgical History Abnormal findings on esophagogastroduodenoscopy (EGD) 12/08/17 Gastroparesis. Dysphagia. Suspect esophageal dysmotility. H/O cervical discectomy (~11/02/20) History of colonoscopy per phone call from GI clinic colonoscopy due 12/31/2014. 02/10/17 adenomas. 3 year follow up. History of fusion of cervical spine [address] Kemp History of neck surgery 11/2020 Family History Father Anemia Rheumatoid arthritis Dementia Family history of arthritis Gout Essential hypertension Acute myocardial infarction Osteoarthritis Mother Chronic Kidney Disease Family history of arthritis Mother Family history of arthritis Essential hypertension Disorder of liver Migraine Other Bilateral shoulder pain Colon adenomas Foraminal stenosis of lumbar region Greater trochanteric bursitis of right hip Neck Pain Onychomycosis Orthopnea Sepsis Spinal stenosis Swelling Social History Smoking Status: Former smoker Alcohol Intake Frequency: does not drink Substance Use: former substance user and marijuana Exam Narrative Narrative: Narrative: General Limitations: physical limitation General appearance: Present alert Head Head: Present atraumatic and normal inspection Eye Eye: Present normal appearance, PERRL and EOMI ENT ENT: Present normal oropharynx and mucous membranes dry; Absent mucous membranes moist Neck Neck: Present normal inspection, full ROM and trachea midline; Absent meningis mus Chest Chest: Present normal inspection and symmetric chest wall rise Respiratory Respiratory: Present normal lung sounds bilaterally; Absent respiratory distress Cardiovascular Cardiovascular: Present normal rhythm, tachycardia and other (+2 pulses all 4 extremities); Absent regular rate Adbominal Abdominal: Present soft and normal bowel sounds; Absent distention, tenderness, guarding or rebound Extremities Extremities: Present normal inspection, full ROM and pedal edema Back Back: Present full ROM; Absent CVA tenderness (R) or CVA tenderness (L) Neurological Neurological: Present alert and oriented X3; Absent CN II-XII intact (At rest, patient appears to have a very mild left lower facial droop. However, when I asked him to smile or move his facial muscles, this asymmetry disappears.) or motor sensory deficit Psychiatric Psychiatric: Present normal affect and normal mood Skin Skin: Present warm (WNL) and dry Course Consultations Consultation #1: I spoke to the hospitalist, Dr. Ramos. He agreed to admit. Time: 13:03 Vital Signs Vital signs: Vital Signs Temperature 101.6 F H 01/05/23 09:55 Pulse Rate 105 H 01/05/23 09:55 Respiratory Rate 28 H 01/05/23 09:55 Blood Pressure 129/106 01/05/23 09:55 Pulse Oximetry (%) 96 01/05/23 09:55 Oxygen Delivery Method Room Air 01/05/23 09:55 Temperature 101.6 F H 01/05/23 10:05 Pulse Rate 96 H 01/05/23 12:10 Respiratory Rate 22 01/05/23 12:10 Blood Pressure 130/65 01/05/23 12:02 Pulse Oximetry (%) 96 01/05/23 12:10 Oxygen Delivery Method Room Air 01/05/23 09:55 [facility] Narrative Medical decision making narrative: Narrative: The patient presents with generalized weakness. He is found to have SIRS cri teria and to have a fever. Infectious etiology is definitely considered. Urinary pathology would be the most likely. Occult pulmonary pathology is possible. I doubt central nervous system abnormality even though he does have the mild facial droop because it does disappear upon active movement of his face. Intra-abdominal pathology is unlikely given lack of any GI symptoms or abdominal pain. Plan to give a liter of fluid and a dose of acetaminophen. We will obtain appropriate labs and imaging. Sepsis Sepsis Identified: Yes Time Zero: 1013 Lab Data Lab results reviewed: Yes I reviewed the patient's lab results. 01/05/23 10:16 01/05/23 10:16 Labs: Lab Results 01/05/23 01/05/23 01/05/23 Range/Units 10:16 10:16 10:18 WBC 23.8 H (4.5-11.0) K/mcL RBC 4.85 (4.63-6.08) M/mcL Hgb 14.6 (13.7-17.5) g/dL Hct 44.4 (40.1-51.0) % POC Hct (41-55) MCV 91.5 (80.0-100.0) fL MCH 30.1 (26.0-34.0) pg MCHC 32.9 (31.0-36.0) g/dL RDW 13.0 (11.5-14.5) % Plt Count 197 (140-440) K/mcL MPV 10.7 (8.8-12.5) fL Immature Gran % (Auto) 1.0 H (0.0-0.5) % Neut % (Auto) 86.8 H (38.0-78.0) % Lymph % (Auto) 3.8 L (15.5-49.0) % Centre % (Auto) 8.1 (1.0-12.0) % Eos % (Auto) 0 (0.0-7.0) % Baso % (Auto) 0.3 (0.0-2.0) % Lymph # (Auto) 0.91 L (1.50-4.80) K/mcL Centre # (Auto) 1.93 H (0.10-0.90) K/mcL Eos # (Auto) 0.01 (0.00-0.70) K/mcL Baso # (Auto) 0.06 (0.00-0.30) K/mcL Immature Gran # 0.25 H (0.00-0.05) K/mcl Absolute Neutrophils 20.65 H (1.80-8.00) K/mcL POC VBG pH 7.42 (7.32-7.42) POC VBG pCO2 at Temp 41.9 (41-51) POC VBG pO2 26 (25-40) POC VBG HCO3 27.0 (24-28) POC VBG Total CO2 28.0 (25-29) POC Venous O2 Sat 50.0 (40-70) POC VBG Base Excess 2.0 (-2-2) VBG Lactic Acid 2.2 H (0.5-2) POC Sodium (133-145) Sodium 136 (133-145) mmol/L POC Potassium (3.3-5.1) Potassium 4.2 (3.3-5.1) mmol/L POC Chloride (96-108) Chloride 98 (96-108) mmol/L Carbon Dioxide 28 (22-30) mmol/L POC Total CO2 (22-30) Anion Gap 10.0 (8.0-16.0) POC BUN (6-20) BUN 12 (8-23) mg/dL Creatinine 0.8 (0.7-1.2) mg/dL POC Creatinine (0.6-1.2) GFR Calculation 95 Glucose 125 H (70-105) mg/dL POC Glucose (70-105) Calcium 9.4 (8.6-10.4) mg/dL POC WB Ioniz Calcium (1.16-1.32) Total Bilirubin 0.9 (0.1-1.0) mg/dL AST 10 (<40) U/L ALT 8 (<40) U/L Alkaline Phosphatase 64 (39-117) U/L NT-Pro-B Natriuret Pep 760.7 H (<125.0) pg/mL Total Protein 7.3 (5.9-8.4) gm/dL Albumin 4.1 (3.2-5.2) gm/dL Globulin 3.2 (2.2-3.7) gm/dL Albumin/Globulin Ratio 1.3 (1.0-2.3) Urine Color Urine Appearance (Clear) Urine pH (5.0-9.0) Ur Specific [place] (1.000-1.035) Urine Protein (Negative) mg/dL Urine Glucose (UA) (Negative) mg/dL Urine Ketones (Negative) mg/dL Urine Occult Blood (Negative) mg/dL Urine Nitrate (Negative) Urine Bilirubin (Negative) mg/dL Urine Urobilinogen mg/dL Ur Leukocyte Esterase (Negative) /uL Urine RBC (0-3) /hpf Urine WBC (0-4) /hpf Ur Squamous Epith Cells (0-4) /hpf Ur Transition Epith Cell (0-2) /hpf Urine Bacteria (0) /hpf Urine Mucus (None) /hpf Urine Sperm (Absent) /hpf Ur Culture Indicated? POC Troponin I (0.00-0.08) 01/05/23 01/05/23 01/05/23 Range/Units 10:21 10:23 10:41 WBC (4.5-11.0) K/mcL RBC (4.63-6.08) M/mcL Hgb (13.7-17.5) g/dL Hct (40.1-51.0) % POC Hct 44.0 (41-55) MCV (80.0-100.0) fL MCH (26.0-34.0) pg MCHC (31.0-36.0) g/dL RDW (11.5-14.5) % Plt Count (140-440) K/mcL MPV (8.8-12.5) fL Immature Gran % (Auto) (0.0-0.5) % Neut % (Auto) (38.0-78.0) % Lymph % (Auto) (15.5-49.0) % Centre % (Auto) (1.0-12.0) % Eos % (Auto) (0.0-7.0) % Baso % (Auto) (0.0-2.0) % Lymph # (Auto) (1.50-4.80) K/mcL Centre # (Auto) (0.10-0.90) K/mcL Eos # (Auto) (0.00-0.70) K/mcL Baso # (Auto) (0.00-0.30) K/mcL Immature Gran # (0.00-0.05) K/mcl Absolute Neutrophils (1.80-8.00) K/mcL POC VBG pH (7.32-7.42) POC VBG pCO2 at Temp (41-51) POC VBG pO2 (25-40) POC VBG HCO3 (24-28) POC VBG Total CO2 (25-29) POC Venous O2 Sat (40-70) POC VBG Base Excess (-2-2) VBG Lactic Acid (0.5-2) POC Sodium 138 (133-145) Sodium (133-145) mmol/L POC Potassium 4.2 (3.3-5.1) Potassium (3.3-5.1) mmol/L POC Chloride 97 (96-108) Chloride (96-108) mmol/L Carbon Dioxide (22-30) mmol/L POC Total CO2 31.0 H (22-30) Anion Gap (8.0-16.0) POC BUN 13 (6-20) BUN (8-23) mg/dL Creatinine (0.7-1.2) mg/dL POC Creatinine 0.8 (0.6-1.2) GFR Calculation Glucose (70-105) mg/dL POC Glucose 140 H (70-105) Calcium (8.6-10.4) mg/dL POC WB Ioniz Calcium 1.17 (1.16-1.32) Total Bilirubin (0.1-1.0) mg/dL AST (<40) U/L ALT (<40) U/L Alkaline Phosphatase (39-117) U/L NT-Pro-B Natriuret Pep (<125.0) pg/mL Total Protein (5.9-8.4) gm/dL Albumin (3.2-5.2) gm/dL Globulin (2.2-3.7) gm/dL Albumin/Globulin Ratio (1.0-2.3) Urine Color Yellow Urine Appearance Hazy A (Clear) Urine pH 7.0 (5.0-9.0) Ur Specific [place] 1.018 (1.000-1.035) Urine Protein 100 A (Negative) mg/dL Urine Glucose (UA) Negative (Negative) mg/dL Urine Ketones Negative (Negative) mg/dL Urine Occult Blood 0.03 (Negative) mg/dL Urine Nitrate Negative (Negative) Urine Bilirubin Negative (Negative) mg/dL Urine Urobilinogen 2.0 A mg/dL Ur Leukocyte Esterase 250 A (Negative) /uL Urine RBC 9 H (0-3) /hpf Urine WBC 165 H (0-4) /hpf Ur Squamous Epith Cells 3 (0-4) /hpf Ur Transition Epith Cell < 1 (0-2) /hpf Urine Bacteria None (0) /hpf Urine Mucus Many A (None) /hpf Urine Sperm Present A (Absent) /hpf Ur Culture Indicated? yes POC Troponin I < 0.02 (0.00-0.08) ED POC Tests ED POC Tests: ANUP - Influenza A Negative ANUP - Influenza B Negative ANUP - SARS Antigen Negative Radiology Data Radiology results reviewed: Yes I reviewed the patient's radiology results. EKG Data EKG #1: EKG attestation: Yes I reviewed and interpreted this EKG. and Yes There are no EKG findings of acute coronary syndrome EKG results narrative: Sinus, rate 100, normal axis, QTc 431, CA 240, narrow complex QRS, no acute ST or T changes concerning for acute infarction or ischemia CC TIME Critical Care Time Critical Care Time: Yes Total Critical Care Time: 35 Attestation: Without intervention, patient may have had a deleterious outcome Discharge Plan Patient/Caregiver Discharge Instructions Pt seen by ELECTRIC CUTTER OPERATOR/PA only: No Clinical Impression: Acute UTI Sepsis Qualifiers: Sepsis type: sepsis due to unspecified organism Sepsis acute organ dysfunction status: without acute organ dysfunction Qualified Code(s): A41.9 - Sepsis, unspecified organism Patient Disposition: Xfer As Inpt ([facility]) Condition: Fair Follow up with: Jordon Clark DO [Primary Care Provider] - Prescriptions: No Action atorvastatin 20 mg tablet 20 mg PO QPM Qty: 90 3RF (DME) nebulizer accessories Kit See Rx Instructions .ROUTE .MEDSUPPLY Qty: 1 0RF Rx Instructions: Use daily as needed ipratropium-albuterol 0.5 mg-3 mg(2.5 mg base)/3 mL solution for nebulization 3 ml INHALATION Q6H PRN (Reason: shortness of breath or wheezing) Qty: 180 3RF (DME) Compression stockings 20 mmHg Qty: 2 0RF Rx Instructions: 20 mmHg compression hose, appropriate size for patient (DME) Diabetic shoes See Rx Instructions .Route .MEDSUPPLY Qty: 1 0RF Rx Instructions: As directed, order to [facility] tamsulosin 0.4 mg capsule 0.8 mg PO QDAY Qty: 60 11RF metformin 500 mg tablet extended release 24 hr 1,000 mg PO QAM Qty: 180 3RF diclofenac sodium 75 mg tablet,delayed release (DR/EC) 75 mg PO BID Qty: 180 1RF gabapentin 300 mg capsule 600 mg PO TID Qty: 180 5RF albuterol sulfate 90 mcg/actuation HFA aerosol inhaler 2 puff inhalation Q4-6HP PRN (Reason: Wheezing) Qty: 8.5 5RF hydralazine 25 mg tablet 25 mg PO BID Qty: 180 3RF oxycodone-acetaminophen 7.5-325 mg tablet 1 tab PO Q4H PRN (Reason: pain) Qty: 168 0RF isosorbide mononitrate 60 mg tablet extended release 24 hr 60 mg PO BID Patient Comments: stated takes two tabs in Am, unsure if the dose is 30 =60mg or 60= 120mg Rx Instructions: swallow whole with glass of water; do not crush/chew/dissolve/cut/break potassium chloride 20 mEq tablet,ER particles/crystals 20 meq PO QDAY Patient Comments: with food (DME) nebulizer machine Qty: 1 0RF Rx Instructions: As directed amlodipine 10 mg tablet 10 mg PO QDAY losartan 100 mg tablet 100 mg PO QDAY ipratropium bromide 0.02 % solution 0.5 mg inhalation Q6H PRN (Reason: shortness of breath or wheezing) Qty: 75 0RF aspirin 81 MG tablet,delayed release (DR/EC) 81 mg PO DAILY metoprolol tartrate 50 mg tablet 50 mg PO BID famotidine 40 mg Tablet 40 mg PO QDAY furosemide 20 mg tablet 20 mg PO QDAY
[2023-01-05 10:35] LABS: POC Calcium, Ionized 1.17 (1.16-1.32); POC Creatinine 0.8 (0.6-1.2); POC Potassium 4.2 (3.3-5.1)
--- NOTE | 2023-01-05 11:11 | XRay Report ---
INDICATION: sob TECHNIQUE: AP semiupright chest x-ray COMPARISON: Previous chest x-rays dated 10/18/2022, 05/05/2022, 02/18/2022 FINDINGS: Lungs:Lungs are negative. No focal pulmonary parenchymal infiltrate or mass Heart, vascular:No significant cardiomegaly. Pulmonary vascularity is normal. No pulmonary edema or pulmonary congestion Mediastinum, jes:No mediastinal widening. No hilar mass Pleura:No pleural fluid. No pleural-based mass or calcification Skeletal:Negative. IMPRESSION: 1. Negative AP chest x-ray 2. No significant interval change Interpreted and Authenticated by: Jordon Duvall 01/05/23
--- NOTE | 2023-01-05 11:13 | Cat Scan Report ---
INDICATION: weak COMPARISON: Previous brain CT scan dated 10/18/2022. Previous limited MRI scan dated 10/20/2022 TECHNIQUE: Axial noncontrast-enhanced images through the brain. Sagittally and coronally reformatted images. FINDINGS: Cerebral hemispheres:Negative. No intra-axial abnormality. No intra-axial hematoma. No localized mass effect. There is cerebral atrophy with mild ventriculomegaly. This is unchanged. No focal intra-axial abnormality. No interval change. Brainstem and cerebellum:No intra-axial abnormality Extra-axial:No acute hemorrhage. No subdural or epidural hematoma. No subarachnoid hemorrhage. Basilar cisterns are normal Calvarial:No calvarial fracture. No lytic lesion Temporal bones are negative. No destructive lesions Soft tissue, orbits, sinuses:Mucoperiosteal thickening within ethmoid sinuses bilaterally. Appearance is consistent with ethmoiditis IMPRESSION: 1. No acute intracranial abnormality. No intracranial hemorrhage 2. Mild inflammatory disease within the ethmoid sinuses The exam was performed using radiation dose optimization techniques including, but not limited to, automated exposure control, adjustment of the mA and/or kV according to patient size and use of iterative reconstruction technique. Interpreted and Authenticated by: Jordon Duvall 01/05/23
[2023-01-05 11:27] LABS: Appearance,Urine HAZY (Clear); Bilirubin,Urine Negative (Negative); Color,Urine YELLOW; Culture Indicated,Urine yes; Glucose,Urine (UA) Negative (Negative); Ketones,Urine Negative (Negative); Leukocyte Esterase,Urine 250 /uL (Negative); Mucus,Urine MANY /hpf; Nitrate,Urine Negative (Negative); Protein,Urine 100 mg/dL (Negative); Specific Gravity,Urine 1.018 (1.000-1.035); Sperm,Urine PRESENT /hpf (Absent); Urine Blood 0.03 mg/dL (Negative); Urine RBC 9 /hpf (0-3); Urine Squamous Epithelial Cell 3 /hpf (0-4); Urine Transitional Epi Cells < 1 /hpf (0-2); Urine WBC 165 /hpf (0-4)
[2023-01-05 11:28] LABS: Basophils # (Auto) 0.06 K/mcL (0.00-0.30); Basophils % (Auto) 0.3 % (0.0-2.0); Eosinophils # (Auto) 0.01 K/mcL (0.00-0.70); Eosinophils % (Auto) 0 % (0.0-7.0); Hematocrit 44.4 % (40.1-51.0); Hemoglobin 14.6 g/dL (13.7-17.5); Lymphocytes # (Auto) 0.91 K/mcL (1.50-4.80); Lymphocytes % (Auto) 3.8 % (15.5-49.0); Mean Cell Volume 91.5 fL (80.0-100.0); Mean Corpuscular HGB Conc 32.9 g/dL (31.0-36.0); Mean Platelet Volume 10.7 fL (8.8-12.5); Monocytes # (Auto) 1.93 K/mcL (0.10-0.90); Monocytes % (Auto) 8.1 % (1.0-12.0); Neutrophils % (Auto) 86.8 % (38.0-78.0); Platelet Count 197 K/mcL (140-440); RBC 4.85 M/mcL (4.63-6.08); WBC 23.8 K/mcL (4.5-11.0)
[2023-01-05] MEDS ORDERED: cefTRIAXone 1 GM VIAL IV ONE ×2 (11:29→17:15)
[2023-01-05 12:01] LABS: proBNP 760.7 pg/mL (<125.0)
[2023-01-05 12:05] LABS: ALT/SGPT 8 U/L (<40); AST/SGOT 10 U/L (<40); Albumin 4.1 gm/dL (3.2-5.2); Albumin/Globulin Ratio 1.3 (1.0-2.3); Alkaline Phosphatase 64 U/L (39-117); Bilirubin,Total 0.9 mg/dL (0.1-1.0); Blood Urea Nitrogen 12 mg/dL (8-23); Calcium 9.4 mg/dL (8.6-10.4); Carbon Dioxide 28 mmol/L (22-30); Chloride 98 mmol/L (96-108); Globulin 3.2 gm/dL (2.2-3.7); Glomerular Filtration Rate 95; Glucose 125 mg/dL (70-105)
--- NOTE | 2023-01-05 14:07 | EKG ---
[facility] Test Date: 2023-01-05 Pat Name: Clifford Herbert Department: ED Room: Gender: Male Registered Nurse Post Partum: NIDA : 1960 Requested By: Pedro Luis Mitchell Order Number: [id number] Reading MD: Anu Leonard Measurements Intervals [place] Rate: 100 P: 1 OR: 240 QRS: -8 QRSD: 97 T: 24 QT: 334 QTc: 431 Interpretive Statements Sinus tachycardia Prolonged OR interval Inferior infarct, old Anteroseptal infarct, age indeterminate Abnormal ECG Electronically Signed On 01-05-2023 14:06:46 PST by Anu Leonard /store/M0/[id number]
--- NOTE | 2023-01-05 14:44 | Internal Med History&Physical ---
HPI History of Present Illness Patient information: Note initiated : 01/05/23 at 2:34 pm Service Date, if different from initiated Date: [] Patient: Clifford Herbert a 62 y/o M admitted on for shortness of breath. Chief Complaint: [] History of present illness: Mr. Herbert is a 62 year old M Presents the ED per with increased weakness. He also has malodorous urine and dysuria. Patient was last admitted in the hospital on October 18 and discharged on the for sepsis from cellulitis of lower extremities. This morning his found to be severely weak that he could not get out of bed. She noted malodorous urine. When speaking to him he complains of dysuria. Complains of headache fever chills. Denies chest pain shortness of breath nausea vomiting. In the ED is evaluated and found to have urinalysis consistent with infection. Lactate was mildly elevated 2.2. He had a leukocytosis of 23,000. Patient is mildly tachycardic and febrile in the ED. Patient also has a history of COPD does not wear oxygen but he says he needs to He may need it. He has obstructive sleep apnea has a CPAP machine but does not tolerate it. He has diabetes and is on metformin. Review of Systems: Pertinent positives as above denies nausea/vomiting/chest or abdominal pain/cough/dyspnea/diarrhea. Remaining 10 point review of system reviewed negative. PFSH PFSH All Active Problems (Updated 01/05/23 @ 13:03 by Pedro Luis Mitchell MD) Sepsis (Acute) Acute UTI (Acute) Lymphedema of left lower extremity (Acute) Sepsis (Acute) Ulcer of left fifth toe due to diabetes mellitus (Acute) Anxiety disorder (Chronic) COPD (chronic obstructive pulmonary disease) (Chronic) CAD (coronary artery disease) (Chronic) Depressive disorder (Chronic) Diabetes mellitus, type II (Chronic) Fatigue (Chronic) Gastroesophageal reflux (Chronic) Heartburn (Chronic) Hyperlipidemia (Chronic) Hypertension, essential (Chronic) Insomnia (Chronic) Joint pain (Chronic) Low back pain (Chronic) Muscle ache (Chronic) Obesity (Chronic) Osteoarthritis (Chronic) Osteoarthritis, shoulder (Chronic) Osteoporosis (Chronic) Rheumatoid arthritis (Chronic) Sciatica (Chronic) Shoulder impingement syndrome (Chronic) Sleep apnea (Chronic) History of colonoscopy (Chronic) Intentional weight loss (Chronic) Orthopnea (Chronic) Swelling (Chronic) Neck Pain (Chronic) Bilateral shoulder pain (Chronic) Colon adenomas (Chronic) Spinal stenosis (Chronic) Foraminal stenosis of lumbar region (Chronic) Gastroparesis (Chronic) Metabolic syndrome (Chronic) Joint pain (Chronic) Recurrent bacterial cystitis (Acute) Morbid obesity with BMI of 40.0-44.9, adult (Chronic) Major depressive disorder, recurrent severe without psychotic features (Chronic) 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) Pain and swelling of left lower extremity (Acute) Chronic use of opiate for therapeutic purpose (Chronic) Acute exacerbation of chronic obstructive airways disease (Acute) Respiratory distress (Acute) Dental infection (Acute) Contusion of hand (Acute) Abrasion of multiple sites of left upper arm (Acute) Neck injury (Acute) Cervical disc disorder with radiculopathy (Acute) Hx of fusion of cervical spine (Acute) Lower urinary tract symptoms (LUTS) (Acute) Prostate cancer screening (Acute) H/O cervical spine surgery (Acute) H/O cervical discectomy (Chronic ~11/02/20) Cellulitis (Acute) Bilateral lower extremity edema (Acute) Acute dyspnea (Acute) Ulcer of left heel (Acute) Cervical disc disease (Chronic) BPH loc w urin obs/LUTS (Acute) Fall (Acute) Generalized weakness (Acute) Multiple falls (Acute) COVID-19 virus infection (Acute) Obesity with alveolar hypoventilation and body mass index (BMI) of 40 or greater (Acute) Cough (Acute) Pharyngitis (Acute) Elevated PSA, less than 10 ng/ml (Acute) Medical History Anxiety disorder Bilateral shoulder pain CAD (coronary artery disease) 1998 chronically occluded RCA. No anginal symptoms currently. Medically optimized. Follows with cardiology. Cellulitis of left lower extremity Responded to Bactrim, after failing Keflex Chest pain Pain at rest. Nitro improved pain. Chronic use of opiate for therapeutic purpose Colon adenomas 02/10/17-3 year follow-up COPD (chronic obstructive pulmonary disease) Mild without hypoxia Uses duo nebs as needed Cystitis Dental abscess Dental infection Depressive disorder Diabetes mellitus, type II Since 02/14/2015 Well-controlled on metformin ER 1000 mg daily. Diabetic foot exam today. No numbness, but does have a lot of callus. Palpable pulses. He follows with podiatry about every 2 months. Weight loss, exercise, and diabetic diet recommended. Diabetic eye exam up-to-date Fatigue Foraminal stenosis of lumbar region Worst at L4-S1 Gastroesophageal reflux Gastroparesis On EGD 12/08/17 Greater trochanteric bursitis of right hip Heartburn Hyperlipidemia Hypertension, essential Typically well controlled on hydralazine 25 mg twice daily, isosorbide 60 mg twice daily, metoprolol tartrate 100 mg daily, losartan 100 mg daily, hydrochlorothiazide 25 mg daily, and amlodipine 10 mg daily A little bit low today. He has been monitoring blood pressure at home, but forgot to bring his logs in Insomnia Intentional weight loss 31 pounds since August Joint pain Joint pain Leukocytosis Low back pain Mild pain radiating to limbs, but pain is mostly in the back. Major depressive disorder, recurrent severe without psychotic features Metabolic syndrome Morbid obesity with BMI of 40.0-44.9, adult Muscle ache Myocardial infarction acute 1999 Neck injury Neck Pain Prior fusion Obesity Onychomycosis nails are cut very short Orthopnea Osteoarthritis Osteoarthritis cervical spine 1991 ACDF Osteoarthritis, shoulder LT LOC Osteoporosis LS Pain and swelling of left lower extremity likely cellulitis Panic disorder with agoraphobia Recurrent bacterial cystitis Rheumatoid arthritis H/O Right flank pain Sciatica right Sepsis Shoulder impingement syndrome bilateral Sleep apnea CPAP not tolerated Spinal stenosis Worst at L2-3 Swelling lower extremities likely due to amlodipine Tobacco abuse Former smoker Urinary tract infection UTI (urinary tract infection) Surgical History Abnormal findings on esophagogastroduodenoscopy (EGD) 12/08/17 Gastroparesis. Dysphagia. Suspect esophageal dysmotility. H/O cervical discectomy (~11/02/20) History of colonoscopy per phone call from GI clinic colonoscopy due 12/31/2014. 02/10/17 adenomas. 3 year follow up. History of fusion of cervical spine [address] Kemp History of neck surgery 11/2020 Family History Father Anemia Rheumatoid arthritis Dementia Family history of arthritis Gout Essential hypertension Acute myocardial infarction Osteoarthritis Mother Chronic Kidney Disease Family history of arthritis Mother Family history of arthritis Essential hypertension Disorder of liver Migraine Other Bilateral shoulder pain Colon adenomas Foraminal stenosis of lumbar region Greater trochanteric bursitis of right hip Neck Pain Onychomycosis Orthopnea Sepsis Spinal stenosis Swelling Social History household members: spouse housing: house lives independently: Yes marital status: education level: high school service: Yes occupational status: disabled smoking status: Former smoker alcohol intake frequency: does not drink substance use type: former substance user and marijuana MEDS/ALLERGIES Home Medications and Allergies Home Medications Medication Instructions Recorded Confirmed Type isosorbide mononitrate 60 mg 60 mg PO BID 07/13/15 11/04/22 History tablet,extended release 24 hr potassium chloride 20 mEq 20 meq PO QDAY 07/13/15 11/04/22 History tablet,extended release(part/cryst) atorvastatin 20 mg tablet 20 mg PO QPM #90 tabs 05/24/18 11/04/22 Rx aspirin 81 mg tablet,delayed 81 mg PO DAILY 01/18/19 11/04/22 History release nebulizer machine #1 ea 11/24/19 11/04/22 Rx nebulizer accessories #1 ea 02/02/20 11/04/22 Rx ipratropium 0.5 mg-albuterol 3 mg 3 ml inhalation Q6H PRN shortness 10/23/20 11/04/22 Rx (2.5 mg base)/3 mL nebulization of breath or wheezing #180 mL soln Compression stockings #2 ea 12/31/20 11/04/22 Rx amlodipine 10 mg tablet 10 mg PO QDAY 01/08/22 11/04/22 History losartan 100 mg tablet 100 mg PO QDAY 01/08/22 11/04/22 History ipratropium bromide 0.02 % 0.5 mg (2.5 mL) inhalation Q6H PRN 02/18/22 11/04/22 Rx solution for inhalation shortness of breath or wheezing #75 mL furosemide 20 mg tablet 20 mg PO QDAY 04/17/22 11/04/22 History Diabetic shoes #1 ea 08/07/22 11/04/22 Rx tamsulosin 0.4 mg capsule 0.8 mg PO QDAY BPH #60 caps 08/26/22 11/04/22 Rx metformin 500 mg tablet,extended 1,000 mg PO QAM #180 tabs 09/17/22 11/04/22 Rx release 24 hr diclofenac sodium 75 mg 75 mg PO BID #180 tabs 09/23/22 11/04/22 Rx tablet,delayed release gabapentin 300 mg capsule 600 mg PO TID #180 caps 10/14/22 11/04/22 Rx famotidine 40 mg tablet 40 mg PO QDAY 10/18/22 11/04/22 History metoprolol tartrate 50 mg tablet 50 mg PO BID 10/18/22 11/04/22 History albuterol sulfate 90 mcg/actuation 2 puff inhalation Q4-6HP PRN 11/12/22 Rx aerosol inhaler Wheezing #8.5 grams hydralazine 25 mg tablet 25 mg PO BID #180 tabs 12/17/22 Rx oxycodone-acetaminophen 7.5 mg-325 1 tab PO Q4H PRN pain #168 tabs 12/30/22 Rx mg tablet Allergies Allergy/AdvReac Type Severity Reaction Status Date / Time codeine Allergy Intermediate Rash Verified 01/05/23 09:59 latex Allergy Intermediate Unknown Verified 01/05/23 09:59 morphine Allergy Intermediate Rash Verified 01/05/23 09:59 EXAM Constitutional Vitals: Temp Pulse Resp BP Pulse Ox O2 Del Method 95.4 F L 101 H 17 111/62 96 Room Air 01/05/23 14:16 01/05/23 14:16 01/05/23 14:16 01/05/23 14:16 01/05/23 14:16 01/05/23 09:55 Exam: General: Alert, Awake, No acute Distress, obese Eyes/N/T: EOMI, PERRL, dry MM Head/Neck: neck supple, normocephalic atraumatic CV: RRR, No murmurs, normal s1/s2 Pulm: Clear b/l, no wheezing/rhonchi/rales Abd: soft, nontender, +BS x4 Ext: no clubbing/cyanosis, severe lymphedema b/l LE L>R Neuro: Alert, no focal deficits, moves all extremities, CN 2-12 grossly intact, sensations intact b/l upper/lower Skin: warm/dry DATA Data Completed and Pending Labs: Labs from last 24 hours 01/05/23 01/05/23 01/05/23 10:41 10:23 10:21 WBC RBC Hgb Hct POC Hct 44.0 MCV MCH MCHC RDW Plt Count MPV Immature Gran % (Auto) Neut % (Auto) Lymph % (Auto) [place] % (Auto) Eos % (Auto) Baso % (Auto) Lymph # (Auto) [place] # (Auto) Eos # (Auto) Baso # (Auto) Immature Gran # Absolute Neutrophils POC VBG pH POC VBG pCO2 at Temp POC VBG pO2 POC VBG HCO3 POC VBG Total CO2 POC Venous O2 Sat POC VBG Base Excess VBG Lactic Acid POC Sodium 138 Sodium POC Potassium 4.2 Potassium POC Chloride 97 Chloride Carbon Dioxide POC Total CO2 31.0 H Anion Gap POC BUN 13 BUN Creatinine POC Creatinine 0.8 GFR Calculation Glucose POC Glucose 140 H Calcium POC WB Ioniz Calcium 1.17 Total Bilirubin AST ALT Alkaline Phosphatase NT-Pro-B Natriuret Pep Total Protein Albumin Globulin Albumin/Globulin Ratio Urine Color Yellow Urine Appearance Hazy A Urine pH 7.0 Ur Specific [place] 1.018 Urine Protein 100 A Urine Glucose (UA) Negative Urine Ketones Negative Urine Occult Blood 0.03 Urine Nitrate Negative Urine Bilirubin Negative Urine Urobilinogen 2.0 A Ur Leukocyte Esterase 250 A Urine RBC 9 H Urine WBC 165 H Ur Squamous Epith Cells 3 Ur Transition Epith Cell < 1 Urine Bacteria None Urine Mucus Many A Urine Sperm Present A Ur Culture Indicated? yes POC Troponin I < 0.02 01/05/23 01/05/23 01/05/23 10:18 10:16 10:16 WBC 23.8 H RBC 4.85 Hgb 14.6 Hct 44.4 POC Hct MCV 91.5 MCH 30.1 MCHC 32.9 RDW 13.0 Plt Count 197 MPV 10.7 Immature Gran % (Auto) 1.0 H Neut % (Auto) 86.8 H Lymph % (Auto) 3.8 L [place] % (Auto) 8.1 Eos % (Auto) 0 Baso % (Auto) 0.3 Lymph # (Auto) 0.91 L [place] # (Auto) 1.93 H Eos # (Auto) 0.01 Baso # (Auto) 0.06 Immature Gran # 0.25 H Absolute Neutrophils 20.65 H POC VBG pH 7.42 POC VBG pCO2 at Temp 41.9 POC VBG pO2 26 POC VBG HCO3 27.0 POC VBG Total CO2 28.0 POC Venous O2 Sat 50.0 POC VBG Base Excess 2.0 VBG Lactic Acid 2.2 H POC Sodium Sodium 136 POC Potassium Potassium 4.2 POC Chloride Chloride 98 Carbon Dioxide 28 POC Total CO2 Anion Gap 10.0 POC BUN BUN 12 Creatinine 0.8 POC Creatinine GFR Calculation 95 Glucose 125 H POC Glucose Calcium 9.4 POC WB Ioniz Calcium Total Bilirubin 0.9 AST 10 ALT 8 Alkaline Phosphatase 64 NT-Pro-B Natriuret Pep 760.7 H Total Protein 7.3 Albumin 4.1 Globulin 3.2 Albumin/Globulin Ratio 1.3 Urine Color Urine Appearance Urine pH Ur Specific [place] Urine Protein Urine Glucose (UA) Urine Ketones Urine Occult Blood Urine Nitrate Urine Bilirubin Urine Urobilinogen Ur Leukocyte Esterase Urine RBC Urine WBC Ur Squamous Epith Cells Ur Transition Epith Cell Urine Bacteria Urine Mucus Urine Sperm Ur Culture Indicated? POC Troponin I A/P Narrative A/P Narrative: A: *UTI: *Sepsis: *Encephalopathy (lethargy): * *DM2 w/neuropathy: *COPD (not on home O2): *CYNTHIA: Has CPAP but does not wear regularly *HTN/HLD: *Chronic pain: On opiosid *GERD: *Obesity: BMI 38 *Generalized weakness/deconditioning/debility: Uses a walker at home * P: -Rocephin, pending BC/UC -IVF -monitor uop, i/o, cbc/chem - - -hold lasix for now -Continue home BP medications once clarified -cont asa/statin -SSI -Home medication reconciliation -home cpap -pt/ot -CM for placement needs -ppx: Lovenox / home H2 Time Spent With Patient Time: Total time spent is greater than 50% in coordination of care (as documented) at patient's floor/unit and/or counseling patient: Initial: Total time with patient: 75 - 90 minutes
[2023-01-05] MEDS ORDERED: DEXTROSE 50% 50 ML VIAL IV PRN (17:01)
[2023-01-05] MEDS ORDERED: IPRATROPIUM/ALBUTEROL 3 ML AMPUL.NEB NEB PRN (17:01)
[2023-01-05] MEDS ORDERED: ONDANSETRON 4 MG/2 ML VIAL IV PRN (17:01)
[2023-01-05] MEDS ORDERED: POTASSIUM CHLORIDE 40 MEQ in DEXTROSE 5% IN WATER 500 ML IV PRN (17:01)
[2023-01-05] MEDS ORDERED: SENNOSIDES 1 TABLET PO PRN (17:01)
[2023-01-05] MEDS ORDERED: POLYETHYLENE GLYCOL 3350 17 GM PACKET PO PRN (17:01)
[2023-01-05] MEDS ORDERED: POTASSIUM CHLORIDE 20 MEQ TABLET PO PRN ×2 (17:01)
[2023-01-05] MEDS ORDERED: MAGNESIUM SULFATE 2 GM/50 ML BAG IV PRN (17:01)
[2023-01-05] MEDS ORDERED: DEXTROSE 31 GM ORAL.SUSP PO PRN (17:01)
[2023-01-05] MEDS: ACETAMINOPHEN 325 MG TABLET PO PRN (17:20)
[2023-01-05] MEDS: INSULIN LISPRO 1 UNIT/0.01 ML UNIT SQ SCH ×2 (17:21→21:35)
[2023-01-05] MEDS ORDERED: oxyCODONE/APAP 5/325MG TABLET PO PRN (20:07)
[2023-01-05] MEDS ORDERED: LABETALOL 5 MG/ML ML IV PRN (20:14)
[2023-01-05] MEDS ORDERED: oxyCODONE/APAP 5/325MG TABLET PO ONE (21:17)
[2023-01-05] MEDS: GABAPENTIN 300 MG CAPSULE PO SCH (21:22)
[2023-01-05] MEDS: ISOSORBIDE MONONITRATE 60 MG TAB.XL.24H PO SCH (21:23)
[2023-01-05] MEDS: ATORVASTATIN 20 MG TABLET PO SCH (21:23)
[2023-01-05] MEDS: hydrALAZINE 25 MG TABLET PO SCH (21:23)
[2023-01-05] MEDS: METOPROLOL TARTRATE 50 MG TABLET PO SCH (21:23)
[2023-01-05] MEDS: DOCUSATE SODIUM 100 MG CAPSULE PO SCH (21:24)
[2023-01-05] MEDS: 0.9 % SODIUM CHLORIDE 10 ML SYRINGE IV SCH (21:35)
[2023-01-06] MEDS ORDERED: oxyCODONE/APAP 5/325MG TABLET PO ONE (04:00)
[2023-01-06] MEDS: oxyCODONE/APAP 5/325MG TABLET PO PRN ×2 (04:01→20:02)
[2023-01-06] MEDS: 0.9 % SODIUM CHLORIDE 10 ML SYRINGE IV SCH ×3 (04:21→22:25)
[2023-01-06 06:38] LABS: Basophils # (Auto) 0.07 K/mcL (0.00-0.30); Basophils % (Auto) 0.3 % (0.0-2.0); Eosinophils # (Auto) 0.01 K/mcL (0.00-0.70); Eosinophils % (Auto) 0 % (0.0-7.0); Hemoglobin 12.6 g/dL (13.7-17.5); Lymphocytes % (Auto) 6.2 % (15.5-49.0); Mean Cell Volume 91.3 fL (80.0-100.0); Mean Corpuscular HGB Conc 33.2 g/dL (31.0-36.0); Mean Platelet Volume 10.4 fL (8.8-12.5); Monocytes # (Auto) 1.61 K/mcL (0.10-0.90); Monocytes % (Auto) 6.6 % (1.0-12.0); Neutrophils % (Auto) 84.1 % (38.0-78.0); Platelet Count 177 K/mcL (140-440); RBC 4.16 M/mcL (4.63-6.08); WBC 24.3 K/mcL (4.5-11.0)
[2023-01-06 07:02] LABS: ALT/SGPT 7 U/L (<40); AST/SGOT 10 U/L (<40); Albumin 3.3 gm/dL (3.2-5.2); Albumin/Globulin Ratio 1.1 (1.0-2.3); Alkaline Phosphatase 68 U/L (39-117); Bilirubin,Direct 0.2 mg/dL (<0.3); Bilirubin,Total 0.8 mg/dL (0.1-1.0); Blood Urea Nitrogen 10 mg/dL (8-23); Calcium 8.8 mg/dL (8.6-10.4); Carbon Dioxide 27 mmol/L (22-30); Chloride 101 mmol/L (96-108); Glomerular Filtration Rate 100; Glucose 115 mg/dL (70-105); Lactate Dehydrogenase 133 U/L (135-225); Phosphorous 2.2 mg/dL (2.5-4.5); Triglycerides 183 mg/dL (<150); Uric Acid 4.1 mg/dL (2.5-8.0)
[2023-01-06] MEDS: INSULIN LISPRO 1 UNIT/0.01 ML UNIT SQ SCH ×4 (07:52→22:30)
--- NOTE | 2023-01-06 08:27 | Internal Med Progress Note ---
SUBJECTIVE Subjective Patient information: Note initiated : 01/06/23 at 8:24 am Service Date, if different from initiated Date: [] Patient: Clifford Herbert a 62 y/o M admitted on 01/05/23 for shortness of breath. Chief Complaint: [] Interval history: History of present illness: Mr. Herbert is a 62 year old M Presents the ED per with increased weakness. He also has malodorous urine and dysuria. Patient was last admitted in the hospital on October 18 and discharged on the for sepsis from cellulitis of lower extremities. This morning his found to be severely weak that he could not get out of bed. She noted malodorous urine. When speaking to him he complains of dysuria. Complains of headache fever chills. Denies chest pain shortness of breath nausea vomiting. In the ED is evaluated and found to have urinalysis consistent with infection. Lactate was mildly elevated 2.2. He had a leukocytosis of 23,000. Patient is mildly tachycardic and febrile in the ED. Patient also has a history of COPD does not wear oxygen but he says he needs to He may need it. He has obstructive sleep apnea has a CPAP machine but does not tolerate it. He has diabetes and is on metformin. 01/06 Patient feeling little better today. More alert and awake. Leukocytosis no change. Afebrile this morning. Review of Systems: denies headache/fever/chills/nausea/vomiting/chest or abdominal pain/cough/dyspnea/diarrhea. Otherwise see above. Constitutional Vitals: Vital Signs Temp Pulse Resp BP Pulse Ox O2 Del Method O2 Flow Rate 98.6 F 83 20 121/65 97 Room Air 0 01/06/23 07:58 01/06/23 07:58 01/06/23 07:58 01/06/23 07:58 01/06/23 07:58 01/06/23 07:58 01/05/23 20:00 Period Temp Pulse Resp BP Sys/[place] Pulse Ox O2 Del Method O2 Flow Rate Last 24 Hr 95.4 F-101.7 F 83-115 8-28 96-176/52-112 91-97 Room Air-Room Air 0 Intake and Output 01/05/23 01/06/23 01/06/23 19:59 03:59 11:59 Intake Total 1240 340 Output Total 1900 Balance 1240 -1560 Weight 126.235 kg Intake & Output: Intake & Output 01/05/23 01/06/23 01/06/23 19:59 03:59 11:59 Intake Total 1240 340 Output Total 1900 Balance 1240 -1560 Weight 126.235 kg Intake: IV 1000 Sodium Chloride 0.9% 1,000 ml @ 1000 Wide Open IV BOLUS ONE Rx#: [id number] Oral 240 340 Output: Urine Catheter Amount 1900 Other: Meal Dinner Percent of Meal Consumed 50% Feeding Ability Independent Urine Appearance Clear Uretheral (Veliz) Clear Clear Urine Color Yellow Uretheral (Veliz) Yellow Bright Yellow Urine Odor Uretheral (Veliz) Normal Stool Size Large Stool Color Brown Stool Consistency Soft Formed # Bowel Movements 1 Exam: General: Alert, Awake, No acute Distress, obese Eyes/N/T: EOMI, Head/Neck: neck supple, CV: RRR, No murmurs, Pulm: Clear b/l, no wheezing/rhonchi/rales Abd: soft, nontender, +BS x4 Ext: no clubbing/cyanosis, severe lymphedema b/l LE L>R Neuro: more Alert today, no focal deficits, moves all extremities, Skin: warm/dry OBJ DATA Labs 01/06/23 05:24 01/06/23 05:24 Labs: Abnormal Lab Results 01/06/23 01/06/23 01/05/23 05:24 05:24 10:41 WBC 24.3 H RBC 4.16 L Hgb 12.6 L Hct 38.0 L Immature Gran % (Auto) 2.8 H Neut % (Auto) 84.1 H Lymph % (Auto) 6.2 L Lymph # (Auto) [place] # (Auto) 1.61 H Immature Gran # 0.68 H Absolute Neutrophils 20.44 H VBG Lactic Acid POC Total CO2 Glucose 115 H POC Glucose Phosphorus 2.2 L Lactate Dehydrogenase 133 L NT-Pro-B Natriuret Pep Triglycerides 183 H Urine Appearance Hazy A Urine Protein 100 A Urine Urobilinogen 2.0 A Ur Leukocyte Esterase 250 A Urine RBC 9 H Urine WBC 165 H Urine Mucus Many A Urine Sperm Present A 01/05/23 01/05/23 01/05/23 10:21 10:18 10:16 WBC RBC Hgb Hct Immature Gran % (Auto) Neut % (Auto) Lymph % (Auto) Lymph # (Auto) [place] # (Auto) Immature Gran # Absolute Neutrophils VBG Lactic Acid 2.2 H POC Total CO2 31.0 H Glucose 125 H POC Glucose 140 H Phosphorus Lactate Dehydrogenase NT-Pro-B Natriuret Pep 760.7 H Triglycerides Urine Appearance Urine Protein Urine Urobilinogen Ur Leukocyte Esterase Urine RBC Urine WBC Urine Mucus Urine Sperm 01/05/23 10:16 WBC 23.8 H RBC Hgb Hct Immature Gran % (Auto) 1.0 H Neut % (Auto) 86.8 H Lymph % (Auto) 3.8 L Lymph # (Auto) 0.91 L [place] # (Auto) 1.93 H Immature Gran # 0.25 H Absolute Neutrophils 20.65 H VBG Lactic Acid POC Total CO2 Glucose POC Glucose Phosphorus Lactate Dehydrogenase NT-Pro-B Natriuret Pep Triglycerides Urine Appearance Urine Protein Urine Urobilinogen Ur Leukocyte Esterase Urine RBC Urine WBC Urine Mucus Urine Sperm Meds: Medications Acetaminophen (Acetaminophen 325 Mg Tablet) 650 mg PO Q6HP PRN; Protocol PRN Reason: Per Pain Protocol/Fever > 101 Last Admin: 01/05/23 17:20 Dose: 650 mg Albuterol/Ipratropium (Ipratropium/Albuterol 3 Ml Ampul.Neb) 3 ml NEB Q4HP PRN PRN Reason: Shortness Of Breath Amlodipine Besylate (Amlodipine 10 Mg Tablet) 10 mg PO QDAY [facility] Aspirin (Aspirin 81 Mg Tab.Chew) 81 mg PO DAILY [facility] Atorvastatin Calcium (Atorvastatin 20 Mg Tablet) 20 mg PO QPM [facility] Last Admin: 01/05/23 21:23 Dose: 20 mg Dextrose (Dextrose 50% 50 Ml Vial) 0 ml IV UD PRN PRN Reason: Per Sliding Scale Diagnostic Test (Pha) (Accu-Chek 1 Each Strip) 1 each FS ACHS [facility] [place] Last Admin: 01/06/23 07:52 Dose: 1 each Docusate Sodium (Docusate Sodium 100 Mg Capsule) 100 mg PO BID [facility] [place] Last Admin: 01/05/23 21:24 Dose: 100 mg Enoxaparin Sodium (Enoxaparin 40 Mg/0.4 Ml Syringe) 40 mg SQ DAILY [facility] [place] Famotidine (Famotidine 20 Mg Tablet) 40 mg PO QDAY [facility] [place] Gabapentin (Gabapentin 300 Mg Capsule) 600 mg PO TID [facility] [place] Last Admin: 01/05/23 21:22 Dose: 600 mg Glucose (Dextrose 31 Gm Oral.Susp) 15 gm PO PRN PRN PRN Reason: Hypoglycemia Hydralazine HCl (Hydralazine 25 Mg Tablet) 25 mg PO BID [facility] [place] Last Admin: 01/05/23 21:23 Dose: 25 mg Potassium Chloride 40 meq/ (Dextrose) 520 mls @ 130 mls/hr IV UD PRN PRN Reason: Potassium < 3 Magnesium Sulfate (Magnesium Sulfate) 2 gm in 50 mls @ 50 mls/hr IV UD PRN PRN Reason: Magnesium </= 1.6 Ceftriaxone Sodium 2 gm/ (Dextrose) 50 mls @ 100 mls/hr IV Q24H [facility] [place]; Protocol Insulin Human Lispro (Insulin Lispro 1 Unit/0.01 Ml Unit) 0 unit SQ ACHS [facility] [place]; Protocol Last Admin: 01/06/23 07:52 Dose: Not Given Isosorbide Mononitrate (Isosorbide Mononitrate 60 Mg Tab.Xl.24h) 60 mg PO BID [facility] [place] Last Admin: 01/05/23 21:23 Dose: 60 mg Labetalol HCl (Labetalol 5 Mg/Ml Ml) 0 mg IV Q2HP PRN PRN Reason: Hypertension Losartan Potassium (Losartan 50 Mg Tablet) 100 mg PO DAILY [facility] [place] Metoprolol Tartrate (Metoprolol Tartrate 50 Mg Tablet) 50 mg PO BID [facility] [place] Last Admin: 01/05/23 21:23 Dose: 50 mg Ondansetron HCl (Ondansetron 4 Mg/2 Ml Vial) 4 mg IV Q4HP PRN PRN Reason: Nausea And Vomiting Oxycodone/Acetaminophen (Oxycodone/Apap 5/325mg Tablet) 1.5 tab PO Q4HP PRN; Protocol PRN Reason: Per Pain Protocol Last Admin: 01/06/23 04:01 Dose: 1.5 tab Diclofenac Sodium 75 Mg Tablet,Delayed Release 1 dose PO BID [facility] [place] Polyethylene Glycol (Polyethylene Glycol 3350 17 Gm Packet) 17 gm PO DAILYP PRN PRN Reason: Constipation Potassium Chloride (Potassium Chloride 20 Meq Tablet) 40 meq PO UD PRN PRN Reason: Potssium is 3-3.5 Potassium Chloride (Potassium Chloride 20 Meq Tablet) 40 meq PO UD PRN PRN Reason: Potassium < 3 Potassium Chloride (Potassium Chloride 20 Meq Tablet) 20 meq PO QDAY [facility] [place] Senna (Sennosides 1 Tablet) 2 tab PO DAILYP PRN PRN Reason: Constipation Sodium Chloride (0.9 % Sodium Chloride 10 Ml Syringe) 10 ml IV Q8 [facility] [place] Last Admin: 01/06/23 04:21 Dose: 10 ml Tamsulosin HCl (Tamsulosin 0.4 Mg Capsule) 0.8 mg PO QDAY ROMEL A/P Narrative A/P Narrative: A: *UTI( ): *Sepsis: afebrile this morning. leukocytosis no change *Encephalopathy (lethargy): improving *DM2 w/neuropathy: *COPD (not on home O2): *CYNTHIA: Has CPAP but does not wear regularly *HTN/HLD: *Chronic pain: On opioids *anemia, chronic: *GERD: *Obesity: BMI 38 *Generalized weakness/deconditioning/debility: Uses a walker at home * P: -Rocephin, pending BC/UC -monitor uop, i/o, cbc/chem -IVF d/c -hold lasix for now -Continue home BP medications -cont asa/statin -SSI -home cpap -pt/ot -CM for placement needs -ppx: Lovenox / home H2 Time Spent With Patient Time: Total time spent is greater than 50% in coordination of care (as documented) at patient's floor/unit and/or counseling patient: Subsequent: Total time with patient: 50 - 65 Minutes QUALITY VTE Deep Vein Thrombosis/Pulmonary Embolism Present on Admission: No
[2023-01-06] MEDS: cefTRIAXone 2 GM in DEXTROSE 5% IN WATER 50 ML IV SCH (09:06)
[2023-01-06] MEDS: ENOXAPARIN 40 MG/0.4 ML SYRINGE SQ SCH (09:06)
[2023-01-06] MEDS: ASPIRIN 81 MG TAB.CHEW PO SCH (09:07)
[2023-01-06] MEDS: ISOSORBIDE MONONITRATE 60 MG TAB.XL.24H PO SCH ×2 (09:07→20:16)
[2023-01-06] MEDS: POTASSIUM CHLORIDE 20 MEQ TABLET PO SCH (09:07)
[2023-01-06] MEDS: hydrALAZINE 25 MG TABLET PO SCH ×2 (09:07→20:16)
[2023-01-06] MEDS: GABAPENTIN 300 MG CAPSULE PO SCH ×3 (09:07→20:20)
[2023-01-06] MEDS: TAMSULOSIN 0.4 MG CAPSULE PO SCH (09:07)
[2023-01-06] MEDS: METOPROLOL TARTRATE 50 MG TABLET PO SCH ×2 (09:07→20:15)
[2023-01-06] MEDS: DOCUSATE SODIUM 100 MG CAPSULE PO SCH ×2 (09:07→20:23)
[2023-01-06] MEDS: amLODIPine 10 MG TABLET PO SCH (09:07)
[2023-01-06] MEDS: FAMOTIDINE 20 MG TABLET PO SCH (09:07)
[2023-01-06] MEDS: Diclofenac Sodium 75 mg tablet,delayed release PO SCH ×2 (09:08→20:22)
[2023-01-06] MEDS: LOSARTAN 50 MG TABLET PO SCH (09:08)
--- NOTE | 2023-01-06 13:10 | Internal Med Progress Note ---
SUBJECTIVE Subjective Patient information: Note initiated : 01/06/23 at 1:08 pm Service Date, if different from initiated Date: [] Patient: Clifford Herbert a 62 y/o M admitted on 01/05/23 for shortness of breath. Chief Complaint: [] Interval history: History of present illness: Mr. Herbert is a 62 year old M Presents the ED per with increased weakness. He also has malodorous urine and dysuria. Patient was last admitted in the hospital on October 18 and discharged on the for sepsis from cellulitis of lower extremities. This morning his found to be severely weak that he could not get out of bed. She noted malodorous urine. When speaking to him he complains of dysuria. Complains of headache fever chills. Denies chest pain shortness of breath nausea vomiting. In the ED is evaluated and found to have urinalysis consistent with infection. Lactate was mildly elevated 2.2. He had a leukocytosis of 23,000. Patient is mildly tachycardic and febrile in the ED. Patient also has a history of COPD does not wear oxygen but he says he needs to He may need it. He has obstructive sleep apnea has a CPAP machine but does not tolerate it. He has diabetes and is on metformin. 01/06 Patient feeling little better today. More alert and awake. Leukocytosis no change. Afebrile this morning. 01/07 Patient had fevers overnight, no fever so far today. Leukocytosis improving. Urine grew pansensitive E. coli. Blood cultures showing no growth to date. We will continue ceftriaxone today. If afebrile overnight then transition to oral antibiotics and discharge to home. Physical exam Head: Atraumatic, normal inspection. Eyes: normal appearance, no scleral icterus. Neck: full ROM Respiratory: no respiratory distress. Cardiovascular: normal rate and rhythm, S1, S2. GI/Abdominal: soft, nontender, no guarding. Extremities: full range of motion, nontender. Neurological: CN II-XII intact, intact motor, intact sensation. Psychiatric: normal mood. Skin: warm, normal color Constitutional Vitals: Vital Signs Temp Pulse Resp BP Pulse Ox O2 Del Method O2 Flow Rate 97.5 F 78 20 117/65 98 Room Air 0 01/06/23 12:01/06/23 12:01/06/23 12:01/06/23 12:00 01/06/23 12:00 01/06/23 12:00 01/05/23 20:00 Period Temp Pulse Resp BP Sys/[place] Pulse Ox O2 Del Method O2 Flow Rate Last 24 Hr 95.4 F-101.7 F 78-115 13-25 109-176/55-112 92-98 Room Air-Room Air 0 Intake and Output 01/06/23 01/06/23 01/06/23 03:59 11:59 19:59 Intake Total 340 170 Output Total 1900 Balance -1560 170 Intake & Output: Intake & Output 01/06/23 01/06/23 01/06/23 03:59 11:59 19:59 Intake Total 340 170 Output Total 1900 Balance -1560 170 Intake: IV 50 Rocephin 2 gm In Dextrose 5% in 50 Water 50 ml @ 100 mls/hr IV Q24H ON LICENSE OF [facility] Rx#:[id number] Oral 340 120 Output: Urine Catheter Amount 1900 Other: Meal Breakfast Percent of Meal Consumed 25% Feeding Ability Assist with Tray Set Up Urine Appearance Clear Uretheral (Veliz) Clear Clear Urine Color Yellow Uretheral (Veliz) Bright Yellow Yellow Urine Odor Uretheral (Veliz) Normal Stool Size Large Stool Color Brown Stool Consistency Soft Formed # Bowel Movements 1 OBJ DATA Labs 01/06/23 05:24 01/06/23 05:24 Labs: Abnormal Lab Results 01/06/23 01/06/23 01/05/23 05:24 05:24 10:41 WBC 24.3 H RBC 4.16 L Hgb 12.6 L Hct 38.0 L Immature Gran % (Auto) 2.8 H Neut % (Auto) 84.1 H Lymph % (Auto) 6.2 L Lymph # (Auto) [place] # (Auto) 1.61 H Immature Gran # 0.68 H Absolute Neutrophils 20.44 H VBG Lactic Acid POC Total CO2 Glucose 115 H POC Glucose Phosphorus 2.2 L Lactate Dehydrogenase 133 L NT-Pro-B Natriuret Pep Triglycerides 183 H Urine Appearance Hazy A Urine Protein 100 A Urine Urobilinogen 2.0 A Ur Leukocyte Esterase 250 A Urine RBC 9 H Urine WBC 165 H Urine Mucus Many A Urine Sperm Present A 01/05/23 01/05/23 01/05/23 10:21 10:18 10:16 WBC RBC Hgb Hct Immature Gran % (Auto) Neut % (Auto) Lymph % (Auto) Lymph # (Auto) [place] # (Auto) Immature Gran # Absolute Neutrophils VBG Lactic Acid 2.2 H POC Total CO2 31.0 H Glucose 125 H POC Glucose 140 H Phosphorus Lactate Dehydrogenase NT-Pro-B Natriuret Pep 760.7 H Triglycerides Urine Appearance Urine Protein Urine Urobilinogen Ur Leukocyte Esterase Urine RBC Urine WBC Urine Mucus Urine Sperm 01/05/23 10:16 WBC 23.8 H RBC Hgb Hct Immature Gran % (Auto) 1.0 H Neut % (Auto) 86.8 H Lymph % (Auto) 3.8 L Lymph # (Auto) 0.91 L [place] # (Auto) 1.93 H Immature Gran # 0.25 H Absolute Neutrophils 20.65 H VBG Lactic Acid POC Total CO2 Glucose POC Glucose Phosphorus Lactate Dehydrogenase NT-Pro-B Natriuret Pep Triglycerides Urine Appearance Urine Protein Urine Urobilinogen Ur Leukocyte Esterase Urine RBC Urine WBC Urine Mucus Urine Sperm Meds: Medications Acetaminophen (Acetaminophen 325 Mg Tablet) 650 mg PO Q6HP PRN; Protocol PRN Reason: Per Pain Protocol/Fever > 101 Last Admin: 01/05/23 17:20 Dose: 650 mg Albuterol/Ipratropium (Ipratropium/Albuterol 3 Ml Ampul.Neb) 3 ml NEB Q4HP PRN PRN Reason: Shortness Of Breath Amlodipine Besylate (Amlodipine 10 Mg Tablet) 10 mg PO QDAY ON LICENSE OF [facility] Last Admin: 01/06/23 09:07 Dose: 10 mg Aspirin (Aspirin 81 Mg Tab.Chew) 81 mg PO DAILY ON LICENSE OF [facility] Last Admin: 01/06/23 09:07 Dose: 81 mg Atorvastatin Calcium (Atorvastatin 20 Mg Tablet) 20 mg PO QPM ON LICENSE OF [facility] Last Admin: 01/05/23 21:23 Dose: 20 mg Dextrose (Dextrose 50% 50 Ml Vial) 0 ml IV UD PRN PRN Reason: Per Sliding Scale Diagnostic Test (Pha) (Accu-Chek 1 Each Strip) 1 each FS ACHS ON LICENSE OF [facility] Last Admin: 01/06/23 11:54 Dose: 1 each Docusate Sodium (Docusate Sodium 100 Mg Capsule) 100 mg PO BID ON LICENSE OF [facility] Last Admin: 01/06/23 09:07 Dose: 100 mg Enoxaparin Sodium (Enoxaparin 40 Mg/0.4 Ml Syringe) 40 mg SQ DAILY ON LICENSE OF [facility] Last Admin: 01/06/23 09:06 Dose: 40 mg Famotidine (Famotidine 20 Mg Tablet) 40 mg PO QDAY ON LICENSE OF [facility] Last Admin: 01/06/23 09:07 Dose: 40 mg Gabapentin (Gabapentin 300 Mg Capsule) 600 mg PO TID ON LICENSE OF [facility] Last Admin: 01/06/23 09:07 Dose: 600 mg Glucose (Dextrose 31 Gm Oral.Susp) 15 gm PO PRN PRN PRN Reason: Hypoglycemia Hydralazine HCl (Hydralazine 25 Mg Tablet) 25 mg PO BID ON LICENSE OF [facility] Last Admin: 01/06/23 09:07 Dose: 25 mg Potassium Chloride 40 meq/ (Dextrose) 520 mls @ 130 mls/hr IV UD PRN PRN Reason: Potassium < 3 Magnesium Sulfate (Magnesium Sulfate) 2 gm in 50 mls @ 50 mls/hr IV UD PRN PRN Reason: Magnesium </= 1.6 Ceftriaxone Sodium 2 gm/ (Dextrose) 50 mls @ 100 mls/hr IV Q24H ON LICENSE OF [facility]; Protocol Last Infusion: 01/06/23 09:40 Dose: Infused Insulin Human Lispro (Insulin Lispro 1 Unit/0.01 Ml Unit) 0 unit SQ ACHS ON LICENSE OF [facility]; Protocol Last Admin: 01/06/23 11:54 Dose: Not Given Isosorbide Mononitrate (Isosorbide Mononitrate 60 Mg Tab.Xl.24h) 60 mg PO BID ON LICENSE OF [facility] Last Admin: 01/06/23 09:07 Dose: 60 mg Labetalol HCl (Labetalol 5 Mg/Ml Ml) 0 mg IV Q2HP PRN PRN Reason: Hypertension Losartan Potassium (Losartan 50 Mg Tablet) 100 mg PO DAILY ON LICENSE OF [facility] Last Admin: 01/06/23 09:08 Dose: 100 mg Metoprolol Tartrate (Metoprolol Tartrate 50 Mg Tablet) 50 mg PO BID ON LICENSE OF [facility] Last Admin: 01/06/23 09:07 Dose: 50 mg Ondansetron HCl (Ondansetron 4 Mg/2 Ml Vial) 4 mg IV Q4HP PRN PRN Reason: Nausea And Vomiting Oxycodone/Acetaminophen (Oxycodone/Apap 5/325mg Tablet) 1.5 tab PO Q4HP PRN; Protocol PRN Reason: Per Pain Protocol Last Admin: 01/06/23 04:01 Dose: 1.5 tab Diclofenac Sodium 75 Mg Tablet,Delayed Release 1 dose PO BID ON LICENSE OF [facility] Last Admin: 01/06/23 09:08 Dose: Not Given Polyethylene Glycol (Polyethylene Glycol 3350 17 Gm Packet) 17 gm PO DAILYP PRN PRN Reason: Constipation Potassium Chloride (Potassium Chloride 20 Meq Tablet) 40 meq PO UD PRN PRN Reason: Potssium is 3-3.5 Potassium Chloride (Potassium Chloride 20 Meq Tablet) 40 meq PO UD PRN PRN Reason: Potassium < 3 Potassium Chloride (Potassium Chloride 20 Meq Tablet) 20 meq PO QDAY ON LICENSE OF [facility] Last Admin: 01/06/23 09:07 Dose: 20 meq Senna (Sennosides 1 Tablet) 2 tab PO DAILYP PRN PRN Reason: Constipation Sodium Chloride (0.9 % Sodium Chloride 10 Ml Syringe) 10 ml IV Q8 ON LICENSE OF [facility] Last Admin: 01/06/23 04:21 Dose: 10 ml Tamsulosin HCl (Tamsulosin 0.4 Mg Capsule) 0.8 mg PO QDAY ON LICENSE OF [facility] Last Admin: 01/06/23 09:07 Dose: 0.8 mg A/P Narrative A/P Narrative: Assessment: 62-year-old male admitted for sepsis secondary to UTI complicated by encephalopathy. *UTI secondary to E. coli *Resolving sepsis *Resolved metabolic encephalopathy secondary to sepsis *DM2 w/neuropathy: *COPD (not on home O2): *CYNTHIA: Has CPAP but does not wear regularly *HTN/HLD: *Chronic pain: On opioids *anemia, chronic: *GERD: *Obesity: BMI 38 *Generalized weakness/deconditioning/debility: Uses a walker at home P: -Rocephin, transition to oral antibiotics when afebrile for 24 hours. -monitor uop, i/o, cbc/chem -IVF d/c -hold lasix for now -Continue home BP medications -cont asa/statin -SSI -home cpap -pt/ot -CM for placement needs -ppx: Lovenox / home H2 Time Spent With Patient Time: Total time spent is greater than 50% in coordination of care (as documented) at patient's floor/unit and/or counseling patient: QUALITY VTE Deep Vein Thrombosis/Pulmonary Embolism Present on Admission: No
[2023-01-06] MEDS: ATORVASTATIN 20 MG TABLET PO SCH (20:23)
[2023-01-07] MEDS: oxyCODONE/APAP 5/325MG TABLET PO PRN ×3 (00:21→21:27)
[2023-01-07] MEDS: 0.9 % SODIUM CHLORIDE 10 ML SYRINGE IV SCH ×3 (05:27→21:40)
[2023-01-07 07:02] LABS: Basophils # (Auto) 0.04 K/mcL (0.00-0.30); Basophils % (Auto) 0.4 % (0.0-2.0); Eosinophils # (Auto) 0.03 K/mcL (0.00-0.70); Eosinophils % (Auto) 0.3 % (0.0-7.0); Hematocrit 37.7 % (40.1-51.0); Hemoglobin 12.5 g/dL (13.7-17.5); Lymphocytes # (Auto) 0.88 K/mcL (1.50-4.80); Lymphocytes % (Auto) 7.9 % (15.5-49.0); Mean Cell Volume 89.5 fL (80.0-100.0); Mean Corpuscular HGB Conc 33.2 g/dL (31.0-36.0); Mean Platelet Volume 10.2 fL (8.8-12.5); Monocytes # (Auto) 0.54 K/mcL (0.10-0.90); Monocytes % (Auto) 4.8 % (1.0-12.0); Neutrophils % (Auto) 86.1 % (38.0-78.0); Platelet Count 182 K/mcL (140-440); RBC 4.21 M/mcL (4.63-6.08); WBC 11.2 K/mcL (4.5-11.0)
[2023-01-07 07:31] LABS: ALT/SGPT 7 U/L (<40); AST/SGOT 14 U/L (<40); Albumin 3.2 gm/dL (3.2-5.2); Alkaline Phosphatase 83 U/L (39-117); Bilirubin,Direct < 0.2 mg/dL (0-0.3); Bilirubin,Total 0.5 mg/dL (0.1-1.0); Blood Urea Nitrogen 13 mg/dL (8-23); Calcium 8.7 mg/dL (8.6-10.4); Carbon Dioxide 25 mmol/L (22-30); Chloride 101 mmol/L (96-108); Globulin 3.2 gm/dL (2.2-3.7); Glomerular Filtration Rate 100; Glucose 113 mg/dL (70-105); Lactate Dehydrogenase 166 U/L (135-225); Phosphorous 2.4 mg/dL (2.5-4.5); Triglycerides 96 mg/dL (<150)
[2023-01-07] MEDS: INSULIN LISPRO 1 UNIT/0.01 ML UNIT SQ SCH ×4 (08:36→21:35)
[2023-01-07] MEDS: FAMOTIDINE 20 MG TABLET PO SCH (08:39)
[2023-01-07] MEDS: LOSARTAN 50 MG TABLET PO SCH (08:40)
[2023-01-07] MEDS: ASPIRIN 81 MG TAB.CHEW PO SCH (08:41)
[2023-01-07] MEDS: GABAPENTIN 300 MG CAPSULE PO SCH ×3 (08:48→21:31)
[2023-01-07] MEDS: DOCUSATE SODIUM 100 MG CAPSULE PO SCH ×2 (08:48→21:30)
[2023-01-07] MEDS: TAMSULOSIN 0.4 MG CAPSULE PO SCH (08:49)
[2023-01-07] MEDS: hydrALAZINE 25 MG TABLET PO SCH ×2 (08:49→21:31)
[2023-01-07] MEDS: ISOSORBIDE MONONITRATE 60 MG TAB.XL.24H PO SCH ×2 (08:50→21:34)
[2023-01-07] MEDS: amLODIPine 10 MG TABLET PO SCH (08:50)
[2023-01-07] MEDS: ENOXAPARIN 40 MG/0.4 ML SYRINGE SQ SCH (08:54)
[2023-01-07] MEDS: POTASSIUM CHLORIDE 20 MEQ TABLET PO SCH (08:59)
[2023-01-07] MEDS: METOPROLOL TARTRATE 50 MG TABLET PO SCH ×2 (09:18→21:35)
[2023-01-07] MEDS: cefTRIAXone 2 GM in DEXTROSE 5% IN WATER 50 ML IV SCH (09:23)
[2023-01-07] MEDS: Diclofenac Sodium 75 mg tablet,delayed release PO SCH ×2 (09:49→21:37)
[2023-01-07] MEDS: ATORVASTATIN 20 MG TABLET PO SCH (21:30)
[2023-01-07] MEDS: ACETAMINOPHEN 325 MG TABLET PO PRN (22:01)
[2023-01-08] MEDS: 0.9 % SODIUM CHLORIDE 10 ML SYRINGE IV SCH (05:45)
[2023-01-08] MEDS: INSULIN LISPRO 1 UNIT/0.01 ML UNIT SQ SCH (06:49)
[2023-01-08 07:25] LABS: Basophils # (Auto) 0.02 K/mcL (0.00-0.30); Basophils % (Auto) 0.4 % (0.0-2.0); Eosinophils # (Auto) 0.03 K/mcL (0.00-0.70); Eosinophils % (Auto) 0.7 % (0.0-7.0); Hematocrit 36.2 % (40.1-51.0); Hemoglobin 12.1 g/dL (13.7-17.5); Lymphocytes # (Auto) 0.65 K/mcL (1.50-4.80); Lymphocytes % (Auto) 14.5 % (15.5-49.0); Mean Cell Volume 88.5 fL (80.0-100.0); Mean Corpuscular HGB Conc 33.4 g/dL (31.0-36.0); Mean Platelet Volume 9.7 fL (8.8-12.5); Monocytes # (Auto) 0.45 K/mcL (0.10-0.90); Platelet Count 173 K/mcL (140-440); RBC 4.09 M/mcL (4.63-6.08); Red Cell Distribution Width 13.1 % (11.5-14.5); WBC 4.5 K/mcL (4.5-11.0)
--- NOTE | 2023-01-08 08:26 | Discharge Summary ---
Discharge Provider Provider IMPORTANT FOLLOW-UP INFORMATION FOR PCP: Patient information: Note initiated : 01/08/23 at 8:24 am Service Date, if different from initiated Date: [] Patient: Clifford Herbert a 62 y/o M admitted on 01/05/23 for shortness of breath. Chief Complaint: [] Date of admission: 01/05/23 16:25 Discharge date: 01/08/23 Primary care physician: Jordon Clark DO Consults: 01/05/23 12:43 Consult to Physician [CONS] Stat Comment: Consulting Provider: Madhu Ramos Reason For Exam: Physician to Consult COURSE Hospital Course Hospital course: Mr. Herbert is a 62 year old M Presents the ED per with increased weakness. He also has malodorous urine and dysuria. Patient was last admitted in the hospital on October 18 and discharged on the for sepsis from cellulitis of lower extremities. This morning his found to be severely weak that he could not get out of bed. She noted malodorous urine. When speaking to him he complains of d ysuria. Complains of headache fever chills. Denies chest pain shortness of breath nausea vomiting. In the ED is evaluated and found to have urinalysis consistent with infection. Lactate was mildly elevated 2.2. He had a leukocytosis of 23,000. Patient is mildly tachycardic and febrile in the ED. Patient also has a history of COPD does not wear oxygen but he says he needs to He may need it. He has obstructive sleep apnea has a CPAP machine but does not tolerate it. He has diabetes and is on metformin. 01/06 Patient feeling little better today. More alert and awake. Leukocytosis no mati nge. Afebrile this morning. 01/07 Patient had fevers overnight, no fever so far today. Leukocytosis improving. Urine grew pansensitive E. coli. Blood cultures showing no growth to date. We will continue ceftriaxone today. If afebrile overnight then transition to oral antibiotics and discharge to home. 01/08 The patient did have a fever of 101.5 overnight but feels well enough to go home. Discharge the patient on Bactrim DS twice daily for 5 more days to complete 7 days of UTI treatment. Follow-up with PCP after discharge. Physical exam Head: Atraumatic, normal inspection. Eyes: normal appearance, no scleral icterus. Neck: full ROM Respiratory: no respiratory distress. Cardiovascular: normal rate and rhythm, S1, S2. GI/Abdominal: soft, nontender, no guarding. Extremities: full range of motion, nontender. Neurological: CN II-XII intact, intact motor, intact sensation. Psychiatric: normal mood. Skin: warm, normal color Discharge diagnosis: Complicated urinary tract infection secondary to E. coli Time Spent with Patient Time attestation: Total time spent providing and/or coordinating discharge services: Time spent: Less than 30 minutes EXAM Constitutional Vitals: Temp Pulse Resp BP Pulse Ox O2 Del Method O2 Flow Rate 98.2 F 79 20 147/67 98 Room Air 0 01/08/23 07:50 01/08/23 07:50 01/08/23 07:50 01/08/23 07:50 01/08/23 07:50 01/08/23 07:50 01/05/23 20:00 Discharge Data Data Completed and Pending Labs on day of discharge: Labs from last 24 hours 01/08/23 06:34 WBC 4.5 RBC 4.09 L Hgb 12.1 L Hct 36.2 L MCV 88.5 MCH 29.6 MCHC 33.4 RDW 13.1 Plt Count 173 MPV 9.7 Immature Gran % (Auto) 0.4 Neut % (Auto) 74.0 Lymph % (Auto) 14.5 L [place] % (Auto) 10.0 Eos % (Auto) 0.7 Baso % (Auto) 0.4 Lymph # (Auto) 0.65 L [place] # (Auto) 0.45 Eos # (Auto) 0.03 Baso # (Auto) 0.02 Immature Gran # 0.02 Absolute Neutrophils 3.31 Preliminary micro results at discharge 01/05/23 10:22 Blood Culture - Preliminary Blood 01/05/23 10:13 Blood Culture - Preliminary Blood Discharge Plan Patient/Caregiver Discharge Instructions Activity: increase activity as tolerated Diet: Consistent Carbohydrate Prescriptions: New sulfamethoxazole-trimethoprim [Bactrim DS] 800-160 mg tablet 1 tab PO BID 5 Days Qty: 10 0RF Continued atorvastatin 20 mg tablet 20 mg PO QPM Qty: 90 3RF (DME) nebulizer accessories Kit See Rx Instructions .ROUTE .MEDSUPPLY Qty: 1 0RF Rx Instructions: Use daily as needed (DME) Compression stockings 20 mmHg Qty: 2 0RF Rx Instructions: 20 mmHg compression hose, appropriate size for patient (DME) Diabetic shoes See Rx Instructions .Route .MEDSUPPLY Qty: 1 0RF Rx Instructions: As directed, order to [facility] tamsulosin 0.4 mg capsule 0.8 mg PO QDAY Qty: 60 11RF metformin 500 mg tablet extended release 24 hr 1,000 mg PO QAM Qty: 180 3RF diclofenac sodium 75 mg tablet,delayed release (DR/EC) 75 mg PO BID Qty: 180 1RF gabapentin 300 mg capsule 600 mg PO TID Qty: 180 5RF albuterol sulfate 90 mcg/actuation HFA aerosol inhaler 2 puff inhalation Q4-6HP PRN (Reason: Wheezing) Qty: 8.5 5RF hydralazine 25 mg tablet 25 mg PO BID Qty: 180 3RF oxycodone-acetaminophen 7.5-325 mg tablet 1 tab PO Q4H PRN (Reason: pain) Qty: 168 0RF isosorbide mononitrate 60 mg tablet extended release 24 hr 60 mg PO BID Patient Comments: stated takes two tabs in Am, unsure if the dose is 30 =60mg or 60= 120mg Rx Instructions: swallow whole with glass of water; do not crush/chew/dissolve/cut/break potassium chloride 20 mEq tablet,ER particles/crystals 20 meq PO QDAY Patient Comments: with food (DME) nebulizer machine Qty: 1 0RF Rx Instructions: As directed amlodipine 10 mg tablet 10 mg PO QDAY losartan 100 mg tablet 100 mg PO QDAY aspirin 81 MG tablet,delayed release (DR/EC) 81 mg PO DAILY metoprolol tartrate 50 mg tablet 50 mg PO BID famotidine 40 mg Tablet 40 mg PO QDAY furosemide 20 mg tablet 20 mg PO QDAY Follow Up Plan Follow up with: Jordon Clark DO [Primary Care Provider] - Patient Disposition: Home, Self-Care Prognosis: Fair Overall status at discharge: patient is progressing back to baseline Discharge Orders: Discharge Order (Routine); Ordered 01/08/23 Ordered By: Ferdinand PIERCE VTE Deep Vein Thrombosis/Pulmonary Embolism Present on Admission: No
[2023-01-08] MEDS: GABAPENTIN 300 MG CAPSULE PO SCH ×2 (08:46→15:59)
[2023-01-08] MEDS: cefTRIAXone 2 GM in DEXTROSE 5% IN WATER 50 ML IV SCH (08:46)
[2023-01-08] MEDS: ENOXAPARIN 40 MG/0.4 ML SYRINGE SQ SCH (08:46)
[2023-01-08] MEDS: METOPROLOL TARTRATE 50 MG TABLET PO SCH (08:47)
[2023-01-08] MEDS: ASPIRIN 81 MG TAB.CHEW PO SCH (08:47)
[2023-01-08] MEDS: amLODIPine 10 MG TABLET PO SCH (08:47)
[2023-01-08] MEDS: hydrALAZINE 25 MG TABLET PO SCH (08:47)
[2023-01-08] MEDS: FAMOTIDINE 20 MG TABLET PO SCH (08:47)
[2023-01-08] MEDS: TAMSULOSIN 0.4 MG CAPSULE PO SCH (08:47)
[2023-01-08] MEDS: ISOSORBIDE MONONITRATE 60 MG TAB.XL.24H PO SCH (08:47)
[2023-01-08] MEDS: POTASSIUM CHLORIDE 20 MEQ TABLET PO SCH (08:47)
[2023-01-08] MEDS: DOCUSATE SODIUM 100 MG CAPSULE PO SCH (08:47)
[2023-01-08] MEDS: LOSARTAN 50 MG TABLET PO SCH (08:48)
[2023-01-08] MEDS: Diclofenac Sodium 75 mg tablet,delayed release PO SCH (08:48)
[2023-01-08] MEDS: oxyCODONE/APAP 5/325MG TABLET PO PRN (08:55)
[2023-01-08] MEDS ORDERED: SULFAMETHOXAZOLE/TRIMETHOPRIM 1 TABLET PO ONE (09:46)
== END 2023-01-08 14:50 | disposition home or self-care (01) | DRG 872 ==
LOC: ED 09:52 → MEDSUR 16:25
PROVIDERS: ADMIT Internal Medicine; ATTEND Internal Medicine

== ENCOUNTER 2024-11-27 16:04 | Inpatient (IN) ==
[2024-11-27] MEDS ORDERED: IOPAMIDOL 100 ML BOTTLE IV ONE (16:05)
[2024-11-27 16:49] LABS: Basophils # (Auto) 0.04 K/mcL (0.00-0.30); Basophils % (Auto) 0.3 % (0.0-2.0); Eosinophils # (Auto) 0.08 K/mcL (0.00-0.70); Eosinophils % (Auto) 0.6 % (0.0-7.0); Hematocrit 39.4 % (40.1-51.0); Hemoglobin 12.6 g/dL (13.7-17.5); Lymphocytes # (Auto) 0.66 K/mcL (1.50-4.80); Lymphocytes % (Auto) 5.3 % (15.5-49.0); Mean Cell Volume 92.9 fL (80.0-100.0); Mean Platelet Volume 9.6 fL (8.8-12.5); Monocytes # (Auto) 0.94 K/mcL (0.10-0.90); Monocytes % (Auto) 7.6 % (1.0-12.0); Platelet Count 207 K/mcL (140-440); RBC 4.24 M/mcL (4.63-6.08); Red Cell Distribution Width 13.4 % (11.5-14.5); WBC 12.4 K/mcL (4.5-11.0)
[2024-11-27 17:34] LABS: Appearance,Urine Clear (Clear); Bilirubin,Urine Negative (Negative); Color,Urine Yellow; Glucose,Urine (UA) Negative (Negative); Ketones,Urine Negative (Negative); Leukocyte Esterase,Urine Negative /uL (Negative); Nitrate,Urine Negative (Negative); Protein,Urine Negative (Negative); Specific Gravity,Urine 1.015 (1.000-1.035); Urine Blood Trace-intact ery/mcL (Negative); Urine RBC 4 /hpf (0-3); Urine Squamous Epithelial Cell 2 /hpf (0-4); Urine WBC 3 /hpf (0-4); Urobilinogen,Urine Normal
[2024-11-27 17:37] LABS: Thyroid Stimulating Hormone 0.89 uIU/mL (0.27-5.01)
[2024-11-27 17:44] LABS: ALT/SGPT < 5 U/L (<40); AST/SGOT 14 U/L (<40); Albumin 3.9 gm/dL (3.2-5.2); Albumin/Globulin Ratio 1.2 (1.0-2.3); Alkaline Phosphatase 59 U/L (39-117); Bilirubin,Total 0.4 mg/dL (0.1-1.0); Blood Urea Nitrogen 15 mg/dL (8-23); Calcium 9.2 mg/dL (8.6-10.4); Carbon Dioxide 24 mmol/L (22-30); Chloride 102 mmol/L (96-108); Globulin 3.3 gm/dL (2.2-3.7); Glomerular Filtration Rate 105; Glucose 119 mg/dL (70-105); Potassium 4.1 mmol/L (3.3-5.1); Sodium 140 mmol/L (133-145)
[2024-11-27 20:32] LABS: Amphetamine Screen,Urine None detected; Barbiturate Screen,Urine None detected; Benzodiazepines Screen,Urine None detected; Cannabinoid Screen,Urine None detected; Cocaine Screen,Urine None detected; Fentanyl, Urine Screen None Detected; Opiate Screen,Urine None detected; Oxycodone, Urine Screen Suspect Positive; Phencyclidine Screen,Urine None detected
[2024-11-27] MEDS: AZITHROMYCIN 500 MG in 0.9 % SODIUM CHLORIDE 250 ML IV ONE (22:57)
[2024-11-27] MEDS: cefTRIAXone 2 GM in DEXTROSE 5% IN WATER 50 ML IV ONE (22:57)
[2024-11-28] MEDS ORDERED: ONDANSETRON 4 MG/2 ML VIAL IV PRN (00:26)
[2024-11-28] MEDS ORDERED: ZOLPIDEM 5 MG TABLET PO PRN (00:26)
[2024-11-28] MEDS ORDERED: CALCIUM CARBONATE 500 MG TAB.CHEW CHEWED PRN (00:26)
[2024-11-28] MEDS ORDERED: HYDROmorphone 0.5 MG/0.5 ML SYRINGE IV PRN (00:26)
[2024-11-28] MEDS ORDERED: DEXTROSE 50% 50 ML VIAL IV PRN (00:26)
[2024-11-28] MEDS ORDERED: MAGNESIUM HYDROXIDE 30 ML ORAL.SUSP PO PRN (00:26)
[2024-11-28] MEDS ORDERED: DEXTROSE 31 GM ORAL.SUSP PO PRN (00:26)
[2024-11-28] MEDS ORDERED: IPRATROPIUM/ALBUTEROL 3 ML AMPUL.NEB NEB PRN (00:26)
[2024-11-28] MEDS ORDERED: SENNOSIDES 1 TABLET PO PRN (00:26)
[2024-11-28] MEDS ORDERED: IBUPROFEN 600 MG TABLET PO PRN (00:26)
[2024-11-28] MEDS ORDERED: ONDANSETRON 4 MG ODT TABLET SL PRN (00:26)
[2024-11-28] MEDS ORDERED: NITROGLYCERIN 0.4 MG TAB.SUBL SL PRN (00:26)
[2024-11-28] MEDS ORDERED: MAG HYDROX/AL HYDROX/SIMETH 30 ML ORAL.SUSP PO PRN (00:26)
[2024-11-28] MEDS: AZITHROMYCIN 500 MG in DEXTROSE 5% IN WATER 250 ML IV SCH (00:47)
[2024-11-28] MEDS: cefTRIAXone 1 GM VIAL IV SCH (00:47)
[2024-11-28] MEDS: 0.9 % SODIUM CHLORIDE 1,000 ML IV SCH (00:48)
[2024-11-28] MEDS: 0.9 % SODIUM CHLORIDE 10 ML SYRINGE IV SCH (05:26)
[2024-11-28 06:10] LABS: Basophils # (Auto) 0.03 K/mcL (0.00-0.30); Basophils % (Auto) 0.3 % (0.0-2.0); Eosinophils # (Auto) 0.07 K/mcL (0.00-0.70); Eosinophils % (Auto) 0.7 % (0.0-7.0); Hematocrit 38.4 % (40.1-51.0); Hemoglobin 12.3 g/dL (13.7-17.5); Lymphocytes # (Auto) 1.52 K/mcL (1.50-4.80); Lymphocytes % (Auto) 14.6 % (15.5-49.0); Mean Cell Volume 93.9 fL (80.0-100.0); Mean Platelet Volume 9.4 fL (8.8-12.5); Monocytes # (Auto) 0.88 K/mcL (0.10-0.90); Monocytes % (Auto) 8.5 % (1.0-12.0); Neutrophils % (Auto) 75.8 % (38.0-78.0); Platelet Count 199 K/mcL (140-440); RBC 4.09 M/mcL (4.63-6.08); Red Cell Distribution Width 13.1 % (11.5-14.5); WBC 10.4 K/mcL (4.5-11.0)
[2024-11-28 06:35] LABS: Blood Urea Nitrogen 9 mg/dL (8-23); Calcium 9.2 mg/dL (8.6-10.4); Carbon Dioxide 24 mmol/L (22-30); Chloride 105 mmol/L (96-108); Glomerular Filtration Rate 114; Glucose 124 mg/dL (70-105); Potassium 3.5 mmol/L (3.3-5.1); Sodium 140 mmol/L (133-145)
[2024-11-28] MEDS: INSULIN LISPRO 1 UNIT/0.01 ML UNIT SQ SCH (07:03)
[2024-11-28] MEDS: ASPIRIN 81 MG TAB.CHEW CHEWED SCH (08:39)
[2024-11-28] MEDS: ATORVASTATIN 20 MG TABLET PO SCH (08:39)
[2024-11-28] MEDS: FAMOTIDINE 20 MG TABLET PO SCH (08:39)
[2024-11-28] MEDS: GABAPENTIN 300 MG CAPSULE PO SCH (08:39)
[2024-11-28] MEDS: METOPROLOL TARTRATE 50 MG TABLET PO SCH (08:39)
[2024-11-28] MEDS: ENOXAPARIN 40 MG/0.4 ML SYRINGE SQ SCH (08:39)
[2024-11-28] MEDS: ISOSORBIDE MONONITRATE 60 MG TAB.XL.24H PO SCH (08:39)
[2024-11-28] MEDS: DOCUSATE SODIUM 100 MG CAPSULE PO SCH (08:39)
[2024-11-28] MEDS: AZITHROMYCIN 500 MG in 0.9 % SODIUM CHLORIDE 250 ML IV SCH (13:18)
[2024-11-28] MEDS: oxyCODONE IR 5 MG TABLET PO PRN (14:56)
[2024-11-28] MEDS: ACETAMINOPHEN 325 MG TABLET PO PRN (19:07)
[2024-11-29] MEDS: oxyCODONE/APAP 10/325MG TABLET PO PRN (02:56)
[2024-11-29 06:17] LABS: Basophils # (Auto) 0.06 K/mcL (0.00-0.30); Basophils % (Auto) 0.6 % (0.0-2.0); Eosinophils # (Auto) 0.25 K/mcL (0.00-0.70); Eosinophils % (Auto) 2.5 % (0.0-7.0); Hematocrit 33.8 % (40.1-51.0); Hemoglobin 10.8 g/dL (13.7-17.5); Lymphocytes # (Auto) 1.42 K/mcL (1.50-4.80); Mean Cell Volume 93.4 fL (80.0-100.0); Mean Platelet Volume 9.7 fL (8.8-12.5); Monocytes # (Auto) 0.89 K/mcL (0.10-0.90); Monocytes % (Auto) 8.8 % (1.0-12.0); Platelet Count 205 K/mcL (140-440); RBC 3.62 M/mcL (4.63-6.08); Red Cell Distribution Width 13.4 % (11.5-14.5); WBC 10.1 K/mcL (4.5-11.0)
[2024-11-29 06:37] LABS: ALT/SGPT 5 U/L (<40); AST/SGOT 15 U/L (<40); Albumin 3.5 gm/dL (3.2-5.2); Albumin/Globulin Ratio 1.2 (1.0-2.3); Alkaline Phosphatase 56 U/L (39-117); Bilirubin,Total 0.5 mg/dL (0.1-1.0); Blood Urea Nitrogen 15 mg/dL (8-23); Calcium 8.9 mg/dL (8.6-10.4); Carbon Dioxide 26 mmol/L (22-30); Chloride 107 mmol/L (96-108); Globulin 2.9 gm/dL (2.2-3.7); Glomerular Filtration Rate 99; Glucose 106 mg/dL (70-105); Potassium 3.6 mmol/L (3.3-5.1); Sodium 143 mmol/L (133-145)
[2024-11-29 11:39] VITALS: TEMP 98.4; O2SAT 98
== END 2024-11-29 14:39 | disposition home or self-care (01) | DRG 871 ==
LOC: ED 16:04 → MEDSUR 11-28 00:25
PROVIDERS: ADMIT Internal Medicine; ATTEND Internal Medicine